=== PATIENT | male | born 1975 | race Hispanic/Latino ===

== ENCOUNTER → 2018-11-07 15:30 | Outpatient (CLI) | payer OTHER, SELFPAY ==
--- NOTE | 2018-11-07 15:41 | RAD_ITS ---
STUDY: X-RAY - CERVICAL SPINE REASON FOR EXAM: Male, 43 years old. Headaches, head pressure. TECHNIQUE: 6 view(s) of the cervical spine were obtained. COMPARISON: None FINDINGS: Normal anterior atlantoaxial articulation. Normal odontoid process. Normal cervical lordosis. There is mild endplate spondylolysis at C6-C7. Normal visualized intervertebral neuroforamina. The soft tissue structures are unremarkable. RAD/Cerv Spine 4 or 5 Views IMPRESSION: Mild degenerative changes at C6-C7. Electronically Signed: Loreto Mosher MD at 17:37 EDT Tel , Service support ,
== END ==
PROVIDERS: Family Provider Family Medicine; PCP Family Medicine; Referring Provider Family Medicine; Visit Provider Family Medicine
DX: R51 Headache (principal)
CPT/HCPCS: 72050

== ENCOUNTER → 2019-02-10 07:55 | Outpatient (CLI) | payer OTHER, SELFPAY ==
[2019-02-10 10:16] LABS: Cholesterol 209 mg/dL (200); High Density Lipoprotein 33 mg/dL; Triglycerides 615 mg/dL
== END ==
PROVIDERS: Family Provider Family Medicine; PCP Family Medicine; Referring Provider Family Medicine; Visit Provider Family Medicine
DX: R73.01 Impaired fasting glucose (principal)
CPT/HCPCS: 36415; 80061

== ENCOUNTER → 2019-03-06 15:41 | Outpatient (CLI) | payer OTHER, SELFPAY ==
[2019-03-06 17:41] LABS: Erythrocyte Sedimentation Rate 3 mm/hr (0-15)
[2019-03-06 17:48] LABS: ALB/GLOB Ratio 1.1 RATIO (0.9-2.4); AST(SGOT) 28 U/L (15-37); Alanine Aminotransfer ALT/SGPT 59 U/L (16-61); Albumin, Serum 3.8 g/dL (3.2-5.0); Alkaline Phosphatase 66 U/L (45-117); Anion Gap 5 (5-15); BUN 13 mg/dL (7-18); BUN/Creat Ratio 11.8 RATIO (10-20); CRP < 2.90 mg/L (0.0-3.0); Calcium,Total 8.8 mg/dL (8.5-10.1); Chloride 105 mmol/L (98-107); EST Glomerular Filtration Rate 78 mL/min (>60); Est Glom Filt Rate - Afr Amer 95 mL/min (>60); Globulin 3.5 g/dL (2.2-4.2); Glucose 95 mg/dL (74-106); Potassium 3.7 mmol/L (3.5-5.1); Protein, Total 7.3 g/dL (6.4-8.2); Sodium Level 137 mmol/L (136-145)
== END ==
PROVIDERS: Family Provider Family Medicine; PCP Family Medicine; Referring Provider Family Medicine; Visit Provider Family Medicine
DX: R51 Headache (principal)
CPT/HCPCS: 36415; 80053; 85652; 86140

== ENCOUNTER → 2019-07-26 12:21 | Outpatient (CLI) | payer OTHER, SELFPAY | PROVIDERS: PCP Family Medicine; Referring Provider Physician Assistant; Visit Provider Physician Assistant | DX: Z11.59 Encounter for screening for other viral diseases (principal) | CPT/HCPCS: 87635; G2023; U0003 ==

== ENCOUNTER 2019-09-15 15:30 | Emergency (ER) | payer OTHER, SELFPAY ==
[2019-09-15 15:31] VITALS: BP 135/98; PULSE 104; RESP 18; TEMP 36.5; O2SAT 94; BMI 25.9
--- NOTE | 2019-09-15 15:40 | CT_ITS ---
STUDY: CT BRAIN WITHOUT CONTRAST REASON FOR EXAM: Male, 43 years old. Headache X 3 WEEKS RADIATION DOSAGE (If Supplied By Facility): CTDIvol = ( 44.99 ) mGy, DLP = ( 762.36 ) mGycm TECHNIQUE: Transaxial CT imaging of the brain was performed without administration of intravenous contrast material. Individualized dose optimization techniques were used for this CT. COMPARISON: No relevant priors. FINDINGS: Normal soft tissue structures. Normal calvarium. Normal size ventricles and extra-axial spaces for the patient''s age. Normal white matter tracts of the cerebral hemispheres. Normal basal ganglia and thalami. Normal brainstem. Normal cerebellum. There is no intracranial hemorrhage. There are no findings of an acute ischemic infarction. Normal visualized paranasal sinuses. CT/Brain/Head without Contrast IMPRESSION: Normal unenhanced CT scan of the brain. Electronically Signed: Dudley Smith MD at 16:30 EDT , Service support ,
--- NOTE | 2019-09-15 15:41 | EKG12_ITS ---
Test Reason : Blood Pressure : / mmHG Vent. Rate : 075 BPM Atrial Rate : 075 BPM P-R Int : 134 ms QRS Dur : 088 ms QT Int : 354 ms P-R-T Axes : 030 013 029 degrees QTc Int : 395 ms Normal sinus rhythm Normal ECG Confirmed by HAYDE BARBOZA MD ([id number]), acquisition editor MALINI LAGUERRE ([id number] on 09/18/2019 1:07:35 PM Referred By: CL Confirmed By:HAYDE BARBOZA MD
--- NOTE | 2019-09-15 15:42 | ED.VIS.GEN ---
History of Present Illness Chief Complaint: Headache Informant: Patient Narrative: 43-year-old male with past medical history of hypertension hyperlipidemia presents with increased head pressure. States that he has had the feeling that he has pressure in his head for the past 2 to 3 weeks. States is been constant in nature. States it is worse when he exerts himself. Denies any vision change, fever, chills, neck pain, trauma. Denies any nausea or vomiting. Patient had these symptoms before in the past and felt they were likely related to seasonal allergies. Denies any drugs or alcohol. Past Medical History - Allergies and Home Meds Allergies/Adverse Reactions: Allergies citalopram [From Celexa] Allergy (Verified 09/15/19 15:31) Rash Primary Care Physician: Elida Szymanski MD [Primary Care Provider] - Past Medical History: - - HTN and hypertriglyceridemia Surgical History: no surgical history Lives: Spouse/ Significant Other Smoking Status: Never smoker Alcohol: None Drugs: None Review of Systems General: Denies: Chills, Fever, Sweats Eyes: Denies: Visual changes - bilaterally, Diplopia ENT: Denies: Rhinorrhea, Sore throat Cardiovascular: Denies: Chest pain, Palpitations Respiratory: Denies: Dyspnea, Cough, Dyspnea on exertion Gastrointestinal: Denies: Abdominal pain, Nausea, Vomiting, Diarrhea, Melena, Hematochezia Genitourinary: Denies: Dysuria, Hematuria, Frequency Musculoskeletal: Denies: Back pain, Extremity Pain Skin: Denies: Rash, Wounds Neurological: Reports: Headache. Denies: Weakness, Numbness Physical Exam Vital Signs/Narrative: Vital Signs Temp Pulse Resp BP Pulse Ox 09/15/19 15:31 97.7 F L 104 H 18 135/98 H 94 Inital Vital Signs reviewed: Yes General: Well nourished, Well developed, No Acute Distress Head: Normocephalic, Atraumatic Eyes: Perrl, EOMI ENT: Moist mucous membranes, No rhinorrhea Neck: Supple, Nontender Cardiovascular: Regular rate, Regular rhythm, No murmurs Respiratory: No distress, CTA bilaterally, Chest nontender Abdomen: Soft, Nontender, Nondistended, Normal bowel sounds Back: Nontender, Normal Inspection Extremities: Nontender, No edema Skin: Normal color, No rash Neurological: Alert, Oriented x3, Cranial nerves II-XII grossly intact, Normal Strength, Normal Sensation Psychological: Normal affect, Normal Mood Diagnostic/Tx/Re-eval Clinical Impression(s) from Imaging Studies Brain CT 09/15/19 15:40 IMPRESSION: Normal unenhanced CT scan of the brain. Electronically Signed: Dudley Smith MD at 16:30 EDT , Service support , Laboratory Data 09/15/19 09/15/19 15:55 15:55 WBC 6.4 RBC 5.16 Hgb 15.0 Hct 43.2 MCV 83.7 MCH 29.1 MCHC 34.7 RDW Std Deviation 39.1 RDW Coeff of Rajan 13.0 Plt Count 200 MPV 10.9 Immature Gran % (Auto) 0.300 Neut % (Auto) 58.8 Lymph % (Auto) 29.1 Dale % (Auto) 8.3 Eos % (Auto) 3.0 Baso % (Auto) 0.5 Absolute Neuts (auto) 3.7 Absolute Lymphs (auto) 1.85 Nucleated RBC % 0 Sodium 142 Potassium 3.8 Chloride 112 H Carbon Dioxide 27.0 Anion Gap 3 L BUN 18 Creatinine 1.21 Estim Creat Clear Calc 80.34 Est GFR (MDRD) Af Amer 85 Est GFR (MDRD) Non-Af 70 BUN/Creatinine Ratio 14.9 Glucose 130 H Calcium 8.6 Troponin I < 0.015 - Rhythm Strip Rhythm Strip: Sinus Rhythm Rate: 75 Ectopy: None - EKG Initial EKG Interpretation: Sinus Rhythm - Sinus rhythm at 75 bpm. NM interval 134 ms. QTC of 395 ms. No evidence of acute ischemia. - Medical Decision Making Patient appears well nontoxic. Vital signs within normal limits. Focal neurologic deficit. CT brain negative. Patient symptoms were not sudden in onset and not been maximal. Low concern for subarachnoid hemorrhage. Work within normal limits. EKG nonischemic. Troponin negative. Patient will be given Flonase as well as Zyrtec for home. Asked to return for new or worsening symptoms. Discharged home in stable condition. Impression: 1. Headache 2. Seasonal allergies ED Disposition - Plan for ED Patient: Disposition: Home or Assisted Living Instructions: ED Headache Sinus, ED Headache Unspecified Prescriptions: Fluticasone 0.05% [Flonase Nasal [place]] 2 spray NASAL DAILY #1 nasal.sry Prescription Printed Cetirizine HCl [Zyrtec] 10 mg PO DAILY #30 tab Prescription Printed Referrals: Elida Szymanski MD [Primary Care Provider] -
[2019-09-15 15:46] VITALS: BP 131/78; PULSE 81; RESP 16; O2SAT 96
[2019-09-15] MEDS: 0.9% Normal Saline 1,000 ML 999 ML IV (15:56)
[2019-09-15 16:25] LABS: Absolute Lymphocyte Count 1.85 X10^3/uL (0.83-4.51); Absolute Neutrophil Count 3.7 X10^3/uL (2.0-7.7); Basophil# 0.03 X10^3/uL; Basophil% 0.5 % (0-1); Eosinophil# 0.19 X10^3/uL; Hematocrit 43.2 % (40-54); Lymphocyte # 1.85 X10^3/ul (4.0); Lymphocyte % 29.1 % (19-41); Mean Corp Hgb Conc 34.7 g/dL (32-36); Mean Corpuscular Hgb 29.1 pg (27.0-32.0); Mean Corpuscular Volume 83.7 fL (80-94); Mean Platelet Vol. 10.9 fl (6.2-12.0); Monocyte# 0.53 X10^3/uL; Monocyte% 8.3 % (0-10); NRBC Flagged by Analyzer 0 % (0-5); Neutrophil # 3.74 X10^3/uL (2.7-7.7); Neutrophil % 58.8 % (47-70); Platelet Count 200 K/mm3 (150-450); RBC Distribution Width SD 39.1 fl (35.1-43.9); Red Blood Count 5.16 M/mm3 (4.6-6.2); White Blood Count 6.4 K/mm3 (4.4-11.0)
[2019-09-15 16:28] LABS: Anion Gap 3 (5-15); BUN 18 mg/dL (7-18); BUN/Creat Ratio 14.9 RATIO (10-20); Calcium,Total 8.6 mg/dL (8.5-10.1); Chloride 112 mmol/L (98-107); Creatinine, Serum 1.21 mg/dL (0.70-1.30); EST Glomerular Filtration Rate 70 mL/min (>60); Est Glom Filt Rate - Afr Amer 85 mL/min (>60); Estimated Creatinine Clearance 80.34 ml/min; Glucose 130 mg/dL (74-106); Potassium 3.8 mmol/L (3.5-5.1); Sodium Level 142 mmol/L (136-145)
[2019-09-15 17:15] VITALS: BP 120/76; PULSE 75; RESP 19; O2SAT 97
== END 2019-09-15 17:19 | disposition home or self-care (01) ==
PROVIDERS: Emergency Provider Emergency Medicine; PCP Family Medicine
DX: R51 Headache (principal); J30.1 Allergic rhinitis due to pollen; I10 Essential (primary) hypertension; E78.1 Pure hyperglyceridemia; E78.5 Hyperlipidemia, unspecified
CPT/HCPCS: 70450; 80048; 84484; 85025; 93005; 96360; 99284; J7030; A4216

== ENCOUNTER → 2019-09-16 10:25 | Outpatient (CLI) | payer OTHER, SELFPAY ==
[2019-09-15 15:31] VITALS: BMI 25.9
[2019-09-16 11:35] LABS: Hemoglobin A1c 5.7 % (3.8-5.6)
[2019-09-16 11:44] LABS: AST(SGOT) 31 U/L (15-37); Alanine Aminotransfer ALT/SGPT 46 U/L (16-61); Albumin, Serum 3.7 g/dL (3.2-5.0); Alkaline Phosphatase 74 U/L (45-117); Anion Gap 6 (5-15); BUN 14 mg/dL (7-18); BUN/Creat Ratio 13.9 RATIO (10-20); Calcium,Total 8.4 mg/dL (8.5-10.1); Chloride 107 mmol/L (98-107); Cholesterol 229 mg/dL (200); Creatinine, Serum 1.01 mg/dL (0.70-1.30); EST Glomerular Filtration Rate 86 mL/min (>60); Est Glom Filt Rate - Afr Amer 104 mL/min (>60); Globulin 3.7 g/dL (2.2-4.2); Glucose 107 mg/dL (74-106); High Density Lipoprotein 35 mg/dL; Potassium 4.1 mmol/L (3.5-5.1); Protein, Total 7.4 g/dL (6.4-8.2); Sodium Level 138 mmol/L (136-145); Triglycerides 413 mg/dL
== END ==
PROVIDERS: PCP Family Medicine; Referring Provider Family Medicine; Visit Provider Family Medicine
DX: E78.5 Hyperlipidemia, unspecified (principal); R51 Headache; Z83.3 Family history of diabetes mellitus
CPT/HCPCS: 36415; 80053; 80061; 83036

== ENCOUNTER → 2019-10-04 15:41 | Outpatient (CLI) | payer OTHER, SELFPAY ==
[2019-09-15 15:31] VITALS: BMI 25.9
[2019-10-04 17:36] LABS: Erythrocyte Sedimentation Rate 4 mm/hr (0-15)
[2019-10-04 17:53] LABS: CRP < 2.90 mg/L (0.0-3.0)
== END ==
PROVIDERS: PCP Family Medicine; Referring Provider Psychiatry & Neurology Neurology; Visit Provider Psychiatry & Neurology Neurology
DX: G43.011 Migraine without aura, intractable, with status migrainosus (principal)
CPT/HCPCS: 36415; 85652; 86140

== ENCOUNTER → 2019-10-12 15:27 | Outpatient (CLI) | payer OTHER, SELFPAY ==
[2019-10-12 15:12] VITALS: BMI 25.9
--- NOTE | 2019-10-12 15:28 | RAD_ITS ---
STUDY: X-RAY - CERVICAL SPINE REASON FOR EXAM: Male, 43 years old. Pain TECHNIQUE: 6 view(s) of the cervical spine were obtained. COMPARISON: None FINDINGS: There is no evidence of fracture or dislocation in the cervical spine. The dens is intact. The vertebral body heights and disc spaces are well-maintained. There are no significant degenerative changes. There is straightening of the cervical lordosis. The prevertebral soft tissues are unremarkable. There is no radiodense foreign body. RAD/Cerv Spine 4 or 5 Views IMPRESSION: No fracture or dislocation in the cervical spine. Straightening of the cervical spine which can be seen with paraspinal muscle spasm. Electronically Signed: Stan Sher, at 16:36 EDT Tel , Service support ,
== END ==
PROVIDERS: PCP Family Medicine; Referring Provider Physician Assistant; Visit Provider Physician Assistant
DX: R51 Headache (principal)
CPT/HCPCS: 72050

== ENCOUNTER → 2019-10-13 16:03 | Outpatient (CLI) | payer OTHER, SELFPAY ==
[2019-09-15 15:31] VITALS: BMI 25.9
[2019-10-12 15:12] VITALS: BMI 25.9
--- NOTE | 2019-10-13 16:45 | MRI_ITS ---
STUDY: MRI BRAIN WITH AND WITHOUT CONTRAST REASON FOR EXAM: Male, 43 years old. chronic occipital h/a TECHNIQUE: Standardized multiplanar fat and water weighted pulse sequences were obtained. 16ml Dotarem via IV was administered for the contrast portion of the examination. COMPARISON: September [address] head FINDINGS: Normal size of the ventricles and extra-axial spaces for the patient''s age. Normal white matter tracts of the supratentorial brain. Normal bilateral basal ganglia. Normal thalami. There is no extra-axial fluid accumulation. There is an incidental left frontal development of venous anomaly. Normal flow voids within the major intracranial circulation suggesting patency by spin echo criteria. Normal venous enhancement. There is no enhancing intra-axial or extra-axial abnormality. Normal sella turcica, pituitary gland, infundibular stalk, optic chiasm and hypothalamus. Normal tectal plate and pineal gland. Normal midbrain, ignacio and medulla. Normal cerebellum. Normal basal cisterns. Normal bilateral temporal bones. Normal bilateral internal auditory canals. No demonstrated orbital abnormality, within the constraints of a routine brain study. Normal visualized paranasal sinuses. Normal calvarium and skull base. Normal visualized soft tissue structures. Normal visualized upper cervical spine. MRI/Brain W/WO Contrast IMPRESSION: Normal brain MRI. Electronically Signed: Brandy Vasques, at 17:35 EDT Tel , Service support ,
== END ==
PROVIDERS: PCP Family Medicine; Referring Provider Family Medicine; Visit Provider Family Medicine
DX: G43.C1 Periodic headache syndromes in child or adult, intractable (principal)
CPT/HCPCS: 70553; A9575

== ENCOUNTER 2020-04-28 22:29 | Emergency (ER) | payer OTHER, SELFPAY ==
[2020-04-28 22:30] VITALS: BP 158/113; PULSE 73; RESP 15; TEMP 36.8; O2SAT 97; BMI 27.0
--- NOTE | 2020-04-28 22:48 | ED.DCSUM_ITS ---
- ER Visit Summary Date of Service: 04/28/20 Chief Complaint: Head throbbing and ears ringing with elevated blood pressure last several days. History of Present Illness: The patient is a 44 M history of high cholesterol and prior migraine headaches. Patient states the last 3 days has noticed his blood pressure has been elevated he has had throbbing to his head and ringing in his ears. He is not treated for hypertension. He denies any chest pain or shortness of breath. Physical Examination: Middle-aged male no acute distress vital signs initial blood pressure 158/113 otherwise stable and afebrile. H EENT exam unremarkable. Pupils round reactive extra motions are intact no facial droop. Normal speech. Moist mucous membranes. Neck nontender no lymphadenopathy. Lungs clear to auscultation bilaterally. Heart regular rhythm rate about 70 no murmur. Abdomen soft nontender normal bowel sounds no peritoneal signs. Patient moving all 4 extremities. 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 Dorsi plantarflexion intact. No edema. Neurologically is awake and alert with no focal motor deficits. NIH score is 0. Test Results: None Emergency Department Course and Treatment: Patient has a normal exam. He is aracely vated blood pressure symptoms may be from untreated and undiagnosed hypertension. He will be given 20 mg of p.o. lisinopril and observed. Repeat exam at 2355 patient is doing well. Neurologic exam remains normal. His blood pressure is currently running 141/95. Treatment Plan: Log blood pressures twice daily. Follow-up with his primary care physician to recheck his blood pressure and decide if they need to adjust the dosage or change the medication. Lisinopril 20 mg once a day. Disposition: Discharge Impression: Newly diagnosed hypertension This note was generated with [employer] ([employer]) dictation software. It may contain incorrect words, spelling, and punctuation that were not noted in review of the chart prior to signing ED Disposition - Plan for ED Patient: Referrals: Brayden Leon DO [Primary Care Provider] -
[2020-04-28 23:00] VITALS: BP 139/89
[2020-04-28] MEDS: Lisinopril 20 MG Tablet PO (23:09)
[2020-04-28 23:43] VITALS: BP 141/95; PULSE 76; RESP 22; O2SAT 96
--- NOTE | 2020-04-28 23:57 | ED.DEP ---
ED Disposition - Plan for ED Patient: Disposition: Home or Assisted Living Instructions: ED Hypertension, New (Begin Treatment) Prescriptions: Lisinopril [Zestril] 20 mg PO DAILY #30 tab Prescription Printed Referrals: Brayden Leon DO [Primary Care Provider] - 5-7 Days Additional Instructions: Log your blood pressures twice daily and when you follow-up with your doctor show me your pressure reading so they can decide if they need to adjust the blood pressure medication. Lisinopril the blood pressure medication 20 mg once a day. Hold the medication if your blood pressure is running below 100.
== END 2020-04-29 00:06 | disposition home or self-care (01) ==
PROVIDERS: Emergency Provider Emergency Medicine; PCP Family Medicine
DX: I10 Essential (primary) hypertension (principal); E78.00 Pure hypercholesterolemia, unspecified; Z79.899 Other long term (current) drug therapy
CPT/HCPCS: 99284

== ENCOUNTER → 2020-05-29 15:21 | Outpatient (CLI) | payer OTHER, SELFPAY ==
--- NOTE | 2020-05-29 15:27 | MRI_ITS ---
STUDY: MRA NECK WITH AND WITHOUT CONTRAST REASON FOR EXAM: Male, 44 years old. HEADACHE, HTN, THROBBING SENSATION IN EARS TECHNIQUE: 3-D [id number] (TOF) imaging was performed in an 1.5 T MRI scanner. dotarem 15ml IV was administered for the contrast enhanced images. COMPARISON: None. FINDINGS: RIGHT CAROTID ARTERIES: Normal right common carotid artery (CCA). Normal right common carotid bulb. Normal origin of the right internal carotid (ICA) artery without a hemodynamically significant stenosis. Normal visualized cervical portion of the right internal carotid artery. Normal origin of the right external carotid artery (ECA). LEFT CAROTID ARTERIES: Normal left common carotid artery (CCA). Normal left common carotid bulb. Normal origin of the left internal carotid (ICA) artery without a hemodynamically significant stenosis. Normal visualized cervical portion of the left internal carotid artery. Normal origin of the left external carotid artery (ECA). VERTEBRAL ARTERIES: Normal antegrade flow within the bilateral vertebral artery without a hemodynamically significant stenosis. MRI/MRA Neck WITH and W/O Contrast IMPRESSION: Normal bilateral cervical carotid and vertebral arteries. Electronically Signed: Marco Martinez MD at 16:21 EDT Tel , Service support ,
--- NOTE | 2020-05-29 15:27 | MRI_ITS ---
STUDY: MRA OF THE HEAD WITHOUT CONTRAST REASON FOR EXAM: Male, 44 years old. HEADACHE, HTN, THROBBING SENSATION IN HIS EARS TECHNIQUE: 3-D [id number] (TOF) imaging was performed with MIPs. The study was performed unenhanced. COMPARISON: None. FINDINGS: Normal bilateral petrous carotid arteries. Normal right cavernous carotid artery with a normal supraclinoid bifurcation. Normal left cavernous carotid artery with a normal supraclinoid bifurcation. Normal right A1 segments of the anterior cerebral artery. Normal left A1 segments of the anterior cerebral artery. Normal intact anterior communicating artery (ACOM). Normal bilateral A2 segments of the anterior cerebral arteries. Normal right M1 and M2 segments of the middle cerebral arteries, with a normal M1 bifurcation. Normal left M1 and M2 segments of the middle cerebral arteries, with a normal M1 bifurcation. Normal right posterior communicating artery (PCOM). Normal left posterior communicating artery (PCOM). Normal bilateral vertebral arteries. Normal basilar artery with a normal basilar bifurcation. The visualized bilateral superior cerebellar (SCA) arteries are normal. Normal bilateral P1, P2 and visualized P3 segments of the posterior cerebral arteries. There is no demonstrated aneurysm of the [place]. There is no major vessel occlusion or hemodynamically significant stenosis. There is no demonstrated abnormality of the visualized brain. MRI/MRA Head ONLY without Contrast IMPRESSION: Normal MRA of the head Electronically Signed: Marco Martinez MD at 16:22 EDT Tel , Service support ,
== END ==
PROVIDERS: PCP Family Medicine; Referring Provider Family Medicine; Visit Provider Family Medicine
DX: R51.9 Headache, unspecified (principal); I10 Essential (primary) hypertension
CPT/HCPCS: 70544; 70549; A9575

== ENCOUNTER → 2020-07-23 06:09 | Outpatient (CLI) | payer OTHER, SELFPAY ==
[2020-07-23 07:02] LABS: Absolute Lymphocyte Count 1.94 X10^3/uL (0.83-4.51); Absolute Neutrophil Count 3.2 X10^3/uL (2.0-7.7); Basophil# 0.04 X10^3/uL; Basophil% 0.7 % (0-1); Eosinophils% 4.9 % (0-5); Hematocrit 43.4 % (40-54); Hemoglobin 14.8 g/dL (13.0-16.5); Lymphocyte # 1.94 X10^3/ul (0.83-4.51); Lymphocyte % 31.6 % (19-41); Mean Corp Hgb Conc 34.1 g/dL (32-36); Mean Corpuscular Hgb 29.1 pg (27.0-32.0); Mean Corpuscular Volume 85.4 fL (80-94); Mean Platelet Vol. 10.9 fl (6.2-12.0); Monocyte# 0.58 X10^3/uL; Monocyte% 9.5 % (0-10); NRBC Flagged by Analyzer 0 % (0-5); Neutrophil # 3.23 X10^3/uL (2.7-7.7); Neutrophil % 52.6 % (47-70); Platelet Count 207 K/mm3 (150-450); RBC Distribution Width CV 12.3 % (11.6-14.6); RBC Distribution Width SD 38.5 fl (35.1-43.9); Red Blood Count 5.08 M/mm3 (4.6-6.2); White Blood Count 6.1 K/mm3 (4.4-11.0)
[2020-07-23 07:25] LABS: AST(SGOT) 29 U/L (15-37); Alanine Aminotransfer ALT/SGPT 51 U/L (16-61); Albumin, Serum 3.5 g/dL (3.2-5.0); Alkaline Phosphatase 80 U/L (45-117); Anion Gap 6 (5-15); BUN 13 mg/dL (7-18); Calcium,Total 8.4 mg/dL (8.5-10.1); Chloride 106 mmol/L (98-107); Cholesterol 194 mg/dL (200); EST Glomerular Filtration Rate 87 mL/min (>60); Est Glom Filt Rate - Afr Amer 105 mL/min (>60); Globulin 3.6 g/dL (2.2-4.2); Glucose 107 mg/dL (74-106); High Density Lipoprotein 34 mg/dL; Potassium 3.6 mmol/L (3.5-5.1); Protein, Total 7.1 g/dL (6.4-8.2); Sodium Level 139 mmol/L (136-145); Triglycerides 391 mg/dL; Very Low Density Lipoprotein 78 mg/dL (5-40)
[2020-07-23 08:33] LABS: Hemoglobin A1c 5.5 % (3.8-5.6)
== END ==
PROVIDERS: PCP Family Medicine; Referring Provider Family Medicine; Visit Provider Family Medicine
DX: Z00.00 Encounter for general adult medical examination without abnormal findings (principal); R73.01 Impaired fasting glucose
CPT/HCPCS: 36415; 80053; 80061; 83036; 85025

== ENCOUNTER 2021-05-12 22:10 | Emergency (ER) | payer OTHER, SELFPAY ==
[2021-05-12 22:12] VITALS: BP 163/102; PULSE 82; RESP 16; TEMP 36.4; O2SAT 98; BMI 27.8
[2021-05-12 22:38] VITALS: BP 142/89
--- NOTE | 2021-05-12 22:41 | EX.ED.DYSGE1 ---
HPI <Dr. Jud Espinal MD - Last Filed: 05/13/21 01:26> History of Present Illness Chief Complaint: Headache <SUNDAY MCDOWELL - Last Filed: 05/13/21 01:23> History of Present Illness Informant: patient Onset/Context/Timing Onset: Days (3) Context: Sudden Onset Timing: Continuous Quality: Throbbing Maximum Severity: Severe Narrative Narrative: Patient presents secondary to headache for 3 days. Patient describes the pain as a constant throbbing starting at the base of his head radiating to the top of his head. Patient states he has dizziness with this, but denies nausea, vomiting, sensitivity to light, lack of coordination. Patient states he has history of similar symptoms, and has seen his primary care physician for the same in the past without definite diagnosis or effective treatment. Patient states he does have arthritis at C6/C7 discovered in previous work-up by primary care doctor. Patient did attempt relief with [id number] medications prior to arrival including ibuprofen 600 mg at 0500 and acetaminophen 1000 mg at 2200. Patient states these were not effective. Patient states he also took his blood pressure at home prior to arrival, noted this was elevated which concerned him, and presented to ED. Prior similar symptoms: Yes Recent Illness/Hospitalization: No PFSH <Dr. Jud Espinal MD - Last Filed: 05/13/21 01:26> PFSH Medical History High cholesterol Migraines Seasonal allergies Home Medications atorvastatin 20 mg tablet 20 mg PO QHS 10/17/20 [History Last Taken Unknown] fenofibrate nanocrystallized 145 mg tablet 145 mg PO DAILY 10/17/20 [History Last Taken Unknown] finasteride 1 mg PO DAILY 05/12/21 [History Last Taken Unknown] Allergy/AdvReac Type Severity Reaction Status Date / Time citalopram [From Celexa] Allergy Rash Verified 05/12/21 22:15 Seasonal Allergies Allergy Unknown Unknown Uncoded 05/12/21 22:15 Family History Father Diabetes Myocardial infarction, Onset Age: 80 Mother Hyperlipemia Surgical History History of rotator cuff surgery History of shoulder surgery Social History Smoking Status: Never smoker alcohol intake: never substance use type: does not use what type of physical activity do you participate in: running and weight training frequency: 5-6 times per week <SUNDAY MCDOWELL - Last Filed: 05/13/21 01:23> ROS ED Constitutional Constitutional ED: Denies chills, fever(s), sweats or weight loss Eyes Eyes: Denies blurry vision, change in vision or diplopia ENT ENT ED: Denies ear pain, rhinorrhea or sore throat Cardiovascular Cardiovascular: Denies chest pain Respiratory/Chest Respiratory/Chest: Denies cough or dyspnea Gastrointestinal Gastrointestinal: Denies abdominal pain, constipation, diarrhea, nausea or vomiting Genitourinary Genitourinary ED: Denies dysuria or urinary frequency Musculoskeletal Musculoskeletal: Reports neck pain; Denies arthralgias or myalgias Integumentary Denies rash Neurologic Neurologic: Reports as per HPI and headache(s); Denies dizziness, focal weakness, lack of coordination, loss of vision, memory loss, radicular pain or weakness Psychiatric Psychiatric: Denies anxiety or depression Endocrine Endocrinology: Denies polydipsia or polyuria EXAM <Dr. Jud Espinal MD - Last Filed: 05/13/21 01:26> Physical Exam Const Vital Signs: 05/12/21 22:12 05/12/21 22:38 05/13/21 00:50 Temperature 97.6 F L Temperature Source Temporal Pulse Rate 82 75 Respiratory Rate 16 17 Blood Pressure 163/102 H 142/89 H 130/74 H Blood Pressure Mean 122 106 92 Pulse Ox 98 98 Oxygen Delivery Method Room Air Room Air 05/13/21 01:13 05/13/21 01:19 Temperature Temperature Source Pulse Rate 83 83 Respiratory Rate 22 H 20 H Blood Pressure 127/80 H 127/88 H Blood Pressure Mean 95 Pulse Ox 99 99 Oxygen Delivery Method Room Air <SUNDAY MCDOWELL - Last Filed: 05/13/21 01:23> Physical Exam Const Vital Signs: 05/12/21 22:12 05/12/21 22:38 05/13/21 00:50 Temperature 97.6 F L Temperature Source Temporal Pulse Rate 82 75 Respiratory Rate 16 17 Blood Pressure 163/102 H 142/89 H 130/74 H Blood Pressure Mean 122 106 92 Pulse Ox 98 98 Oxygen Delivery Method Room Air Room Air 05/13/21 01:13 05/13/21 01:19 Temperature Temperature Source Pulse Rate 83 83 Respiratory Rate 22 H 20 H Blood Pressure 127/80 H 127/88 H Blood Pressure Mean 95 Pulse Ox 99 99 Oxygen Delivery Method Room Air Positive well nourished and well developed General Appearance ED: well developed HEENT Reports moist mucous membranes HEENT Narrative: Mild tenderness to palpation of scalp. tenderness; Negative for trauma Eyes PERRL and EOMs intact bilaterally Neck no lymphadenopathy and supple Chest Wall inspection of chest normal Resp normal respiratory effort and clear to auscultation bilaterally Cardio regular rate and regular rhythm GI normal to inspection, nondistended, normoactive bowel sounds Palpation: soft Back/Spine no CVA tenderness Back/Spine Narrative: Mild tenderness to palpation of C-spine. Cervical Spine: cervical spine tenderness Extremity normal to inspection General Extremety ED: Negative for edema General Extremity: Negative for edema Neuro oriented x3 and CN's II-XII intact bilaterally Sensorium / Orientation: alert Motor Exam: strength 5/5 throughout Psych mental status grossly normal Skin no rashes or lesions noted [facility] <Dr. Jud Espinal MD - Last Filed: 05/13/21 01:26> [facility] Lab Data Labs: Laboratory Results - last 24 hr 05/12/21 05/12/21 23:44 23:44 WBC 6.6 RBC 5.44 Hgb 16.0 Hct 45.6 MCV 83.8 MCH 29.4 MCHC 35.1 RDW Std Deviation 37.8 RDW Coeff of Rajan 12.5 Plt Count 222 MPV 10.8 Immature Gran % (Auto) 0.500 Neut % (Auto) 55.9 Lymph % (Auto) 28.4 Glacier % (Auto) 11.0 H Eos % (Auto) 3.4 Baso % (Auto) 0.8 Absolute Neuts (auto) 3.7 Absolute Lymphs (auto) 1.86 Nucleated RBC % 0 Sodium 140 Potassium 3.7 Chloride 109 H Carbon Dioxide 27.0 Anion Gap 4 L BUN 22 H Creatinine 1.18 Estim Creat Clear Calc 75.47 Est GFR (MDRD) Af Amer 86 Est GFR (MDRD) Non-Af 71 BUN/Creatinine Ratio 18.6 Glucose 99 Calcium 9.3 Radiography Diagnostic Testing: Clinical Impression(s) from Imaging Studies Brain CT 05/13/21 23:21 IMPRESSION: 1. Normal unenhanced CT scan of the brain. 2. No ischemic or hemorrhagic cerebral infarction cranial neoplasms. 3. No subdural, epidural, or intracerebral hematomas, hemorrhage or contusion. 4. Normal calvarium. 5. No evidence of an acute or chronic sinusitis. Electronically Signed: Ata Saenz MD at 1:07 EDT , Treatment and Re-Evaluation Narrative: Patient seen and evaluated with [employer] student. I independently saw the patient and performed my own history and physical as well as exam. I was personally involved in all decision-making regarding testing and treatment as well as interpretation of test results. Patient presents secondary to headache and hypertension. He has frequent headaches and has for the past several years. He has undergone multiple work-ups with no definitive cause. He has recently been watching his blood pressure and noted it was quite elevated today. He became nervous about having a stroke from the elevated blood pressure and presented to the ER for evaluation. He does report pressure in the posterior portion of his head that wraps around the top of his head. He denies nausea or light sensitivity at this time. Denies recent head injury. Patient sitting upright well at room air no acute distress. The time of my evaluation is a slight blood pressure is 139. Head and neck examination unremarkable. Heart is regular rate and rhythm. Lung sounds are clear. Abdomen is soft nontender. Neuro exam is normal. EKG, head CT, lab work obtained. CT head reveals no acute abnormalities. EKG reveals no acute ischemia and no evidence of LVH from longstanding hypertension. Lab work is normal. On repeat evaluation patient resting comfortably after receiving Toradol, Reglan, and Benadryl. He does note that his headache is improved. Systolic blood pressure is currently 127. Patient is to follow-up with his primary care physician. He is comfortable with the work-up and findings tonight. Return instructions provided. <SUNDAY MCDOWELL - Last Filed: 05/13/21 01:23> [facility] Narrative Medical decision making narrative: Benadryl, Reglan, Toradol, and 1 L bolus ordered. Patient verbalizes concern for repeated headaches with unexplained etiology, as well as potential for systemic hypertensive effects. CBC, BMP, head CT, and EKG ordered. Lab Data Attestation: I reviewed the patient's lab results. Labs: Laboratory Results - last 24 hr 05/12/21 05/12/21 23:44 23:44 WBC 6.6 RBC 5.44 Hgb 16.0 Hct 45.6 MCV 83.8 MCH 29.4 MCHC 35.1 RDW Std Deviation 37.8 RDW Coeff of Rajan 12.5 Plt Count 222 MPV 10.8 Immature Gran % (Auto) 0.500 Neut % (Auto) 55.9 Lymph % (Auto) 28.4 Glacier % (Auto) 11.0 H Eos % (Auto) 3.4 Baso % (Auto) 0.8 Absolute Neuts (auto) 3.7 Absolute Lymphs (auto) 1.86 Nucleated RBC % 0 Sodium 140 Potassium 3.7 Chloride 109 H Carbon Dioxide 27.0 Anion Gap 4 L BUN 22 H Creatinine 1.18 Estim Creat Clear Calc 75.47 Est GFR (MDRD) Af Amer 86 Est GFR (MDRD) Non-Af 71 BUN/Creatinine Ratio 18.6 Glucose 99 Calcium 9.3 Radiography Diagnostic Testing: Clinical Impression(s) from Imaging Studies Brain CT 05/13/21 23:21 IMPRESSION: 1. Normal unenhanced CT scan of the brain. 2. No ischemic or hemorrhagic cerebral infarction cranial neoplasms. 3. No subdural, epidural, or intracerebral hematomas, hemorrhage or contusion. 4. Normal calvarium. 5. No evidence of an acute or chronic sinusitis. Electronically Signed: Ata Saenz MD at 1:07 EDT , EKG Initial EKG: Attestation: I personally reviewed and interpreted this EKG as follows: Interpretation: Sinus Rhythm (Rate of 78 bpm) and No Acute Injury Pattern Treatment and Re-Evaluation Narrative: Patient's lab work reviewed and unremarkable. Patient's head CT also negative. On reevaluation, patient is comfortably resting with eyes closed with a current blood pressure of 127/80. Results reviewed with patient and . Patient understanding of plan to follow-up with primary care physician for further work-up, but at this time reassurance of no acute pathology. Reasons for return to ED reviewed. Discharge Plan Triage Chief Complaint: Headache ED Provider: Jud Espinal Dx/Rx/DC Orders Clinical Impression: Headache Instructions: ED Headache Unspecified Prescriptions: No Action atorvastatin 20 mg tablet 20 mg PO QHS RF: 0 fenofibrate nanocrystallized 145 mg tablet 145 mg PO DAILY RF: 0 finasteride 1 mg tablet 1 mg PO DAILY RF: 0 Primary Care Provider: Connie Ortega Referrals: Connie Ortega MD [Primary Care Provider] - 1-2 Weeks Disposition Disposition: Home, Self Care Discharge Date/Time: 05/13/21 01:21
--- NOTE | 2021-05-12 23:22 | EKG12_ITS ---
Test Reason : HEADACHE Blood Pressure : / mmHG Vent. Rate : 078 BPM Atrial Rate : 078 BPM P-R Int : 146 ms QRS Dur : 088 ms QT Int : 356 ms P-R-T Axes : 034 -03 037 degrees QTc Int : 405 ms Normal sinus rhythm Normal ECG Confirmed by HAYDE BARBOZA MD ([id number]), script editor CHON MILLS ([id number]) on 05/15/2021 9:13:29 AM Referred By: [place] Confirmed By:HAYDE BARBOZA MD
[2021-05-12] MEDS: Metoclopramide 10 MG/2 ML Vial IV (23:52)
[2021-05-12] MEDS: Ketorolac 30 MG/ML Syringe IV (23:53)
[2021-05-12] MEDS: DiphenhydrAMINE 50 MG/ML Syringe 25 MG IV (23:55)
[2021-05-12] MEDS: 0.9% Normal Saline 1,000 ML 999 ML IV (23:56)
[2021-05-12 23:57] LABS: Absolute Lymphocyte Count 1.86 X10^3/uL (0.83-4.51); Absolute Neutrophil Count 3.7 X10^3/uL (2.0-7.7); Basophil# 0.05 X10^3/uL; Basophil% 0.8 % (0-1); Eosinophil# 0.22 X10^3/uL; Eosinophils% 3.4 % (0-5); Hematocrit 45.6 % (40-54); Lymphocyte # 1.86 X10^3/ul (0.83-4.51); Lymphocyte % 28.4 % (19-41); Mean Corp Hgb Conc 35.1 g/dL (32-36); Mean Corpuscular Hgb 29.4 pg (27.0-32.0); Mean Corpuscular Volume 83.8 fL (80-94); Mean Platelet Vol. 10.8 fl (6.2-12.0); Monocyte# 0.72 X10^3/uL; NRBC Flagged by Analyzer 0 % (0-5); Neutrophil # 3.68 X10^3/uL (2.7-7.7); Neutrophil % 55.9 % (47-70); Platelet Count 222 K/mm3 (150-450); RBC Distribution Width CV 12.5 % (11.6-14.6); RBC Distribution Width SD 37.8 fl (35.1-43.9); Red Blood Count 5.44 M/mm3 (4.6-6.2); White Blood Count 6.6 K/mm3 (4.4-11.0)
[2021-05-13 00:04] LABS: Anion Gap 4 (5-15); BUN 22 mg/dL (7-18); BUN/Creat Ratio 18.6 RATIO (10-20); Calcium,Total 9.3 mg/dL (8.5-10.1); Chloride 109 mmol/L (98-107); Creatinine, Serum 1.18 mg/dL (0.70-1.30); EST Glomerular Filtration Rate 71 mL/min (>60); Est Glom Filt Rate - Afr Amer 86 mL/min (>60); Estimated Creatinine Clearance 75.47 ml/min; Glucose 99 mg/dL (74-106); Potassium 3.7 mmol/L (3.5-5.1); Sodium Level 140 mmol/L (136-145)
[2021-05-13 00:50] VITALS: BP 130/74; PULSE 75; RESP 17; O2SAT 98
[2021-05-13 01:13] VITALS: BP 127/80; PULSE 83; RESP 22; O2SAT 99
[2021-05-13 01:19] VITALS: BP 127/88; PULSE 83; RESP 20; O2SAT 99
--- NOTE | 2021-05-13 23:21 | CT_ITS ---
STUDY: CT BRAIN WITHOUT CONTRAST ENHANCEMENT OF 0012 HOURS ON 05/13/2021 REASON FOR EXAM: 45-year-old male with headaches. RADIATION DOSAGE (If Supplied By Facility): CTDIvol = ( 44.99 ) mGy, DLP = ( 812.98 ) mGycm TECHNIQUE: Transaxial CT imaging of the brain was performed without administration of intravenous contrast material. Individualized dose optimization techniques were used for this CT. COMPARISON: No relevant priors. FINDINGS: Normal soft tissue structures. Normal calvarium. Normal size ventricles and extra-axial spaces for the patient''s age. Normal white matter tracts of the cerebral hemispheres. Normal basal ganglia and thalami. Normal brainstem. Normal cerebellum. There is no intracranial hemorrhage. There are no findings of an acute ischemic or hemorrhagic infarction. No subarachnoid hemorrhage. No intracranial mass lesions. Normal visualized paranasal sinuses. No acute or chronic sinusitis. CT/Brain/Head without Contrast IMPRESSION: 1. Normal unenhanced CT scan of the brain. 2. No ischemic or hemorrhagic cerebral infarction cranial neoplasms. 3. No subdural, epidural, or intracerebral hematomas, hemorrhage or contusion. 4. Normal calvarium. 5. No evidence of an acute or chronic sinusitis. Electronically Signed: Ata Saenz MD at 1:07 EDT ,
== END 2021-05-13 01:21 | disposition home or self-care (01) ==
PROVIDERS: Emergency Provider Emergency Medicine; PCP Internal Medicine; Visit Provider Emergency Medicine
DX: R51.9 Headache, unspecified (principal); I10 Essential (primary) hypertension; E78.00 Pure hypercholesterolemia, unspecified; M47.812 Spondylosis without myelopathy or radiculopathy, cervical region; Z79.899 Other long term (current) drug therapy
CPT/HCPCS: 70450; 80048; 85025; 93005; 96361; 96374; 96375; 99285; J7030; A4216

== ENCOUNTER 2021-05-24 09:32 | Outpatient (CLI) | payer OTHER, SELFPAY ==
[2021-05-24 10:40] LABS: ALB/GLOB Ratio 0.9 RATIO (0.9-2.4); AST(SGOT) 26 U/L (15-37); Alanine Aminotransfer ALT/SGPT 58 U/L (16-61); Albumin, Serum 3.6 g/dL (3.2-5.0); Alkaline Phosphatase 74 U/L (45-117); Anion Gap 6 (5-15); BUN 16 mg/dL (7-18); BUN/Creat Ratio 14.3 RATIO (10-20); Calcium,Total 8.8 mg/dL (8.5-10.1); Chloride 109 mmol/L (98-107); Cholesterol 176 mg/dL (200); Creatinine, Serum 1.12 mg/dL (0.70-1.30); EST Glomerular Filtration Rate 76 mL/min (>60); Est Glom Filt Rate - Afr Amer 92 mL/min (>60); Globulin 3.8 g/dL (2.2-4.2); Glucose 97 mg/dL (74-106); High Density Lipoprotein 49 mg/dL; Potassium 3.8 mmol/L (3.5-5.1); Protein, Total 7.4 g/dL (6.4-8.2); Sodium Level 140 mmol/L (136-145); Triglycerides 131 mg/dL; Very Low Density Lipoprotein 26 mg/dL (5-40)
[2021-05-24 10:48] LABS: Hemoglobin A1c 5.8 % (3.8-5.6)
== END 2021-05-24 23:59 | disposition home or self-care (01) ==
LOC: LAB 09:33
PROVIDERS: PCP Internal Medicine; Referring Provider Internal Medicine; Visit Provider Internal Medicine
DX: E78.00 Pure hypercholesterolemia, unspecified (principal); E78.1 Pure hyperglyceridemia
CPT/HCPCS: 36415; 80053; 80061; 83036

== ENCOUNTER → 2021-08-29 | Outpatient (CLI) | payer OTHER, SELFPAY | END | disposition home or self-care (01) | LOC: SL 20:23 | PROVIDERS: PCP Internal Medicine; Visit Provider Internal Medicine | DX: G47.30 Sleep apnea, unspecified (principal) | CPT/HCPCS: 95810 ==

== ENCOUNTER 2021-11-30 17:34 | Emergency (ER) | payer OTHER, SELFPAY ==
[2021-11-30 17:35] VITALS: BP 142/90; PULSE 95; RESP 14; TEMP 36.8; O2SAT 97; BMI 29.1
--- NOTE | 2021-11-30 17:44 | EDS_ITS ---
HPI <ISSAC Johnston - Last Filed: 11/30/21 18:12> History of Present Illness Chief Complaint: Lower Extremity Injury Narrative Narrative: 46-year-old male with no skin medical history presents the emergency department after mechanical fall 6 days ago. Patient states he fell on his left side. He did hurt originally, only injuring his left hip, left lower back. Denies any head or neck injury. Patient states that he did feel like he is getting better however the last 3 to 4 days he is having worsening pain with any bending, walking, lifting his left leg. Patient is unaware if it is in his hip or in his back. He denies any blood in stool. Patient denies any nausea or vomiting. Patient denies any bowel or bladder incontinence. PFSH <ISSAC Johnston - Last Filed: 11/30/21 18:12> [facility] Medical History High cholesterol Migraines Seasonal allergies Home Medications finasteride 1 mg tablet 1 mg PO DAILY 05/12/21 [History Last Taken Unknown] atorvastatin 20 mg tablet 20 mg PO QHS #90 tabs 07/15/21 [Rx Last Taken Unknown] cyclobenzaprine 10 mg tablet 10 mg PO BID PRN muscle spasm #10 tabs 11/30/21 [Rx Last Taken Unknown] naproxen 500 mg tablet (Naprosyn) 500 mg PO BID PRN pain #20 tabs 11/30/21 [Rx Last Taken Unknown] polymyxin B sulfate 10,000 unit-trimethoprim 1 mg/mL eye drops 1 drp LEFT EYE Q4H PRN 7 days #10 mL 11/30/21 [Rx Last Taken Unknown] Allergy/AdvReac Type Severity Reaction Status Date / Time Seasonal Allergies: Uncoded Allergy Unknown NEEDS Verified 11/30/21 17:35 FOLLOW-UP citalopram [From Celexa] Allergy Rash Verified 11/30/21 17:35 Family History Father Diabetes Myocardial infarction, Onset Age: 80 Mother Hyperlipemia Surgical History History of rotator cuff surgery History of shoulder surgery Social History Smoking Status: Never smoker alcohol intake: never substance use type: does not use what type of physical activity do you participate in: running and weight training frequency: 5-6 times per week ROS <ISSAC Johnston - Last Filed: 11/30/21 18:12> ROS ED ROS Narrative Constitutional: Negative for fever, chills, weight loss, weakness Eyes: Negative for vision loss, vision change, double vision ENT: Negative for any sore throat, ear pain, congestion Cardiovascular: Negative for any chest pain, tightness, palpitations Respiratory: Negative for any cough, sputum production, hemoptysis, dyspnea, dyspnea on exertion, orthopnea Gastrointestinal: Negative for any abdominal pain, nausea, vomiting, diarrhea, constipation, blood in stool, blood in vomit : Negative for any urinary frequency, dysuria, retention, blood in urine Muscle skeletal: Negative for any muscle joint pain, stiffness, myalgias, arthralgias, neck pain. Positive left lower back pain Neurological: Negative for any headache, syncope, numbness or tingling, dizziness Skin: Negative for any rashes, lumps, itching, abrasions, lacerations Psychiatric: Negative for any depression, anxiety, stress, suicidal ideation, homicidal ideation Hematologic: Negative for any easy bruising, excessive bruising, easy bleeding Allergies: Negative for any eczema, hives, rash EXAM <ISSAC Johnston - Last Filed: 11/30/21 18:12> Physical Exam Narrative Exam Narrative: Vital signs reviewed. EENT: Patient does have some red conjunctiva on the left eye, yellow drainage from the corner. This consistent with conjunctivitis Extremities: No peripheral edema, no signs of gross trauma or deformity. Active full range of motion of all extremities. Patient has no discomfort when I passively lift his left leg, patient has no hip pain. Patient does have pain to his lower back when performing extensor mechanism. Neuro: Cranial nerves II through XII intact, no focal neurological deficits. Skin: Clean dry and intact with no rash, purpura, petechiae, vesicles or pustules. Backs/flank: No CVA tenderness, no midline spinal tenderness, no deformity. Patient has pain to the left lumbar spine, negative for any midline spinal tenderness. Negative for any ecchymosis, step-off deformity, edema. Psych: Normal mood and affect. No SI, HI or acute psychosis. Const Vital Signs: 11/30/21 17:35 Temperature 98.2 F Temperature Source Temporal Pulse Rate 95 Respiratory Rate 14 Blood Pressure 142/90 H Blood Pressure Mean 107 Pulse Ox 97 Oxygen Delivery Method Room Air <Dr. Harlan Gonzalez MD - Last Filed: 11/30/21 18:32> Physical Exam Const Vital Signs: 11/30/21 17:35 Temperature 98.2 F Temperature Source Temporal Pulse Rate 95 Respiratory Rate 14 Blood Pressure 142/90 H Blood Pressure Mean 107 Pulse Ox 97 Oxygen Delivery Method Room Air MDM <ISSAC Johnston - Last Filed: 11/30/21 18:12> [facility] Treatment and Re-Evaluation Narrative: Patient appears well, patient appears nontoxic, vital signs are stable. Patient presents to the emergency department with lower back pain from a fall 6 days ago, as well as left eye redness with some drainage. Patient's physical examination is consistent with muscle skeletal pain. Patient had little pain with passive ROM. Patient was given ibuprofen, Flexeril for home. Patient did receive x-rays of the lower lumbar spine secondary to the trauma, patient's x- rays were unremarkable, no osseous abnormality inter by ER physician. Patient will receive drops to the left eye for the conjunctivitis. Patient will also be given a prescription for naproxen, Flexeril instructed return for any worsening symptoms. Patient stable for discharge. <Dr. Harlan Gonzalez MD - Last Filed: 11/30/21 18:32> [facility] Narrative Medical decision making narrative: I have personally performed a face to face assessment of the patient and have reviewed the WILLY Note. I performed a substantive portion of the visit including all aspects of the following. My garrett findings include: History is remarkable for left low back pain status post fall several days ago. He complains of pain with flexion extension of the hip. He denies bowel bladder dysfunction. He denies radicular pain. He denies symptoms of claudication. He denies saddle paresthesia or anesthesia. He states the pain initially was getting better and is now gotten worse. He denies rash or lesions. He denies history of prior back injury. Patient also reported that his eye was red this morning when he awoke and had yellow drainage. Exam is remarkable for purulent conjunctivitis on the left. There is no p hotophobia to direct or consensual light. Full equal round reactive. Extract muscle intact. Sclera is anicteric. There is no preauricular lymphadenopathy. Patient has reproducible left low back pain. Straight leg test is negative. There is no pain ovation of the greater trochanteric region. There is no pain ovation of the iliac wing. There is no neurovascular mise. Patella and ankle reflex are symmetric. EHLs intact. Medical Decision Making three-view x-ray of the lumbar spine was independent reviewed interpreted by me at 03/01/2004. The x-ray is unremarkable. There is no fracture, subluxation, dislocation, spondylolisthesis or spondylolysis. Other additions or changes: NSAID for his back pain and ophthalmic antibiotic for the conjunctivitis Discharge Plan Triage Chief Complaint: Lower Extremity Injury ED Midlevel Provider: Amadeo Ash ED Provider: Harlan Gonzalez Dx/Rx/DC Orders Clinical Impression: Fall, Lumbar contusion, Conjunctivitis Instructions: Conjunctivitis Caused by Infection, Bruises (Contusions) Prescriptions: New naproxen [Naprosyn] 500 mg tablet 500 mg PO BID PRN (Reason: pain) Qty: 20 0RF cyclobenzaprine 10 mg tablet 10 mg PO BID PRN (Reason: muscle spasm) Qty: 10 0RF polymyxin B sulf-trimethoprim 10,000 unit- 1 mg/mL drops 1 drp LEFT EYE Q4H PRN 7 Days Qty: 10 0RF Rx Instructions: while awake; do not exceed 6 doses in 24 hours No Action finasteride 1 mg tablet 1 mg PO DAILY Label Comments: TAKE 1 TABLET BY MOUTH EVERY DAY atorvastatin 20 mg tablet 20 mg PO QHS Qty: 90 1RF Primary Care Provider: Connie Ortega Referrals: Connie Ortega MD [Primary Care Provider] - Activity Restrictions/Additional Instructions: Continue to ice, perform gentle stretching. Use naproxen, Flexeril for your back pain. Use the eyedrops for 7 days every 4 hours while awake. Disposition Disposition: Home, Self Care Discharge Date/Time: 11/30/21 18:25
[2021-11-30] MEDS: cycloBENZAPRine HCl 10 MG Tablet PO (17:52)
[2021-11-30] MEDS: Ibuprofen 400 MG Tablet 800 MG PO (17:52)
--- NOTE | 2021-11-30 17:55 | RAD_ITS ---
STUDY: X-RAY - LUMBAR SPINE REASON FOR EXAM: Male, 46 years old. Fall one week ago. Lower back pain. Difficulty flexing left leg. Pain. Left radiculopathy. TECHNIQUE: 3 view(s) of the lumbar spine were obtained. COMPARISON: None FINDINGS: Normal lumbar lordosis. There is no substantial scoliosis. There is a normal alignment of the vertebrae. Normal vertebral bodies and endplates. Normal disc space heights. There is no evidence of acute fracture or loss of vertebral axial height. The soft tissue structures are unremarkable. RAD/Lumbar Spine 2 or 3 Views IMPRESSION: Normal x-ray examination of the lumbar spine. Electronically Signed: Magen Francois DO at 18:38 EDT ,
== END 2021-11-30 18:25 | disposition home or self-care (01) ==
LOC: ED 18:19
PROVIDERS: Emergency Provider Emergency Medicine; PCP Internal Medicine; Visit Provider Emergency Medicine
DX: S30.0XXA Contusion of lower back and pelvis, initial encounter (principal); E78.00 Pure hypercholesterolemia, unspecified; M54.50 Low back pain, unspecified; M79.605 Pain in left leg; H10.9 Unspecified conjunctivitis; W19.XXXA Unspecified fall, initial encounter
CPT/HCPCS: 72100; 99283

== ENCOUNTER → 2021-12-20 | Outpatient (CLI) | payer OTHER, SELFPAY ==
[2021-12-20 08:53] LABS: Absolute Lymphocyte Count 2.16 X10^3/uL (0.83-4.51); Absolute Neutrophil Count 3.6 X10^3/uL (2.0-7.7); Basophil# 0.04 X10^3/uL; Basophil% 0.6 % (0-1); Eosinophil# 0.28 X10^3/uL; Eosinophils% 4.2 % (0-5); Hematocrit 44.4 % (40-54); Hemoglobin 15.4 g/dL (13.0-16.5); Lymphocyte # 2.16 X10^3/ul (0.83-4.51); Lymphocyte % 32.3 % (19-41); Mean Corp Hgb Conc 34.7 g/dL (32-36); Mean Corpuscular Hgb 29.3 pg (27.0-32.0); Mean Corpuscular Volume 84.4 fL (80-94); Mean Platelet Vol. 10.6 fl (6.2-12.0); Monocyte# 0.57 X10^3/uL; Monocyte% 8.5 % (0-10); NRBC Flagged by Analyzer 0 % (0-5); Platelet Count 208 K/mm3 (150-450); RBC Distribution Width SD 39.9 fl (35.1-43.9); Red Blood Count 5.26 M/mm3 (4.6-6.2); White Blood Count 6.7 K/mm3 (4.4-11.0)
[2021-12-20 16:27] LABS: Hemoglobin A1c 5.8 % (3.8-5.6)
[2021-12-20 16:52] LABS: AST(SGOT) 33 U/L (15-37); Alanine Aminotransfer ALT/SGPT 76 U/L (16-61); Albumin, Serum 3.7 g/dL (3.2-5.0); Alkaline Phosphatase 79 U/L (45-117); Anion Gap 5 (5-15); BUN 21 mg/dL (7-18); BUN/Creat Ratio 18.6 RATIO (10-20); Calcium,Total 8.8 mg/dL (8.5-10.1); Chloride 108 mmol/L (98-107); Cholesterol 257 mg/dL (200); Creatinine, Serum 1.13 mg/dL (0.70-1.30); EST Glomerular Filtration Rate 75 mL/min (>60); Est Glom Filt Rate - Afr Amer 91 mL/min (>60); Globulin 3.6 g/dL (2.2-4.2); Glucose 106 mg/dL (74-106); High Density Lipoprotein 41 mg/dL; PSA,Total - Annual Screen 0.14 ng/mL (0.00-4.00); Potassium 4.3 mmol/L (3.5-5.1); Protein, Total 7.3 g/dL (6.4-8.2); Sodium Level 139 mmol/L (136-145); Triglycerides 259 mg/dL; Very Low Density Lipoprotein 52 mg/dL (5-40)
== END | disposition home or self-care (01) ==
LOC: LAB 08:30
PROVIDERS: PCP Internal Medicine; Referring Provider Internal Medicine; Visit Provider Internal Medicine
DX: E78.1 Pure hyperglyceridemia (principal); E78.00 Pure hypercholesterolemia, unspecified; Z12.5 Encounter for screening for malignant neoplasm of prostate
CPT/HCPCS: 36415; 80053; 80061; 83036; 84153; 85025; G0103

== ENCOUNTER → 2022-01-08 | Outpatient (CLI) | payer OTHER, SELFPAY ==
[2022-01-08 16:57] LABS: Vitamin D,25 Hydroxy 15.5 ng/mL
[2022-01-08 17:02] LABS: Free T3 2.9 pg/mL (2.18-3.98); Thyroid Stim Hormone (TSH) 3.76 uIU/mL (0.358-3.74)
[2022-01-17 17:06] LABS: Testosterone, Free 10.85 ng/dL (5.00-21.00)
[2022-01-18 10:36] LABS: Testosterone, % Free 3.11 % (1.50-4.20); Testosterone, Total 349 ng/dL (264-916)
== END | disposition home or self-care (01) ==
PROVIDERS: PCP Internal Medicine; Referring Provider Internal Medicine; Visit Provider Internal Medicine
DX: E55.9 Vitamin D deficiency, unspecified (principal); G47.30 Sleep apnea, unspecified; R68.82 Decreased libido
CPT/HCPCS: 36415; 82306; 84402; 84403; 84439; 84443; 84481

== ENCOUNTER → 2022-02-11 | Outpatient (CLI) | payer OTHER, SELFPAY ==
--- NOTE | 2022-02-11 17:02 | MRI_ITS ---
INDICATION: head/neck pressure, headaches EXAMINATION: MRI - MR Brain WO/W Contrast TECHNIQUE: Multiplanar and multisequence MR images of the brain were obtained without and with gadolinium. IV Contrast Dosage and Agent: None. COMPARISON: October 13, 2019. FINDINGS: BRAIN PARENCHYMA: On the gradient echo weighted imaging sequence, there is low signal within the inferior frontal lobes bilaterally more pronounced on the left. If the patient has had prior trauma this could represent sequela of chronic hemorrhagic contusions. This also could be artifactual however the finding is unchanged since prior exam No evidence of acute infarct. No intracranial mass or mass effect. There is preservation of the granger/white matter interface. Normal sella turcica, pituitary gland, infundibular stalk, optic chiasm and hypothalamus. Posterior fossa structures are unremarkable. INTERNAL AUDITORY CANALS: The internal auditory canals are well visualized and patent. No mass identified. CSF SPACES: Appropriate for age. No hydrocephalus. Basal cisterns are patent. VASCULAR SYSTEM: Normal flow voids in the major intracranial circulation. CALVARIUM, SKULL BASE, PARANASAL SINUSES AND MASTOID AIR CELLS: Clear. No expansile changes. Artifact arising from the scalp in the right frontal region possibly due to metal in the skin. ORBITS: Both globes, extraocular muscles, optic nerves and retrobulbar fat appear unremarkable. MRI/Brain W/WO Contrast IMPRESSION: Question old posttraumatic hemorrhagic contusions in the inferior frontal lobes slightly more pronounced on the left possibly artifact although this is also noted on prior exam in September 2019. Clinical correlation is recommended as to significance Otherwise normal MRI of the brain and Interal Auditory Canals. Electronically Signed: Kofi Jones MD at 19:37 EST ,
--- NOTE | 2022-02-11 17:38 | MRI_ITS ---
INDICATION: neck pain, headaches EXAMINATION: MRI - MR Spine Cervical W/O Contrast TECHNIQUE: Multiplanar and multisequence MR images of the cervical spine were performed. IV Contrast Dosage and Agent: None. COMPARISON: None. FINDINGS: VERTEBRAE: Normal vertebral bodies and posterior elements. VERTEBRAL ALIGNMENT: Normal, including the craniocervical junction and cervicothoracic junction. No spondylolisthesis. There is preservation of the normal cervical lordosis. CERVICAL SPINAL CORD: Unremarkable in signal and morphology. C2/C3: Normal disc height and morphology. Normal spinal canal and neuroforamina. C3/C4: Normal disc height and morphology. Normal spinal canal and neuroforamina. C4/C5: Normal disc height and morphology. Normal spinal canal and neuroforamina. C5/C6: Normal disc height and mild bulging disc osteophyte complex. Mild narrowing of the central canal and mild to moderate bilateral neural foraminal stenosis secondary to disc disease and bony hypertrophy C6/C7: Normal disc height and minimal annular bulge. Normal spinal canal and neuroforamina. C7/T1: Normal disc height and morphology. Normal spinal canal and neuroforamina. NECK SOFT TISSUES: No prevertebral soft tissue swelling. There is no cervical adenopathy. MRI/Spine Cervical (Routine) IMPRESSION: No acute fracture or other significant bony pathology Spinal stenosis at C5-6 secondary to mild bulging disc osteophyte complex. Minimal annular bulge at C6-7 without spinal stenosis Electronically Signed: Kofi Jones MD at 19:27 EST ,
== END | disposition home or self-care (01) ==
LOC: MRI 17:02
PROVIDERS: PCP Internal Medicine; Visit Provider Orthopaedic Surgery
DX: M54.2 Cervicalgia (principal)
CPT/HCPCS: 70553; 72141; A9575

== ENCOUNTER → 2022-03-04 | Outpatient (CLI) | payer OTHER, SELFPAY | END | disposition home or self-care (01) | LOC: SL 16:22 | PROVIDERS: PCP Internal Medicine; Visit Provider Nurse Practitioner Acute Care | DX: Z00.00 Encounter for general adult medical examination without abnormal findings (principal) ==

== ENCOUNTER → 2022-07-25 | Outpatient (CLI) | payer OTHER, SELFPAY ==
[2022-07-25 09:48] LABS: Absolute Lymphocyte Count 1.88 X10^3/uL (0.83-4.51); Absolute Neutrophil Count 2.9 X10^3/uL (2.0-7.7); Basophil# 0.04 X10^3/uL; Basophil% 0.7 % (0-1); Eosinophil# 0.25 X10^3/uL; Eosinophils% 4.5 % (0-5); Hematocrit 45.5 % (40-54); Hemoglobin 15.6 g/dL (13.0-16.5); Lymphocyte # 1.88 X10^3/ul (0.83-4.51); Lymphocyte % 33.6 % (19-41); Mean Corp Hgb Conc 34.3 g/dL (32-36); Mean Corpuscular Hgb 28.6 pg (27.0-32.0); Mean Corpuscular Volume 83.5 fL (80-94); Mean Platelet Vol. 10.8 fl (6.2-12.0); Monocyte# 0.47 X10^3/uL; Monocyte% 8.4 % (0-10); NRBC Flagged by Analyzer 0 % (0-5); Neutrophil # 2.92 X10^3/uL (2.7-7.7); Neutrophil % 52.3 % (47-70); Platelet Count 221 K/mm3 (150-450); RBC Distribution Width CV 12.7 % (11.6-14.6); RBC Distribution Width SD 38.3 fl (35.1-43.9); Red Blood Count 5.45 M/mm3 (4.6-6.2); White Blood Count 5.6 K/mm3 (4.4-11.0)
[2022-07-25 10:01] LABS: Hemoglobin A1c 5.6 % (3.8-5.6)
[2022-07-25 10:19] LABS: ALB/GLOB Ratio 1.1 RATIO (0.9-2.4); AST(SGOT) 22 U/L (15-37); Alanine Aminotransfer ALT/SGPT 47 U/L (16-61); Albumin, Serum 3.9 g/dL (3.2-5.0); Alkaline Phosphatase 75 U/L (45-117); Anion Gap 9 (5-15); BUN 19 mg/dL (7-18); BUN/Creat Ratio 17.6 RATIO (10-20); Calcium,Total 9.1 mg/dL (8.5-10.1); Chloride 107 mmol/L (98-107); Cholesterol 269 mg/dL (200); Creatinine, Serum 1.08 mg/dL (0.70-1.30); EST Glomerular Filtration Rate 79 mL/min (>60); Est Glom Filt Rate - Afr Amer 95 mL/min (>60); Globulin 3.7 g/dL (2.2-4.2); Glucose 102 mg/dL (74-106); High Density Lipoprotein 41 mg/dL; Potassium 3.9 mmol/L (3.5-5.1); Protein, Total 7.6 g/dL (6.4-8.2); Sodium Level 141 mmol/L (136-145); Triglycerides 256 mg/dL; Very Low Density Lipoprotein 51 mg/dL (5-40)
[2022-07-27 08:22] LABS: Insulin 15.5 mU/L (2.6-37.6)
== END | disposition home or self-care (01) ==
LOC: LAB 09:08
PROVIDERS: PCP Internal Medicine; Referring Provider Internal Medicine; Visit Provider Internal Medicine
DX: Z13.220 Encounter for screening for lipoid disorders (principal); E78.00 Pure hypercholesterolemia, unspecified; E78.1 Pure hyperglyceridemia; G47.33 Obstructive sleep apnea (adult) (pediatric); R73.09 Other abnormal glucose
CPT/HCPCS: 36415; 80053; 80061; 83036; 83525; 85025

== ENCOUNTER 2022-09-21 22:06 | Emergency (ER) | payer OTHER, SELFPAY ==
[2022-09-21 22:08] VITALS: BP 136/94; PULSE 82; RESP 18; TEMP 36.3; O2SAT 96; BMI 27.8
[2022-09-22] MEDS: 0.9% Normal Saline 1,000 ML 999 ML IV (00:01)
[2022-09-22] MEDS: Ketorolac 30 MG/ML Syringe IV (00:01)
[2022-09-22] MEDS: DiphenhydrAMINE 50 MG/ML Syringe IV (00:01)
--- NOTE | 2022-09-22 00:54 | EDS_ITS ---
HPI History of Present Illness Chief Complaint: Headache Informant: patient and spouse/S.O. Narrative Narrative: Patient is a 46-year-old male with past medical history of cervical degeneration obstructive sleep apnea and headaches. He states that roughly 1 year ago he underwent an MRI secondary to his recurrent headaches. He states that he was never given a reason for his headaches. He states that today he developed a headache described as a sense of pressure and fullness which is typical for him but then he checked his blood pressure and folic it was elevated which is not normal and with this comes in for evaluation. Patient denies any excessive stim ulant or illicit drug use. He denies any chest pain or shortness of breath or abdominal pain associated with this [facility] Medical History High cholesterol Migraines Seasonal allergies Home Medications finasteride 1 mg tablet 1 mg PO DAILY 05/12/21 [History Last Taken Unknown] cholecalciferol (vitamin D3) 25 mcg (1,000 unit) capsule 25 mcg PO DAILY 01/14/22 [History Last Taken Unknown] Allergy/AdvReac Type Severity Reaction Status Date / Time Seasonal Allergies: Uncoded Allergy Unknown NEEDS Verified 09/21/22 22:07 FOLLOW-UP citalopram [From Celexa] Allergy Rash Verified 09/21/22 22:07 Family History Father Diabetes Myocardial infarction, Onset Age: 80 Mother Hyperlipemia Surgical History History of rotator cuff surgery History of shoulder surgery Social History Smoking Status: Never smoker alcohol intake: never substance use type: does not use what type of physical activity do you participate in: running and weight paige martin frequency: 5-6 times per week ROS ROS ED Constitutional Constitutional ED: Denies chills or fever(s) Eyes Eyes: Reports other Details: Positive photophobia ENT ENT ED: Denies sore throat Cardiovascular Cardiovascular: Denies chest pain Respiratory/Chest Respiratory/Chest: Denies cough or dyspnea Gastrointestinal Gastrointestinal: Denies abdominal pain, diarrhea, nausea or vomiting Genitourinary Genitourinary ED: Denies dysuria Musculoskeletal Musculoskeletal: Denies myalgias Integumentary Denies rash Neurologic Neurologic: Reports headache(s); Denies paresthesias or weakness Hematologic/Lymphatic Hematologic/Lymphatic: Denies easy bleeding or easy bruising EXAM Physical Exam Const Vital Signs: 09/21/22 22:08 Temperature 97.3 F L Temperature Source Temporal Pulse Rate 82 Respiratory Rate 18 Blood Pressure 136/94 H Blood Pressure Mean 108 Pulse Ox 96 Oxygen Delivery Method Room Air Positive well nourished and well developed General Appearance ED: well developed HEENT Reports moist mucous membranes HEENT Narrative: Normocephalic atraumatic No increased pain with palpation over top of the ethmoid frontal or maxillary sinuses Eyes PERRL and EOMs intact bilaterally General Eye ED: Negative for scleral icterus Neck supple Neck Narrative: No nuchal rigidity or meningeal signs noted Resp normal respiratory effort and clear to auscultation bilaterally Cardio regular rate and regular rhythm Rate: other Other Details: Radial and carotid pulses are equal and symmetric GI normal to inspection, nondistended, normoactive bowel sounds, non-tender, non- distended and no masses GI Narrative: No pulsatile mass or fluid wave noted Auscultation: normoactive bowel sounds Palpation: soft Extremity normal to inspection Neuro oriented x3, CN's II-XII intact bilaterally and no sensory deficits noted Neuro Narrative: Cranial nerves II through XII are grossly intact there are no focal neurologic deficits. No pronator drift no dysmetria no truncal ataxia. NIH stroke scale score of 0 Sensorium / Orientation: alert Motor Exam: strength 5/5 throughout Psych mental status grossly normal Skin no rashes or lesions noted MDM MDM MDM Narrative Medical decision making narrative: Patient presented to the ER with stable vitals and a normal neurologic exam. He has a standing history of migraine headache and had an MRI in the past secondary to this which reportedly normal. The MRI result from 2021 was reviewed and confirmed to have no acute abnormality present. The patient's blood pressure u tan arrival was just slightly elevated at 136/94 which is not clinically significant and as he does not have chest pain abdominal pain or shortness of breath concern for endorgan damage is low and I do not feel there is need for laboratory studies. It was felt that the patient's headache was driving the mildly elevated blood pressure and therefore the headache was treated with IV fluids Benadryl and Toradol. On reevaluation the neuro exam remains normal and patient reports resolution of his headache. Therefore at this time as patient's had a previous MRI with no acute findings his neuro exam is normal at this time and his physical exam does not suggest an infectious component as a cause of his headache as well as the fact that it is resolved with treatment there is no need for further evaluation and he is otherwise safe for discharge History & Record Review Discussion w/independent historian: Patient and Significant other Discharge Plan Triage Chief Complaint: Headache ED Provider: Clarence Prasad Dx/Rx/DC Orders Clinical Impression: Cephalgia, SG (obstructive sleep apnea) Instructions: ED Headache Unspecified Prescriptions: No Action cholecalciferol (vitamin D3) 25 mcg (1,000 unit) capsule 25 mcg PO DAILY finasteride 1 mg tablet 1 mg PO DAILY Patient Comments: TAKE 1 TABLET BY MOUTH EVERY DAY Primary Care Provider: Connie Ortega Referrals: Connie Ortega MD [Primary Care Provider] - Steve Dumont MD [Non-Staff -Ordering Privileges] - Activity Restrictions/Additional Instructions: Please follow-up with neurology for repeat evaluation of your recurrent headaches. If you have any further concerns or worsening of symptoms please return to the ER for repeat evaluation Disposition Disposition: Home, Self Care Discharge Date/Time: 09/22/22 01:06
== END 2022-09-22 01:06 | disposition home or self-care (01) ==
PROVIDERS: Emergency Provider Emergency Medicine; PCP Internal Medicine; Visit Provider Emergency Medicine
DX: R51.9 Headache, unspecified (principal); G47.33 Obstructive sleep apnea (adult) (pediatric); E78.00 Pure hypercholesterolemia, unspecified
CPT/HCPCS: 96361; 96374; 96375; 99283; J7030

== ENCOUNTER → 2023-01-30 | Outpatient (CLI) | payer OTHER, SELFPAY ==
[2023-01-30 09:17] LABS: Hemoglobin A1c 5.7 % (3.8-5.6)
[2023-01-30 09:27] LABS: ALB/GLOB Ratio 1.1 RATIO (0.9-2.4); AST(SGOT) 19 U/L (15-37); Alanine Aminotransfer ALT/SGPT 41 U/L (16-61); Albumin, Serum 3.8 g/dL (3.2-5.0); Alkaline Phosphatase 82 U/L (45-117); Anion Gap 1 (5-15); BUN 15 mg/dL (7-18); BUN/Creat Ratio 15.3 RATIO (10-20); Calcium,Total 9.1 mg/dL (8.5-10.1); Chloride 110 mmol/L (98-107); Cholesterol 248 mg/dL (200); Creatinine, Serum 0.98 mg/dL (0.70-1.30); EST Glomerular Filtration Rate 88 mL/min (>60); Est Glom Filt Rate - Afr Amer 106 mL/min (>60); Globulin 3.6 g/dL (2.2-4.2); Glucose 105 mg/dL (74-106); High Density Lipoprotein 38 mg/dL; Potassium 3.7 mmol/L (3.5-5.1); Protein, Total 7.4 g/dL (6.4-8.2); Sodium Level 139 mmol/L (136-145); Triglycerides 249 mg/dL; Very Low Density Lipoprotein 50 mg/dL (5-40)
[2023-02-01 08:52] LABS: Vitamin D,25 Hydroxy 30.6 ng/mL
== END | disposition home or self-care (01) ==
LOC: LAB 08:12
PROVIDERS: PCP Internal Medicine; Referring Provider Internal Medicine; Visit Provider Internal Medicine
DX: E88.818 Other insulin resistance (principal); R73.09 Other abnormal glucose; G47.33 Obstructive sleep apnea (adult) (pediatric); E78.1 Pure hyperglyceridemia; J30.2 Other seasonal allergic rhinitis; Z13.220 Encounter for screening for lipoid disorders; E55.9 Vitamin D deficiency, unspecified
CPT/HCPCS: 36415; 80053; 80061; 82306; 83036

== ENCOUNTER → 2023-10-23 | Outpatient (CLI) | payer OTHER, SELFPAY ==
[2023-10-23 08:19] LABS: Absolute Lymphocyte Count 2.25 X10^3/uL (0.83-4.51); Absolute Neutrophil Count 3.3 X10^3/uL (2.0-7.7); Basophil# 0.05 X10^3/uL; Basophil% 0.8 % (0-1); Eosinophil# 0.32 X10^3/uL; Eosinophils% 4.8 % (0-5); Hematocrit 44.9 % (40-54); Hemoglobin 15.4 g/dL (13.0-16.5); Lymphocyte # 2.25 X10^3/ul (0.83-4.51); Mean Corp Hgb Conc 34.3 g/dL (32-36); Mean Corpuscular Hgb 28.4 pg (27.0-32.0); Mean Corpuscular Volume 82.8 fL (80-94); Mean Platelet Vol. 10.9 fl (6.2-12.0); Monocyte# 0.62 X10^3/uL; Monocyte% 9.4 % (0-10); NRBC Flagged by Analyzer 0 % (0-5); Neutrophil # 3.34 X10^3/uL (2.7-7.7); Neutrophil % 50.4 % (47-70); Platelet Count 220 K/mm3 (150-450); RBC Distribution Width SD 39.1 fl (35.1-43.9); Red Blood Count 5.42 M/mm3 (4.6-6.2); White Blood Count 6.6 K/mm3 (4.4-11.0)
[2023-10-23 09:17] LABS: ALB/GLOB Ratio 0.9 RATIO (0.9-2.4); AST(SGOT) 42 U/L (15-37); Alanine Aminotransfer ALT/SGPT 82 U/L (16-61); Albumin, Serum 3.6 g/dL (3.2-5.0); Alkaline Phosphatase 84 U/L (45-117); Anion Gap 7 (5-15); BUN 17 mg/dL (7-18); BUN/Creat Ratio 15.9 RATIO (10-20); Calcium,Total 8.9 mg/dL (8.5-10.1); Chloride 109 mmol/L (98-107); Cholesterol 254 mg/dL (200); Creatinine, Serum 1.07 mg/dL (0.70-1.30); EST Glomerular Filtration Rate 79 mL/min (>60); Est Glom Filt Rate - Afr Amer 96 mL/min (>60); Globulin 3.9 g/dL (2.2-4.2); Glucose 109 mg/dL (74-106); High Density Lipoprotein 39 mg/dL; PSA,Total - Annual Screen 0.29 ng/mL (0.00-4.00); Potassium 3.7 mmol/L (3.5-5.1); Protein, Total 7.5 g/dL (6.4-8.2); Sodium Level 140 mmol/L (136-145); Triglycerides 433 mg/dL
[2023-10-23 09:37] LABS: Hemoglobin A1c 5.8 % (3.8-5.6)
[2023-10-26 07:43] LABS: Vitamin D,25 Hydroxy 21.2 ng/mL
[2023-10-26 13:07] LABS: Insulin Level 16.5 uIU/mL (2.6-24.9)
== END | disposition home or self-care (01) ==
LOC: LAB 07:58
PROVIDERS: PCP Internal Medicine; Referring Provider Internal Medicine; Visit Provider Internal Medicine
DX: E88.810 Metabolic syndrome (principal); E55.9 Vitamin D deficiency, unspecified; E78.00 Pure hypercholesterolemia, unspecified; E78.1 Pure hyperglyceridemia; G47.30 Sleep apnea, unspecified; Z12.5 Encounter for screening for malignant neoplasm of prostate; R73.9 Hyperglycemia, unspecified
CPT/HCPCS: 36415; 80053; 80061; 82306; 83036; 83525; 84153; 84443; 85025; G0103

== ENCOUNTER → 2024-01-19 | Outpatient (CLI) | payer OTHER, SELFPAY ==
--- NOTE | 2024-01-19 15:15 | MRI_ITS ---
EXAM: MR CERVICAL SPINE WITHOUT INTRAVENOUS CONTRAST CLINICAL INDICATION: SPINAL STENOSIS, neck pain, previous MRI and xrays TECHNIQUE: Multiplanar and multisequence MR images of the cervical spine without intravenous contrast were performed. COMPARISON: MR Cervical Spine dated 02/11/2022 FINDINGS: VERTEBRAE: Partial loss of the normal cervical lordosis. Mild superior endplate deformity of the C7 vertebral body. Otherwise normal vertebral body height. No bone marrow edema. Normal craniocervical junction and cervicothoracic junction. No spondylolisthesis. SPINAL CORD: Unremarkable in signal and morphology. SOFT TISSUES: Normal. No prevertebral soft tissue swelling. LYMPH NODES: Normal. There is no cervical adenopathy. DISCS/SPINAL CANAL/NEURAL FORAMINA: C2-C3: Normal. Normal disc height and morphology. Normal spinal canal. Normal neuroforamina. C3-C4: Normal. Normal disc height and morphology. Normal spinal canal. Normal neuroforamina. C4-C5: Normal. Normal disc height and morphology. Normal spinal canal. Normal neuroforamina. C5-C6: C5-6: Mild disc space narrowing. Broad-based disc protrusion causes mild spinal stenosis. Mild narrowing of the neural foramina related to uncinate joint hypertrophy. C6-C7: Normal disc height and morphology. Stable mild disc bulging. Normal spinal canal. Normal neuroforamina. C7-T1: Normal. Normal disc height and morphology. Normal spinal canal. Normal neuroforamina. MRI/Spine Cervical (Routine) IMPRESSION: C5-6 spondylosis resulting in mild spinal and neural foraminal stenosis as described. No interval change. Electronically Signed: Manpreet Pal MD at 16:13 EST ,
== END | disposition home or self-care (01) ==
LOC: MRI 15:14
PROVIDERS: PCP Internal Medicine; Referring Provider Anesthesiology Pain Medicine; Visit Provider Anesthesiology Pain Medicine
DX: M48.02 Spinal stenosis, cervical region (principal)
CPT/HCPCS: 72141

== ENCOUNTER → 2024-08-05 | Outpatient (CLI) | payer OTHER, SELFPAY ==
--- OUTSIDE RECORDS SUMMARY | 2024-08-05 08:06 | XMS RPT_ITS | CCD ---
Author Organization [facility] Care Team Providers Care Wirer Passenger Car Name Role Phone Dr. Brayden Leon Referring Provider Dr. Connie Ortega Primary Care Provider Dr. Connie Ortega Attending Provider [phone] Dr. Connie Ortega Primary Care Provider Dr. Connie Ortega Attending Provider [phone] Dr. Connie Ortega Referring Provider [phone] Dr. Miki Vu Attending Provider Dr. Keo Pritchett Attending Provider Cristobal Chery Attending Provider Unavailable Salazar YO, SRINATH-C Mary Attending Provider Dr. Connie Ortega Primary Care Provider Dr. Connie Ortega Attending Provider Dr. Connie Ortega Primary Care Provider Dr. Connie Ortega Attending Provider Vick Mccoy Unavailable AMADEO PATEL Attending Unavailable Connie Ortega Attending Unavailable Connie Ortega Primary Care Unavailable Amadeo Patel Referring Unavailable Amadeo Patel Attending Unavailable Connie Ortega Primary Care Unavailable Connie Ortega Referring Unavailable Connie Ortega Attending Unavailable Connie Ortega Primary Care Unavailable Connie Ortega Attending Unavailable Connie Ortega Primary Care Unavailable Connie Ortega Primary Care Unavailable Connie Ortega Referring Unavailable Stan Sandoval Attending Unavailable Allergies Allergy Classification Reported Allergen(s) Allergy Type Date of Onset Reaction(s) Facility (15 sources) Citalopram; Translations: [CITALOPRAM] Drug Allergy 1 Rash [facility] (3 sources) Seasonal allergy Allergy to substance 2 Unknown [facility] Work Phone: (8 sources) Seasonal Allergies: Uncoded; Translations: [Seasonal Allergies: Uncoded] Allergy to substance 2 NEEDS FOLLOW-UP [facility] (4 sources) environmental [Other] Propensity to adverse reactions 7 [facility] (1 source) OTHER; Translations: [OTHER] Propensity to adverse reactions (disorder) 7 [facility] (1 source) Citalopram Drug Allergy 5 [facility] Medications Current Medications Medication Drug Class(es) Dates Sig (Normalized) Sig (Original) amitriptyline hydrochloride 50 mg oral tablet (4 sources) Tricyclic Antidepressant Start: 7 take 1 tablet by mouth once daily at bedtime amitriptyline 50 mg ORAL Tab Indications: Tension headache Take one(1) tablet daily at bedtime. 30 1 07/23/2006 Active Comment on above: Take one(1) tablet d aily at bedtime. cholecalciferol 0.025 mg oral capsule (5 sources) Vitamin D Start: 2 take 25 ug by mouth once daily Cholecalciferol (Vitamin D3) Active 25 MCG PO DAILY January 14, 2022 12:00am finasteride 1 mg oral tablet (10 sources) 5-alpha Reductase Inhibitor Start: 2 take 1 mg by mouth once daily Finasteride Active 1 MG PO DAILY May 11, 2021 11:00pm isoniazid 300 mg oral tablet (4 sources) Antimycobacterial Start: 7 take 1 tablet by mouth once daily isoniazid 300 mg ORAL Tab Take one(1) tablet daily. 30 8 10/26/2006 Active Comment on above: Take one(1) tablet d aily. mometasone furoate 0.05 mg/actuat metered dose nasal spray (4 sources) Corticosteroid Start: 8 take 2 spray(s) nasal route once daily mometasone furoate(NASONEX 50 MCG/ACTUATION SPRAY) TWO SPRAYS EACH NOSTRIL DAILY 1 2 10/28/2007 Active Comment on above: TWO SPRAYS EACH NOST RIL DAILY Completed/Discontinued Medications Medication Drug Class(es) Dates Sig (Normalized) Sig (Original) amoxicillin 875 mg / clavulanate 125 mg oral tablet (10 sources) Penicillin-class Antibacterial Start: 1 End: 1 take 1 tablet by mouth every twelve hours Amoxicillin-Pot Clavulanate (Augmentin) 875-125 mg tablet Discontinued 1 TABLET PO Q12H 20 March 19, 2020 12:00am March 29, 2020 12:03am atorvastatin 20 mg oral tablet (18 sources) HMG-CoA Reductase Inhibitor Start: 1 End: 3 take 20 mg by mouth at bedtime Atorvastatin Discontinued 20 MG PO AT BEDTIME July 15, 2021 3:20pm March 30, 2022 12:53pm cetirizine hydrochloride 10 mg oral tablet (10 sources) Histamine-1 Receptor Antagonist Start: 0 End: 0 take 10 mg by mouth once daily Cetirizine Discontinued 10 MG PO DAILY September 14, 2019 11:00pm October 12, 2019 2:11pm cyclobenzaprine hydrochloride 10 mg oral tablet (7 sources) Muscle Relaxant Start: 2 End: 3 take 10 mg by mouth twice daily Cyclobenzaprine Discontinued 10 MG PO TWICE A DAY November 29, 2021 11:00pm March 30, 2022 12:53pm dextromethorphan hydrobromide 2 mg/ml / guaiFENesin 20 mg/ml oral solution (3 sources) Uncompetitive D-dxpygt-N-aspartat e Receptor Antagonist, Sigma-1 Agonist Start: 3 End: 3 take 1 mL by mouth every four hours Dextromethorphan-Gua ifenesin Discontinued 10 ML PO Q4H 200 March 30, 2022 12:00am September 21, 2022 11:07pm fenofibrate 145 mg oral tablet (10 sources) Peroxisome Proliferator Receptor alpha Agonist Start: 1 End: 2 take 145 mg by mouth once daily Fenofibrate Nanocrystallized Discontinued 145 MG PO DAILY October 16, 2020 11:00pm June 04, 2021 2:32pm fluticasone propionate 0.05 mg/actuat metered dose nasal spray (10 sources) Corticosteroid Start: 0 End: 0 Fluticasone Propionate Discontinued 2 SPRAY NASAL DAILY 1 September 14, 2019 11:00pm October 12, 2019 2:11pm lisinopril 20 mg oral tablet (10 sources) Angiotensin Converting Enzyme Inhibitor Start: 1 End: 1 take 20 mg by mouth once daily Lisinopril Discontinued 20 MG PO DAILY April 28, 2020 12:00am October 30, 2020 2:40pm minoxidil 2.5 mg oral tablet (3 sources) Arteriolar Vasodilator Start: 3 End: 3 take 2.5 mg by mouth once daily Minoxidil Discontinued 2.5 MG PO DAILY July 29, 2022 11:00pm September 21, 2022 11:07pm naproxen 500 mg oral tablet (7 sources) Nonsteroidal Anti-inflammatory Drug Start: 2 End: 3 take 1 tablet by mouth twice daily Naproxen (Naprosyn) 500 mg tablet Discontinued 500 MG PO TWICE A DAY November 29, 2021 11:00pm March 30, 2022 12:54pm polymyxin b [id number] unt/ml / trimethoprim 1 mg/ml ophthalmic solution (7 sources) Dihydrofolate Reductase Inhibitor Antibacterial, Polymyxin-class Antibacterial Start: 2 End: 3 Polymyxin B Sulf-Trimethoprim Discontinued 1 DRP LEFT EYE EVERY 4 HOURS NEEDED 11 28November 30, 2021 5:15pm March 30, 2022 12:54pm while awake; do not exceed 6 doses in 24 hours Problems Active Problems Problem Classification Problem Date Documented Da te Episodic/Chronic Diabetes mellitus without complication (5 sources) High hemoglobin A1c level; Translations: [Other abnormal glucose] 03-30-2022 Episodic Disorders of lipid metabolism (20 sources) Familial hypertriglyceridemia ; 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 E Codes: Fall (7 sources) Fall; Translations: [Unspecified fall, initial encounter] 12-08-2021 Episodic Headache; including migraine (4 sources) Tension-type headache; Translations: [Tension-type headache, unspecified, not intractable] Onset: 05-05-2006 05-05-2006 Chronic Headache; including migraine (20 sources) Headache; Translations: [Headache] Episodic Inflammation; infection of eye (except that caused by tuberculosis or sexually transmitteddisease) (7 sources) Conjunctivitis; Translations: [Unspecified conjunctivitis] 12-08-2021 Episodic Nutritional deficiencies (9 sources) Vitamin D deficiency; Translations: [Vitamin D deficiency, unspecified] Chronic Other bone disease and musculoskeletal deformities (20 sources) Segmental and somatic dysfunction; Translations: [Segmental and somatic dysfunction of cervical region] 10-05-2019 Episodic Other bone disease and musculoskeletal deformities (3 sources) Segmental and somatic dysfunction of cervical region; Translations: [Nonallopathic lesions, cervical region] Episodic Other connective tissue disease (1 source) Myofascial pain syndrome of neck; Translations: [Myalgia, other site] 11-15-2023 Episodic Other ear and sense organ disorders (10 sources) Tinnitus; Translations: [Tinnitus, unspecified ear] 03-19-2020 Episodic Other ear and sense organ disorders (3 sources) Tinnitus, unspecified ear; Translations: [Tinnitus, unspecified] Episodic Other nutritional; endocrine; and metabolic disorders (3 sources) Insulin resistance; Translations: [Metabolic syndrome] 03-30-2022 Chronic Other nutritional; endocrine; and metabolic disorders (3 sources) Metabolic syndrome; Translations: [Dysmetabolic syndrome X] Onset: 10-26-2023 07-30-2022 Chronic Other upper respiratory disease (10 sources) Seasonal allergy; Translations: [Other seasonal allergic rhinitis] 10-17-2020 Chronic Other upper respiratory disease (2 sources) Other seasonal allergic rhinitis; Translations: [Allergic rhinitis, cause unspecified] 07-30-2022 Chronic Otitis media and related conditions (10 sources) Acute secretory otitis media; Translations: [Other acute nonsuppurative otitis media, right ear] 03-19-2020 Episodic Residual codes; unclassified (8 sources) Sleep apnea; Translations: [Sleep apnea, unspecified] 06-04-2021 Chronic Residual codes; unclassified (4 sources) Sleep apnea, unspecified; Translations: [Unspecified sleep apnea] Chronic Residual codes; unclassified (5 sources) Obstructive sleep apnea syndrome; Translations: [Obstructive sleep apnea (adult) (pediatric)] 01-14-2022 Chronic Residual codes; unclassified (4 sources) Obstructive sleep apnea (adult) (pediatric); Translations: [Obstructive sleep apnea (adult)(pediatric)] Chronic Residual codes; unclassified (6 sources) Reduced libido; Translations: [Decreased libido] 12-25-2021 Episodic Residual codes; unclassified (3 sources) Decreased libido; Translations: [Decreased libido] Episodic Spondylosis; intervertebral disc disorders; other back problems (10 sources) Herniation of nucleus pulposus; Translations: [Other cervical disc displacement, unspecified cervical region] Chronic Superficial injury; contusion (7 sources) Contusion of lower back; Translations: [Contusion of lower back and pelvis, initial encounter] 12-08-2021 Episodic Viral infection (3 sources) Disease caused by 2019-nCoV; Translations: [COVID-19] 03-30-2022 Episodic Past or Other Problems Problem Classification Problem Date Documented Da te Episodic/Chronic Spondylosis; intervertebral disc disorders; other back problems (16 sources) Neck pain; Translations: [Cervicalgia] Onset: 05-05-2006 10-05-2019 Episodic Results Test Name Value Interpretation Reference Range Facility Urgent Care Visit Reporton 0 05-22-2024 Urgent Care Visit Report [facility] [address], [address] [place] [address] OFFICE VISIT Date of Service: 05/22/24 MR#: [id number] Acct: [id number] Name: ZAK HELM Rep #: [id number] : 1975 Provider: DEANNA Naqvi Age/Sex: 48/M Location: [facility] [place] Status: Signed Intake Vital Signs 10/28/23 15:55 05/22/24 16:05 Height 5 ft 8 in 5 ft 8 in Weight: 187 lb 8 oz 189 lb 2 oz BMI 28.5 28.8 BP 152/92 H 120/60 Blood Pressure Location Lt brachial Position Sitting Sitting Respiration 16 Pulse 105 H 75 Pulse Source Monitor Temp 98.6 F 98.1 F Temp Source Temporal Oral Pulse Oximetry (%) 96 97 Oxygen Delivery Method room air room air Intake Visit Reasons: TINNITUS/ HEADACHE Accompanied by: Self Allergies Seasonal Allergies: Uncoded Allergy (Unknown, Verified 05/22/24 16:05) NEEDS FOLLOW-UP citalopram (From Celexa) Allergy (Verified 05/22/24 16:05) Rash Medications ???Medication ???Instructions ???Recorded ???Confirmed ???Type NK 05/22/24 05/22/24 History Nurse's Note: Patient has a Headache and ringing in his ears. Patient states the last 3-4 days he has had pressure in his head and blur vision and his ringing in his ears are worse. Patient states he has a heart burn feeling. No chest discomfort or SOB. Patient been taking his BP at home and it been anywhere from 140-145 to 90-95 on average. [facility] Medical History (Updated 05/22/24 @ 16:37 by Stan HUERTA, PA) Dizziness History of snoring Elevated TSH Seasonal allergies Migraines High cholesterol Surgical History History of shoulder surgery History of rotator cuff surgery Family History Father Diabetes Myocardial infarction, Onset Age: 80 Mother Hyperlipemia Social History Smoking Status: Never smoker alcohol intake: never substance use type: does not use what type of physical activity do you participate in: running and weight training frequency: 5-6 times per week HPI HPI Details: ZAK HELM, is a 48 M who presents to the office today for persistent chronic headaches and dizziness and elevated blood pressure which has waxed and waned over the last 3 years plus. Patient notes he has followed up with his PCP and has had multiple test done including a polysomnogram several years ago (showing that he had borderline SG and has not been treated for as a result), and unremarkable head CT and serology. He does note that he snores at night per his even though he uses a mouthpiece in an attempt to keep his mouth open as he describes. He states if he takes a break to sit down that he can fall asleep very easily. He notes no clumsiness or frequent trip/fall, noting he has full control of his hands and feet. He notes no complaints of sinus congestion or facial pressure or postnasal drip or cough or chest pressure/shortness of breath/dyspnea on exertion. He has taken no kcuy-ibc-sovtydp products to assist with symptoms. He has no other associated symptoms and no other alleviating/aggravating factors. ROS Const Constitutional: No other (As above) Exam Const General: cooperative, healthy appearing and no acute distress Orientation: alert and awake [facility] Head: normal to inspection Ears: hearing grossly normal bilaterally, external ears normal, TM's normal bilaterally and EAC's normal Nose: external nose normal, nares normal, septum normal and no nasal discharge Face and sinus: normal facial exam, sinuses nontender and face symmetric Mouth: oral mucosae normal, lip normal, tongue normal, oropharynx normal and moist mucous membranes Throat: posterior oropharynx normal, tonsils normal (Tonsils not visible (Mallampati 4)) and uvula midline Eyes General: appearance normal, both eyes and all related structures Neck Neck: normal visual inspection, no lymphadenopathy, no meningeal signs and supple Neck mass: No Thyroid: thyroid normal Lymphatic: no lymphadenopathy noted Chest Chest palpation inspection: normal inspection of the chest Resp Effort Inspection: normal respiratory effort and able to speak in complete sentences Auscultation: Bilateral: Clear to Auscultation Cardio Palpation: normal PMI Rate: regular rate Rhythm: regular rhythm Heart Sounds: S1 normal, S2 normal, no gallops, no murmurs and no rubs Pulses: radial pulses present Skin General: no rashes or lesions noted Neuro General: patient alert and patient awake Cognition: normal cognition Speech: speech normal Psych Appearance: grossly normal Mental Status: mental status grossly normal Mood: congruent mood Affect: normal affect Speech and Movement: speech and movem (more content not included)... Normal [facility] Spine Cervical (Routine)on 03-20-2023 Spine Cervical (Routine) [facility] Imaging Services [address] [place] [id number] Spine Cervical (Routine) MR#: [id number] Acct: [id number] Name: ZAK HELM Rep #: [id number] : 1975 M 48 From: Manpreet Pal MD PCP: Dr. Connie Ortega MD Status: REG CLI Study: Spine Cervical (Routine) Date of Exam: Exam# [id number] Ordering [place]: [place] [id number] EXAM: MR CERVICAL SPINE WITHOUT INTRAVENOUS CONTRAST CLINICAL INDICATION: SPINAL STENOSIS, neck pain, previous MRI and xrays TECHNIQUE: Multiplanar and multisequence MR images of the cervical spine without intravenous contrast were performed. COMPARISON: MR Cervical Spine dated 02/11/2022 FINDINGS: VERTEBRAE: Partial loss of the normal cervical lordosis. Mild superior endplate deformity of the C7 vertebral body. Otherwise normal vertebral body height. No bone marrow edema. Normal craniocervical junction and cervicothoracic junction. No spondylolisthesis. SPINAL CORD: Unremarkable in signal and morphology. SOFT TISSUES: Normal. No prevertebral soft tissue swelling. LYMPH NODES: Normal. There is no cervical adenopathy. DISCS/SPINAL CANAL/NEURAL FORAMINA: C2-C3: Normal. Normal disc height and morphology. Normal spinal canal. Normal neuroforamina. C3-C4: Normal. Normal disc height and morphology. Normal spinal canal. Normal neuroforamina. C4-C5: Normal. Normal disc height and morphology. Normal spinal canal. Normal neuroforamina. C5-C6: C5-6: Mild disc space narrowing. Broad-based disc protrusion causes mild spinal stenosis. Mild narrowing of the neural foramina related to uncinate joint hypertrophy. C6-C7: Normal disc height and morphology. Stable mild disc bulging. Normal spinal canal. Normal neuroforamina. C7-T1: Normal. Normal disc height and morphology. Normal spinal canal. Normal neuroforamina. MRI/Spine Cervical (Routine) IMPRESSION: C5-6 spondylosis resulting in mild spinal and neural foraminal stenosis as described. No interval change. Electronically Signed: Manpreet Pal MD at 16:13 EST , CC: Dr. Connie Ortega MD; Dr. 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 [address] Amadeo Patel's patient. He ordered an MRI of my neck, and it looks like the insurance denied it. They asked me to call back and see what the office and Dr. Patel is going to do or next steps. That's why I'm calling. Please give me a call back - [phone]. Thanks. Office to await MRI denial email from Pre-Access Denials Support Team. Glenna Moses RN 12/20/2023 9:28 AM Signed Secure email sent to [facility] for MRI denial/denial rationale. Awaiting response. Glenna Moses RN 12/20/2023 11:48 AM Signed Per Pre-Access Denials Support Team: We submitted the precertification request trough [facility] and faxed clinical information (TN: [phone]). Related Referral Number: [id number] Awaiting determination. Allergies As of Date: 12/15/2023 Noted Allergy Reaction CELEXA (CITALOPRAM) 07/18/2020 2 - Rash environmental [Other] 07/23/2006 Date Reviewed: 07/18/2020 Reviewed by: Najma Ruff, ALEXIA - Fully Assessed Reason for Visit: Insurance Authorization [[id number]] Cmt: MRI Denial Prescriptions as of 12/20/2023 - mometasone furoate(NASONEX 50 MCG/ACTUATION SPRAY) TWO SPRAYS EACH NOSTRIL DAILY - isoniazid 300 mg ORAL Tab Take one(1) tablet daily. - amitriptyline 50 mg ORAL Tab Take one(1) tablet daily at bedtime. Meds Comments as of 10/26/2006: All medications have been reviewed today /10/26/2006 Karlee Patel [facility] Problem List As Of Date 12/15/2023 Noted Resolved 2.3.1 Chronic tension-type headache associated *05/05/2006 CERVICALGIA [M54.2] 05/05/2006 Encounter Status:Closed by GLENNA MOSES on 12/15/23 Normal [facility] CNOVon 11-15-2023 CNOV Office Visit (PNMDNA ) ZAK HELM Alma ([id number]) 1975 M Date Time Provider Department 11/15/23 3:30 PM AMADEO PATEL PNNA During your visit today, we recorded the following information about you: Amadeo Patel MD 12/15/2023 7:40 AM Signed [facility] Date: November 15, 2023 - 3:21 PM Zak Helm is self referred. Chief Complaint: neck pain SUBJECTIVE: Zak Helm, is a 48 year old male who presents with neck pain. The pain started 3 years ago, with no known injury or trauma. The pain onset was gradual. The patient states that the current pain is persistent. His pain is located in the bilateral posterior cervical region and does not radiate.. // The pain is described as aching, pressure, sharp, and stiff. The pain intensity is rated 8. The pain is exacerbated by movement or fatigued and relieved by medication, reposition, distractions, and massage. Currently, the symptoms do not interfere with activities of daily living (ADLs). 100% pain in spine vs 0% (radiating) pain in the extremity. Litigation: No. Worker's Compensation: No. Prior pain treatment has included: Medication(s): ibuprofen, Tylenol Physical therapy: [facility] in [place], [place] Chiropractic: Last year Acupuncture: 1 month ago with no relief. Injection(s): Cervical facet injections with Dr. Ruiz in [place] with no relief. ALLERGIES Allergen Reactions Celexa [Citalopram] Rash Environmental [Othe* Current Medications: Pain medications reviewed and reconciled in the medication list: Yes. Current Outpatient Medications Medication Sig mometasone furoate(NASONEX 50 MCG/ACTUATION SPRAY) TWO SPRAYS EACH NOSTRIL DAILY isoniazid 300 mg ORAL Tab Take one(1) tablet daily. amitriptyline 50 mg ORAL Tab Take one(1) tablet daily at bedtime. No current facility-administered medications for this visit. No past medical history on file. No past surgical history on file. FAMILY HISTORY Problem Relation Age of Onset Diabetes Father Diabetes Maternal Grandmother Hypertension Brother Social History: Alcohol Use: No Tobacco Use: Never Drug Use: No Employer And Job Title: None on file Years Of Education Completed: Not specified Marital Status: REVIEW OF SYSTEMS: Constitutional: (-) Fever (-) Night Sweats (-) Weight Gain (-) Weight Loss (-) Fatigue Cardiovascular: (-) Chest Pain (-) Palpitations (-) Lightheadedness (-) Swelling of Ankles (-) Hx Heart Surgery Respiratory: (-) Shortness of Breath (-) Cough (-) Wheezing (-) Snoring Gastrointestinal: (-) Incontinence (-) Abdominal Pain (-) Diarrhea (-) Constipation (-) Nausea/Vomiting (-) Heart Burn Endocrine: (-) Thyroid Disorder (-) Diabetes Hematologic: (-) Prolonged Bleeding (-) Easy Bruising Genitourinary: (-) Incontinence (-) Frequency (-) Urinary Urgency Skin: (-) Rashes (-) Itching (-) Other Lesions Neurologic: (+) Headache (-) Double Vision (-) Confusion (-) Paralysis (-) Vertigo (-) Syncope Psychiatric: (-) Depression (-) Anxiety (-) Delusions (-) Hallucinations (-) Suicidal Thoughts OARRS Report reviewed: Yes Narcotic Agreement reviewed and signed?: N/A Baseline Urine Toxicology obtained: N/A Urine Panel: No results found for: UQCANN, UQBNZL, WPF2SYF, UQAMPH, UQMAMP, UQBUPRE, UQNORBUP, UQMTHD, UQEDDP, UQTRAM, UQDTRM, UQFNTL, UQNFTL, UQCODE, UQMORP, UQDCDN, UQHCOD, UQOXYC, UQHMOR, UQOXYM, UQCREA, UQPH, UQSPGR, UQOXID, UQSPQ The pain panel was N/A OBJECTIVE: Performed in conjunction with observation. The patient was alert and oriented x3. The patient was in no acute distress. Lungs: Clear, negative for dyspnea or distress. CVR: Negative for SOB or peripheral edema. Neck: Supple. The range of motion was intact. Bilateral paracervical tenderness with extension to the posterior occiput area along the greater occipital nerve and upper thoracic levels. Cervical facet loading: Negative Spurling's: Negative Back: Range of motion of the trunk was intact. Negative focal tenderness. Extremities: no reported edema or erythema. Motor: Negative focal deficits Sensory: Intact to light touch bilateral upper extremities Gait: Within normal limits Medical record and diagnostic tests reviewed for today's visit: The [facility] EMR was reviewed during the visit IMAGING STUDIES: No new imaging studies were reviewed during this office visit. ASSESSMENT: (M48.02) Spinal stenosis of cervical region (primary encounter diagnosis) (M50.20) Displacement of cervical intervertebral disc without myelopathy (M79.18) Cervical myofascial pain syndrome Discussion: A discussion was entertained regarding multicomponent pain source. Discussed conservative optio (more content not included)... [facility] MR/BMS.IMBon 10-28-2023 MR/BMS.IMB [facility] [address] [place], [place] [address] OFFICE VISIT Date of Service: 10/28/23 MR#: [id number] Acct: [id number] Name: ZAK HELM Rep #: [id number] : 1975 Provider: Dr. Connie higginbotham MD Age/Sex: 47/M Location: [facility] [place] Status: Signed Intake Vital Signs 02/03/23 15:52 10/28/23 15:55 Height 5 ft 8 in 5 ft 8 in Weight: 182 lb 187 lb 8 oz BMI 27.6 28.5 BP 136/90 H 152/92 H Blood Pressure Location Lt brachial Lt brachial Position Sitting Sitting Respiration 16 Pulse 103 H 105 H Pulse Source Monitor Monitor Temp 98.2 F 98.6 F Temp Source Temporal Temporal Pulse Oximetry (%) 96 Oxygen Delivery Method room air Intake Visit Reasons: 8 M FU Chief Complaint: 8m f/u [employer] Required: No Accompanied by: Self Is patient in pain?: Yes (neck pain) Pain scale (1-10): 5 Allergies Seasonal Allergies: Uncoded Allergy (Unknown, Verified 10/28/23 15:53) NEEDS FOLLOW-UP citalopram (From [employer]) Allergy (Verified 10/28/23 15:53) Rash Medications ???Medication ???Instructions ???Recorded ???Confirmed ???Type azelastine 137 mcg (0.1 %) nasal 1 spray intranasal BID 02/03/23 10/28/23 History spray fluticasone propionate 50 1 spray intranasal BID 02/03/23 10/28/23 History mcg/actuation nasal spray,suspension minoxidil 2.5 mg tablet 2.5 mg PO DAILY 02/03/23 10/28/23 History PFSH Medical History Elevated TSH Seasonal allergies Migraines High cholesterol Surgical History History of shoulder surgery History of rotator cuff surgery Family History Father Diabetes Myocardial infarction, Onset Age: 80 Mother Hyperlipemia Social History Smoking Status: Never smoker alcohol intake: never substance use type: does not use what type of physical activity do you participate in: running and weight training frequency: 5-6 times per week HPI HPI Chief Complaint: 8m f/u Details: ZAK HELM, is a 47 M who presents to the office today for 6-month follow-up. Patient has history of of cervicogenic headache, neck pain, cervical disc herniation. In the past that was deemed not best to operate. He had been having facet injections while that helped the neck pain, he still has the ongoing headaches intermittently. Describes them along the temporal area, radiating from the posterior neck area. We have discussed that extensively in the past. Remotely tried chiropractic which did not seem to help much then referral to orthopedic mental health program specialist where he underwent MRI in 2021. Since then he has had periodi facet injections and while in the past again that help with the neck pain did not help a whole lot with the headaches. He does have sleep apnea and is using a mouthpiece and that has helped considerably. We discussed in the past getting CPAP we attempted that but he is doing okay here with the mouthpiece he states. He does have a number of metabolic issues as well. A few years ago his triglycerides when I first met him were very high, A1c borderline, findings all consistent with insulin resistance. Via good dietary pattern change, these made remarkable progress in terms of lowering his triglycerides, elevating his HDL, improving the insulin resistance, A1c, blood sugars, and AST and ALT. Was doing okay but gradually has slipped backwards in terms of the pattern and then more recently was on vacation where he really did not eat very good at all he states. We spent considerable time discussing that again as his triglycerides have once a gone gone up, AST and ALT up, HDL decreased again, blood pressure is mildly to moderately elevated all consistent with his underlying insulin resistance. He is not having chest pain, chest tightness, shortness of breath wheeze cough or congestion. No fever chills. No nausea or vomiting. Appetites been good. Bowel movements are regular. No specif ic urinary concerns. Review of systems per chart. Physical exam. Vital signs on chart. PERRLA. Sclera are clear. TMs are unremarkable with normal light reflexes. Canals are unremarkable. Posterior pharynx is unremarkable. Good dentition. No cervical or supraclavicular lymph nodes enlarged or tender. No clear thyromegaly. No thyroid nodules readily palpable. Lungs are without wheeze, rhonchi, rales. No E/A changes are heard. Heart is regular. Not tachycardic. No clear murmur, rub, or gallop is identified. The abdomen is soft. Bowel sounds are present. Nontender nondistended abdomen. No clear palpable masses in the abdomen. No significant leg edema. Cranial nerve examination 2 through 12 are grossly unremarkable (more content not included)... Normal [facility] Insulin Levelon 10-26-2023 INSULIN,FASTING 16.5 uIU/mL Normal 2.6-24.9 [facility] Comment on above: Result Comment: Perf ormed at: - [facility] [address] [id number] Home Care Nurse: Sesar Yepez PhD, Phone: [phone] Performed By: #### L 501.9985, L501.9910, L500.4050, L506.1000, L500.4100, L100.0100, L3300.3500, [id number] #### [facility] [address] [place], [place], [id number] Vitamin D,25 Hydroxyon 10-25 Vitamin D 25-OH 21.2 ng/mL Normal [facility] Comment on above: Result Comment: Inez min D 25(OH) Status Range Deficiency <20 ng/mL (50nmol/L) Insufficiency 20 - 30 ng/mL (50 - 75 nmol/L) Sufficiency 30 - 100 ng/mL (75 - 250 nmol/L) Toxicity >100 ng/mL (>250 nmol/L) Performed By: #### L 501.9985, L501.9910, L500.4050, L506.1000, L500.4100, L100.0100, L3300.3500, [id number] #### [facility] [address] [place], [place], [id number] CBC W/Diff, Automatedon - Absolute Lymph 2.25 X10 3/uL Normal 0.83-4.51 [facility] Comment on above: Performed By: #### L 501.9985, L501.9910, L500.4050, L506.1000, L500.4100, L100.0100, L3300.3500, [id number] #### [facility] [address] [place], [place], [id number] Absolute Neut 3.3 X10 3/uL Normal 2.0-7.7 [facility] Comment on above: Performed By: #### L 501.9985, L501.9910, L500.4050, L506.1000, L500.4100, L100.0100, L3300.3500, [id number] #### [facility] [address] [place], [address] Basophils/100 WBC (Bld) 0.8 % Normal 0-1 [facility] Comment on above: Performed By: #### L 501.9985, L501.9910, L500.4050, L506.1000, L500.4100, L100.0100, L3300.3500, [id number] #### [facility] [address] [place], [address] Eosinophils/100 WBC (Bld) 4.8 % Normal 0-5 [facility] Comment on above: Performed By: #### L 501.9985, L501.9910, L500.4050, L506.1000, L500.4100, L100.0100, L3300.3500, [id number] #### [facility] [address] [place], [address] Erythrocyte distribution width (RBC) [Ratio] 13.0 % Normal 11.6-14.6 [facility] Comment on above: Performed By: #### L 501.9985, L501.9910, L500.4050, L506.1000, L500.4100, L100.0100, L3300.3500, [id number] #### [facility] [address] [place], [address] Hematocrit (Bld) [Volume fraction] 44.9 % Normal 40-54 [facility] Comment on above: Performed By: #### L 501.9985, L501.9910, L500.4050, L506.1000, L500.4100, L100.0100, L3300.3500, [id number] #### [facility] [address] [place], [address] Hemoglobin (Bld) [Mass/Vol] 15.4 g/dL Normal 13.0-16.5 [facility] Comment on above: Performed By: #### L 501.9985, L501.9910, L500.4050, L506.1000, L500.4100, L100.0100, L3300.3500, [id number] #### [facility] [address] [place], [address] IG% 0.600 Normal 0.0-0.9 [facility] Comment on above: Result Comment: IG% - Immature Granulocytes (promyelocytes, myelocytes and metamyelocytes) > 1% indicates that a LEFT SHIFT is Present. Performed By: #### L 501.9985, L501.9910, L500.4050, L506.1000, L500.4100, L100.0100, L3300.3500, [id number] #### [facility] [address] [place], [address] Lymphocytes/100 WBC (Bld) 34.0 % Normal 19-41 [facility] Comment on above: Performed By: #### L 501.9985, L501.9910, L500.4050, L506.1000, L500.4100, L100.0100, L3300.3500, [id number] #### [facility] [address] [place], [address] MCH (RBC) [Entitic mass] 28.4 pg Normal 27.0-32.0 [facility] Comment on above: Performed By: #### L 501.9985, L501.9910, L500.4050, L506.1000, L500.4100, L100.0100, L3300.3500, [id number] #### [facility] [address] [place], [address] MCHC (RBC) [Mass/Vol] 34.3 g/dL Normal 32-36 [facility] Comment on above: Performed By: #### L 501.9985, L501.9910, L500.4050, L506.1000, L500.4100, L100.0100, L3300.3500, [id number] #### [facility] [address] [place], [address] MCV (RBC) [Entitic vol] 82.8 fL Normal 80-94 [facility] Comment on above: Performed By: #### L 501.9985, L501.9910, L500.4050, L506.1000, L500.4100, L100.0100, L3300.3500, [id number] #### [facility] [address] [place], [address] Monocytes/100 WBC (Bld) 9.4 % Normal 0-10 [facility] Comment on above: Performed By: #### L 501.9985, L501.9910, L500.4050, L506.1000, L500.4100, L100.0100, L3300.3500, L501.9520 #### [facility] [address] [place], [address] Neutrophils/100 WBC (Bld) 50.4 % Normal 47-70 [facility] Comment on above: Performed By: #### L 501.9985, L501.9910, L500.4050, L506.1000, L500.4100, L100.0100, L3300.3500, L501.9520 #### [facility] [address] [place], [address] Nucleated RBC (Bld) [#/Vol] 0 10*3/uL Normal 0-5 [facility] Comment on above: Performed By: #### L 501.9985, L501.9910, L500.4050, L506.1000, L500.4100, L100.0100, L3300.3500, L501.9520 #### [facility] [address] [place], [address] Platelet mean volume (Bld) [Entitic vol] 10.9 fL Normal 6.2-12.0 [facility] Comment on above: Performed By: #### L 501.9985, L501.9910, L500.4050, L506.1000, L500.4100, L100.0100, L3300.3500, L501.9520 #### [facility] [address] [place], [address] ( Platelets (Bld) [#/Vol] 220 10*3/uL Normal 150-450 [facility] Comment on above: Performed By: #### L 501.9985, L501.9910, L500.4050, L506.1000, L500.4100, L100.0100, L3300.3500, L501.9520 #### [facility] [address] [place], [address] (950) RBC (Bld) [#/Vol] 5.42 10*6/uL Normal 4.6-6.2 [facility] Comment on above: Performed By: #### L 501.9985, L501.9910, L500.4050, L506.1000, L500.4100, L100.0100, L3300.3500, L501.9520 #### [facility] [address] [place], [address] RDW SD 39.1 fl Normal 35.1-43.9 [facility] Comment on above: Performed By: #### L 501.9985, L501.9910, L500.4050, L506.1000, L500.4100, L100.0100, L3300.3500, L501.9520 #### [facility] [address] [place], [address] WBC (Bld) [#/Vol] 6.6 10*3/uL Normal 4.4-11.0 [facility] Comment on above: Performed By: #### L 501.9985, L501.9910, L500.4050, L506.1000, L500.4100, L100.0100, L3300.3500, L501.9520 #### [facility] [address] [place], [address] Comprehensive Metabolic Prof scon 10-23-2023 Albumin [Mass/Vol] 3.6 g/dL Normal 3.2-5.0 [facility] Comment on above: Performed By: #### L 501.9985, L501.9910, L500.4050, L506.1000, L500.4100, L100.0100, L3300.3500, L501.9520 #### [facility] [address] [place], [address] Albumin/Globulin [Mass ratio] 0.9 {ratio} Normal 0.9-2.4 [facility] Comment on above: Performed By: #### L 501.9985, L501.9910, L500.4050, L506.1000, L500.4100, L100.0100, L3300.3500, L501.9520 #### [facility] [address] [place], [address] ALK P 84 U/L Normal 45-117 [facility] Comment on above: Performed By: #### L 501.9985, L501.9910, L500.4050, L506.1000, L500.4100, L100.0100, L3300.3500, L501.9520 #### [facility] [address] [place], [address] ALT [Catalytic activity/Vol] 82 U/L High 16-61 [facility] Comment on above: Performed By: #### L 501.9985, L501.9910, L500.4050, L506.1000, L500.4100, L100.0100, L3300.3500, L501.9520 #### [facility] [address] [place], [address] AST [Catalytic activity/Vol] 42 U/L High 15-37 [facility] Comment on above: Result Comment: Slig ht Hemolysis, Result may be falsely increased. Performed By: #### L 501.9985, L501.9910, L500.4050, L506.1000, L500.4100, L100.0100, L3300.3500, L501.9520 #### [facility] [address] [place], [address] Bilirubin [Mass/Vol] 0.30 mg/dL Normal 0.20-1.00 [facility] Comment on above: Result Comment: For patients on eltrombopag therapy, use of [employer] [place] TBIL is not recommended. Performed By: #### L 501.9985, L501.9910, L500.4050, L506.1000, L500.4100, L100.0100, L3300.3500, L501.9520 #### [facility] [address] [place], [address] BUN/CRE 15.9 RATIO Normal 10-20 [facility] Comment on above: Performed By: #### L 501.9985, L501.9910, L500.4050, L506.1000, L500.4100, L100.0100, L3300.3500, L501.9520 #### [facility] [address] [place], [address] CA,Total 8.9 mg/dL Normal 8.5-10.1 [facility] Comment on above: Performed By: #### L 501.9985, L501.9910, L500.4050, L506.1000, L500.4100, L100.0100, L3300.3500, L501.9520 #### [facility] [address] [place], [address] Chloride [Moles/Vol] 109 mmol/L High 98-107 [facility] Comment on above: Performed By: #### L 501.9985, L501.9910, L500.4050, L506.1000, L500.4100, L100.0100, L3300.3500, L501.9520 #### [facility] [address] [place], [address] CO2 [Moles/Vol] 24.0 mmol/L Normal 21.0-32.0 [facility] Comment on above: Performed By: #### L 501.9985, L501.9910, L500.4050, L506.1000, L500.4100, L100.0100, L3300.3500, L501.9520 #### [facility] [address] [place], [address] Creatinine [Mass/Vol] 1.07 mg/dL Normal 0.70-1.30 [facility] Comment on above: Result Comment: The validity of the calculated GFR GFRAA in patients over 70 years has not been determined. Clinical correlation is essential. Performed By: #### L 501.9985, L501.9910, L500.4050, L506.1000, L500.4100, L100.0100, L3300.3500, L501.9520 #### [facility] [address] [place], [address] EST GFR - AA 96 mL/min Normal >60 [facility] Comment on above: Result Comment: Afri can [place] GFR Calc Performed By: #### L 501.9985, L501.9910, L500.4050, L506.1000, L500.4100, L100.0100, L3300.3500, L501.9520 #### [facility] [address] [place], [address] GAP 7 Normal 5-15 [facility] Comment on above: Performed By: #### L 501.9985, L501.9910, L500.4050, L506.1000, L500.4100, L100.0100, L3300.3500, L501.9520 #### [facility] [address] [place], [address] GFR/1.73 sq M.predicted among non-blacks MDRD (S/P/Bld) [Vol rate/Area] 79 mL/min/{1.73_m2} Normal >60 [facility] Comment on above: Result Comment: Non- GFR Calc Performed By: #### L 501.9985, L501.9910, L500.4050, L506.1000, L500.4100, L100.0100, L3300.3500, L501.9520 #### [facility] [address] [place], [address] Globulin (S) [Mass/Vol] 3.9 g/dL Normal 2.2-4.2 [facility] Comment on above: Performed By: #### L 501.9985, L501.9910, L500.4050, L506.1000, L500.4100, L100.0100, L3300.3500, L501.9520 #### [facility] [address] [place], [address] Glucose [Mass/Vol] 109 mg/dL High 74-106 [facility] Comment on above: Result Comment: Fast ing Glucose result from 100 to 125 mg/dL suggests IMPAIRED HOMEOSTASIS per A.D.A. criteria. Performed By: #### L 501.9985, L501.9910, L500.4050, L506.1000, L500.4100, L100.0100, L3300.3500, L501.9520 #### [facility] [address] [place], [address] Potassium [Moles/Vol] 3.7 mmol/L Normal 3.5-5.1 [facility] Comment on above: Result Comment: Slig ht Hemolysis, Result may be falsely increased. Performed By: #### L 501.9985, L501.9910, L500.4050, L506.1000, L500.4100, L100.0100, L3300.3500, L501.9520 #### [facility] [address] [place], [address] Sodium [Moles/Vol] 140 mmol/L Normal 136-145 [facility] Comment on above: Performed By: #### L 501.9985, L501.9910, L500.4050, L506.1000, L500.4100, L100.0100, L3300.3500, L501.9520 #### [facility] [address] [place], [address] T PROT 7.5 g/dL Normal 6.4-8.2 [facility] Comment on above: Performed By: #### L 501.9985, L501.9910, L500.4050, L506.1000, L500.4100, L100.0100, L3300.3500, L501.9520 #### [facility] [address] [place], [address] Urea nitrogen [Mass/Vol] 17 mg/dL Normal 7-18 [facility] Comment on above: Performed By: #### L 501.9985, L501.9910, L500.4050, L506.1000, L500.4100, L100.0100, L3300.3500, L501.9520 #### [facility] [address] [place], [address] Hemoglobin A1con 10-23-2023 HbA1c (Bld) [Mass fraction] 5.8 % High 3.8-5.6 [facility] Comment on above: Result Comment: Norm al < 5.7 % Prediabetic 5.7 - 6.4 % Diabetic >or= 6.5 % Please note range changes. Performed By: #### L 501.9985, L501.9910, L500.4050, L506.1000, L500.4100, L100.0100, L3300.3500, L501.9520 #### [facility] [address] [place], [address] Lipid Profileon 10-23-2023 Cholesterol [Mass/Vol] 254 mg/dL High 200 [facility] Comment on above: Result Comment: <200 mg/dL Desirable 200-240 mg/dL Borderline >240 mg/dL High Risk Performed By: #### L 501.9985, L501.9910, L500.4050, L506.1000, L500.4100, L100.0100, L3300.3500, L501.9520 #### [facility] [address] [place], [address] Cholesterol in HDL [Mass/Vol] 39 mg/dL Low [facility] Comment on above: Result Comment: The drugs N-Acetylcysteine and Metamizole may falsely depress this assay. Reference Range HDL <40 mg/dL Low HDL Cholesterol HDL >or= 60 mg/dL High HDL Cholesterol Performed By: #### L 501.9985, L501.9910, L500.4050, L506.1000, L500.4100, L100.0100, L3300.3500, L501.9520 #### [facility] [address] [place], [address] LDL TNP Normal 0-130 [facility] Comment on above: Performed By: #### L 501.9985, L501.9910, L500.4050, L506.1000, L500.4100, L100.0100, L3300.3500, L501.9520 #### [facility] [address] [place], [address] Triglyceride [Mass/Vol] 433 mg/dL High [facility] Comment on above: Result Comment: The drugs N-Acetylcysteine and Metamizole may falsely depress this assay. TRIGLYCERIDE IS GREATER THAN 400 mg/dL. LDL RESULT IS INVALID AND WILL NOT BE REPORTED. Serum Triglycerides Reference Interval Normal <150 mg/dL Borderline high 150 - 199 mg/dL High 200 - 499 mg/dL Very High > or = 500 mg/dL Performed By: #### L 501.9985, L501.9910, L500.4050, L506.1000, L500.4100, L100.0100, L3300.3500, L501.9520 #### [facility] [address] [place], [address] VLDL TNP Normal 5-40 [facility] Comment on above: Performed By: #### L 501.9985, L501.9910, L500.4050, L506.1000, L500.4100, L100.0100, L3300.3500, L501.9520 #### [facility] [address] [place], [address] PSA,Total - Annual Screenon 10-23-2023 PSA,TOT SCREEN 0.29 ng/mL Normal 0.00-4.00 [facility] Comment on above: Result Comment: This test was performed using the TPSA assay method for the [employer] chemistry system. Values obtained with different assay methods cannot be used interchangably. When changing PSA assays in the course of monitoring a patient, additional sequential testing should be carried out to confirm baseline values. Performed By: #### L 501.9985, L501.9910, L500.4050, L506.1000, L500.4100, L100.0100, L3300.3500, L501.9520 #### [facility] [address] [place], [address] Thyroid Stim Hormone (TSH)on 10-23-2023 TSH 5.230 uIU/mL High 0.358-3.740 [facility] Comment on above: Performed By: #### L 501.9985, L501.9910, L500.4050, L506.1000, L500.4100, L100.0100, L3300.3500, L501.9520 #### [facility] [address] [place], [address] Basophil percentageOrdered B y: Connie Ortega on 01-30-2023 Bilirubin [Mass/Vol] 0.30 mg/dL 0.20-1.00 [facility] Comment on above: For patients on eltr ombopag therapy, use of [employer] [place] TBIL is not recommended. Chloride [Moles/Vol] 110 mmol/L 98-107 [facility] Cholesterol [Mass/Vol] 248 mg/dL <200 [facility] Comment on above: <200 mg/dL Desirable 200-240 mg/dL Borderline >240 mg/dL High Risk Glucose [Mass/Vol] 105 mg/dL 74-106 [facility] Comment on above: Fasting Glucose resu lt from 100 to 125 mg/dL suggests IMPAIRED HOMEOSTASIS per A.D.A. criteria. Potassium [Moles/Vol] 3.7 mmol/L 3.5-5.1 [facility] Protein [Mass/Vol] 7.4 g/dL 6.4-8.2 [facility] Sodium [Moles/Vol] 139 mmol/L 136-145 [facility] Triglyceride [Mass/Vol] 249 mg/dL <199 [facility] Comment on above: The drugs N-Acetylcy steine and Metamizole may falsely depress this assay.Serum Triglycerides Reference Interval Normal <150 mg/dL Borderline high 150 - 199 mg/dL High 200 - 499 mg/dL Very High > or = 500 mg/dL Laboratory - Chemistry and C hemistry - challengeOrdered By: Connie Ortega on 01-30-2023 ALP [Catalytic activity/Vol] 82 U/L 45-117 [facility] ALT [Catalytic activity/Vol] 41 U/L 16-61 [facility] CO2 [Moles/Vol] 28.0 mmol/L 21.0-32.0 [facility] Globulin (S) [Mass/Vol] 3.6 g/dL 2.2-4.2 [facility] Urea nitrogen/Creatinine [Mass ratio] 15.3 mg/mg 10-20 [facility] No Panel InformationOrdered By: Connie Ortega on 01-30-2023 Estimated GFR (MDRD) Amer 106 mL/min >60 [facility] Comment on above: GFR Calc Estimated GFR (MDRD) Non-Af Amer 88 mL/min >60 [facility] Comment on above: Non- GFR Calc Vitamin D 25-Hydroxy 30.6 ng/mL [facility] Comment on above: Vitamin D 25(OH) Sta tus Range Deficiency <20 ng/mL (50nmol/L) Insufficiency 20 - 30 ng/mL (50 - 75 nmol/L) Sufficiency 30 - 100 ng/mL (75 - 250 nmol/L) Toxicity >100 ng/mL (>250 nmol/L) Serum or plasma albumin awilda urement (mass/volume)Ordered By: Connie Ortega on 01-30-2023 Albumin [Mass/Vol] 3.8 g/dL 3.2-5.0 [facility] Serum or plasma albumin/glob ulin mass ratioOrdered By: Connie Ortega on 01-30-2023 Albumin/Globulin [Mass ratio] 1.1 {ratio} 0.9-2.4 [facility] Serum or plasma calcium awilda urement (mass/volume)Ordered By: Connie Ortega on 01-30-2023 Calcium [Mass/Vol] 9.1 mg/dL 8.5-10.1 [facility] Serum or plasma cholesterol in HDL measurement (mass/volume)Ordered By: Connie Ortega on 01-30-2023 Cholesterol in HDL [Mass/Vol] 38 mg/dL >40 [facility] Comment on above: The drugs N-Acetylcy steine and Metamizole may falsely depress this assay. Reference Range HDL <40 mg/dL Low HDL Cholesterol HDL >or= 60 mg/dL High HDL Cholesterol Serum or plasma cholesterol in VLDL measurement (mass/volume)Ordered By: Connie Ortega on 01-30-2023 Cholesterol in VLDL [Mass/Vol] 50 mg/dL 5-40 [facility] Serum or plasma creatinine m easurement (mass/volume)Ordered By: Connie Ortega on 01-30-2023 Creatinine [Mass/Vol] 0.98 mg/dL 0.70-1.30 [facility] Comment on above: The validity of the calculated GFR & GFRAA in patients over 70 years has not been determined. Clinical correlation is essential. Serum or plasma low density lipoprotein (LDL) cholesterol measurement (mass/volume)Ordered By: Connie Ortega on 01-30-2023 Cholesterol in LDL [Mass/Vol] 160 mg/dL 0-130 [facility] Serum or plasma urea nitroge n measurement (mass/volume)Ordered By: Connie Ortega on 01-30-2023 Urea nitrogen [Mass/Vol] 15 mg/dL 7-18 [facility] Thin prep Papanicolaou smear with manual screeningOrdered By: Connie Ortega on 01-30-2023 Thin prep Papanicolaou smear with manual screening 19 U/L 15-37 [facility] Thin prep Papanicolaou smear with manual screening 1 5-15 [facility] Whole blood hemoglobin A1c/t otal hemoglobin ratio (mass fraction)Ordered By: Connie Ortega on 01-30-2023 HbA1c (Bld) [Mass fraction] 5.7 % 3.8-5.6 [facility] Comment on above: Normal < 5.7 % Predi abetic 5.7 - 6.4 % Diabetic >or= 6.5 % Please note range changes. Absolute lymphocyte countOrd ered By: Dr. Ortega on 07-25-2022 Lymphocytes Auto (Unsp spec) [#/Vol] 1.88 10*3/uL 0.83-4.51 [facility] Basophil percentageOrdered B y: Dr. Ortega on 07-25-2022 Basophils/100 WBC (Bld) 0.7 % 0-1 [facility] Bilirubin [Mass/Vol] 0.50 mg/dL 0.20-1.00 [facility] Comment on above: For patients on eltr ombopag therapy, use of [employer] [place] TBIL is not recommended. Chloride [Moles/Vol] 107 mmol/L 98-107 [facility] Cholesterol [Mass/Vol] 269 mg/dL <200 [facility] [facility] Comment on above: <200 mg/dL Desirable 200-240 mg/dL Borderline >240 mg/dL High Risk Eosinophils/100 WBC (Bld) 4.5 % 0-5 [facility] Glucose [Mass/Vol] 102 mg/dL 74-106 [facility] Comment on above: Fasting Glucose resu lt from 100 to 125 mg/dL suggests IMPAIRED HOMEOSTASIS per A.D.A. criteria. Neutrophils (Bld) [#/Vol] 2.9 10*3/uL 2.0-7.7 [facility] Neutrophils/100 WBC (Bld) 52.3 % 47-70 [facility] Potassium [Moles/Vol] 3.9 mmol/L 3.5-5.1 [facility] Protein [Mass/Vol] 7.6 g/dL 6.4-8.2 [facility] Sodium [Moles/Vol] 141 mmol/L 136-145 [facility] Triglyceride [Mass/Vol] 256 mg/dL <199 [facility] Comment on above: The drugs N-Acetylcy steine and Metamizole may falsely depress this assay.Serum Triglycerides Reference Interval Normal <150 mg/dL Borderline high 150 - 199 mg/dL High 200 - 499 mg/dL Very High > or = 500 mg/dL WBC (Bld) [#/Vol] 5.6 10*3/uL 4.4-11.0 [facility] Blood erythrocytes count (nu mber/volume)Ordered By: Dr. Ortega on 07-25-2022 RBC (Bld) [#/Vol] 5.45 10*6/uL 4.6-6.2 [facility] Blood hemoglobin measurement (mass/volume)Ordered By: Dr. Ortega on 07-25-2022 Hemoglobin (Bld) [Mass/Vol] 15.6 g/dL 13.0-16.5 [facility] Blood lymphocytes/100 leukoc ytesOrdered By: Dr. Ortega on 07-25-2022 Lymphocytes/100 WBC (Bld) 33.6 % 19-41 [facility] Blood monocytes/100 leukocyt esOrdered By: Dr. Ortega on 07-25-2022 Monocytes/100 WBC (Bld) 8.4 % 0-10 [facility] Blood platelet mean volumeOr dered By: Dr. Ortega on 07-25-2022 Platelet mean volume (Bld) [Entitic vol] 10.8 fL 6.2-12.0 [facility] Determination of erythrocyte mean corpuscular volume (MCV)Ordered By: Dr. Ortega on 07-25-2022 MCV (RBC) [Entitic vol] 83.5 fL 80-94 [facility] Hematocrit Auto (Bld) [Volum e fraction]Ordered By: Dr. Ortega on 07-25-2022 Hematocrit (Bld) [Volume fraction] 45.5 % 40-54 [facility] Laboratory - Chemistry and C hemistry - challengeOrdered By: Dr. Ortega on 07-25-2022 ALP [Catalytic activity/Vol] 75 U/L 45-117 [facility] ALT [Catalytic activity/Vol] 47 U/L 16-61 [facility] CO2 [Moles/Vol] 25.0 mmol/L 21.0-32.0 [facility] Globulin (S) [Mass/Vol] 3.7 g/dL 2.2-4.2 [facility] Urea nitrogen/Creatinine [Mass ratio] 17.6 mg/mg 10-20 [facility] Laboratory - Hematology and Cell countsOrdered By: Dr. Ortega on 07-25-2022 Erythrocyte distribution width (RBC) [Entitic vol] 38.3 fL 35.1-43.9 [facility] Erythrocyte distribution width (RBC) [Ratio] 12.7 % 11.6-14.6 [facility] Immature granulocytes/100 WBC (Bld) 0.500 % 0.0-0.9 [facility] Comment on above: IG% - Immature Granu locytes (promyelocytes, myelocytes and metamyelocytes) > 1% indicates that a LEFT SHIFT is Present. MCH (RBC) [Entitic mass] 28.6 pg 27.0-32.0 [facility] Nucleated RBC/100 WBC (Bld) [Ratio] 0 % 0-5 [facility] MCHC Auto (RBC) [Mass/Vol]Or dered By: Dr. Ortega on 07-25-2022 MCHC (RBC) [Mass/Vol] 34.3 g/dL 32-36 [facility] No Panel InformationOrdered By: Dr. Ortega on 07-25-2022 Estimated GFR (MDRD) Amer 95 mL/min >60 [facility] Comment on above: GFR Calc Estimated GFR (MDRD) Non-Af Amer 79 mL/min >60 [facility] Comment on above: Non- GFR Calc Insulin Level 15.5 mU/L 2.6-37.6 [facility] Platelets bldOrdered By: Dr. Ortega on 07-25-2022 Platelets (Bld) [#/Vol] 221 10*3/uL 150-450 [facility] Serum or plasma albumin awilda urement (mass/volume)Ordered By: Dr. Ortega on 07-25-2022 Albumin [Mass/Vol] 3.9 g/dL 3.2-5.0 [facility] Serum or plasma albumin/glob ulin mass ratioOrdered By: Dr. Ortega on 07-25-2022 Albumin/Globulin [Mass ratio] 1.1 {ratio} 0.9-2.4 [facility] Serum or plasma calcium awilda urement (mass/volume)Ordered By: Dr. Ortega on 07-25-2022 Calcium [Mass/Vol] 9.1 mg/dL 8.5-10.1 [facility] Serum or plasma cholesterol in HDL measurement (mass/volume)Ordered By: Dr. Ortega on 07-25-2022 Cholesterol in HDL [Mass/Vol] 41 mg/dL >40 [facility] Comment on above: The drugs N-Acetylcy steine and Metamizole may falsely depress this assay. Reference Range HDL <40 mg/dL Low HDL Cholesterol HDL >or= 60 mg/dL High HDL Cholesterol Serum or plasma cholesterol in VLDL measurement (mass/volume)Ordered By: Dr. Ortega on 07-25-2022 Cholesterol in VLDL [Mass/Vol] 51 mg/dL 5-40 [facility] Serum or plasma creatinine m easurement (mass/volume)Ordered By: Dr. Ortega on 07-25-2022 Creatinine [Mass/Vol] 1.08 mg/dL 0.70-1.30 [facility] Comment on above: The validity of the calculated GFR & GFRAA in patients over 70 years has not been determined. Clinical correlation is essential. Serum or plasma low density lipoprotein (LDL) cholesterol measurement (mass/volume)Ordered By: Dr. Ortega on 07-25-2022 Cholesterol in LDL [Mass/Vol] 177 mg/dL 0-130 [facility] Serum or plasma urea nitroge n measurement (mass/volume)Ordered By: Dr. Ortega on 07-25-2022 Urea nitrogen [Mass/Vol] 19 mg/dL 7-18 [facility] Thin prep Papanicolaou smear with manual screeningOrdered By: Dr. Ortega on 07-25-2022 Thin prep Papanicolaou smear with manual screening 22 U/L 15-37 [facility] Thin prep Papanicolaou smear with manual screening 9 5-15 [facility] Whole blood hemoglobin A1c/t otal hemoglobin ratio (mass fraction)Ordered By: Dr. Ortega on 07-25-2022 HbA1c (Bld) [Mass fraction] 5.6 % 3.8-5.6 [facility] Comment on above: Normal < 5.7 % Predi abetic 5.7 - 6.4 % Diabetic >or= 6.5 % Please note range changes. Basophil percentageon 2021 Testosterone [Mass/Vol] 349 ng/dL 264-006 [facility] Work Phone: Comment on above: Adult male reference interval is based on a population ofhealthy nonobese males (BMI <30) between 19 and 39 yearsold. Briana et.al. JCEM 2017,102;[id number]. PMID:[id number]. Free testosterone percentage on 01-08-2022 Testosterone Free/Testosterone.tota l [Mass fraction] 3.11 % 1.50-4.20 [facility] Work Phone: Comment on above: Performed at: - [address] [id number] Director: Sesar Yepez PhD, Phone: [phone] at: - [facility] [address] [id number] Director: Nuzhat Harkins MD, Phone: [phone] Laboratory - Chemistry and C hemistry - challengeon 01-08-2022 Free T4 [Mass/Vol] 0.90 ng/dL 0.76-1.46 [facility] Work Phone: No Panel Informationon 01-08 Free Triiodothyronine (T3) pg/dL 2.9 pg/mL 2.18-3.98 [facility] Work Phone: Thyroid Stimulating Hormone (TSH) 3.76 uIU/mL 0.358-3.74 [facility] Work Phone: Vitamin D 25-Hydroxy 15.5 ng/mL [facility] Work Phone: Comment on above: Vitamin D 25(OH) Sta tus Range Deficiency <20 ng/mL (50nmol/L) Insufficiency 20 - 30 ng/mL (50 - 75 nmol/L) Sufficiency 30 - 100 ng/mL (75 - 250 nmol/L) Toxicity >100 ng/mL (>250 nmol/L) Serum or plasma testosterone free measurement (mass/volume)on 01-08-2022 Testosterone Free [Mass/Vol] 10.85 ng/dL 5.00-21.00 [facility] Work Phone: Absolute lymphocyte counton 12-20-2021 Lymphocytes Auto (Unsp spec) [#/Vol] 2.16 10*3/uL 0.83-4.51 [facility] Work Phone: Basophil percentageon 2021 Basophils/100 WBC (Bld) 0.6 % 0-1 [facility] Work Phone: Bilirubin [Mass/Vol] 0.50 mg/dL 0.20-1.00 [facility] Work Phone: Comment on above: For patients on eltr ombopag therapy, use of Dimension [place] TBIL is not recommended. Chloride [Moles/Vol] 108 mmol/L 98-107 [facility] Work Phone: Cholesterol [Mass/Vol] 257 mg/dL <200 [facility] Work Phone: Comment on above: <200 mg/dL Desirable 200-240 mg/dL Borderline >240 mg/dL High Risk Eosinophils/100 WBC (Bld) 4.2 % 0-5 [facility] Work Phone: Glucose [Mass/Vol] 106 mg/dL 74-106 [facility] Work Phone: [phone] Comment on above: Fasting Glucose resu lt from 100 to 125 mg/dL suggests IMPAIRED HOMEOSTASIS per A.D.A. criteria. Neutrophils (Bld) [#/Vol] 3.6 10*3/uL 2.0-7.7 [facility] Work Phone: [phone] Neutrophils/100 WBC (Bld) 54.0 % 47-70 [facility] Work Phone: Potassium [Moles/Vol] 4.3 mmol/L 3.5-5.1 [facility] Work Phone: [phone] Protein [Mass/Vol] 7.3 g/dL 6.4-8.2 [facility] Work Phone: Sodium [Moles/Vol] 139 mmol/L 136-145 [facility] Work Phone: Triglyceride [Mass/Vol] 259 mg/dL <199 [facility] Work Phone: Comment on above: The drugs N-Acetylcy steine and Metamizole may falsely depress this assay.Serum Triglycerides Reference Interval Normal <150 mg/dL Borderline high 150 - 199 mg/dL High 200 - 499 mg/dL Very High > or = 500 mg/dL WBC (Bld) [#/Vol] 6.7 10*3/uL 4.4-11.0 [facility] Work Phone: Blood erythrocytes count (nu mber/volume)on 12-20-2021 RBC (Bld) [#/Vol] 5.26 10*6/uL 4.6-6.2 [facility] Work Phone: Blood hemoglobin measurement (mass/volume)on 12-20-2021 Hemoglobin (Bld) [Mass/Vol] 15.4 g/dL 13.0-16.5 [facility] Work Phone: Blood lymphocytes/100 leukoc yteson 12-20-2021 Lymphocytes/100 WBC (Bld) 32.3 % 19-41 [facility] Work Phone: [phone] Blood monocytes/100 leukocyt eson 12-20-2021 Monocytes/100 WBC (Bld) 8.5 % 0-10 [facility] Work Phone: Blood platelet mean volumeon 12-20-2021 Platelet mean volume (Bld) [Entitic vol] 10.6 fL 6.2-12.0 [facility] Work Phone: Determination of erythrocyte mean corpuscular volume (MCV)on 12-20-2021 MCV (RBC) [Entitic vol] 84.4 fL 80-94 [facility] Work Phone: Hematocrit Auto (Bld) [Volum e fraction]on 12-20-2021 Hematocrit (Bld) [Volume fraction] 44.4 % 40-54 [facility] Work Phone: Laboratory - Chemistry and C hemistry - challengeon 12-20-2021 ALP [Catalytic activity/Vol] 79 U/L 45-117 [facility] Work Phone: ALT [Catalytic activity/Vol] 76 U/L 16-61 [facility] Work Phone: CO2 [Moles/Vol] 26.0 mmol/L 21.0-32.0 [facility] Work Phone: Globulin (S) [Mass/Vol] 3.6 g/dL 2.2-4.2 [facility] Work Phone: [phone] Urea nitrogen/Creatinine [Mass ratio] 18.6 mg/mg 10-20 [facility] Work Phone: Laboratory - Hematology and Cell countson 12-20-2021 Erythrocyte distribution width (RBC) [Entitic vol] 39.9 fL 35.1-43.9 [facility] Work Phone: Erythrocyte distribution width (RBC) [Ratio] 13.0 % 11.6-14.6 [facility] Work Phone: Immature granulocytes/100 WBC (Bld) 0.400 % 0.0-0.9 [facility] Work Phone: Comment on above: IG% - Immature Granu locytes (promyelocytes, myelocytes and metamyelocytes) > 1% indicates that a LEFT SHIFT is Present. MCH (RBC) [Entitic mass] 29.3 pg 27.0-32.0 [facility] Work Phone: Nucleated RBC/100 WBC (Bld) [Ratio] 0 % 0-5 [facility] Work Phone: MCHC Auto (RBC) [Mass/Vol]on 12-20-2021 MCHC (RBC) [Mass/Vol] 34.7 g/dL 32-36 [facility] Work Phone: No Panel Informationon 12-20 Estimated GFR (MDRD) Amer 91 mL/min >60 [facility] Work Phone: Comment on above: GFR Calc Estimated GFR (MDRD) Non-Af Amer 75 mL/min >60 [facility] Work Phone: Comment on above: Non- GFR Calc Prostate Specific Antigen Screen 0.14 ng/mL 0.00-4.00 [facility] Work Phone: Comment on above: This test was perfor med using the TPSA assay method for the[facility]. Values obtained with differentassay methods cannot be used interchangably.When changing PSA assays in the course of monitoring apatient, additional sequential testing should be carriedout to confirm baseline values. Platelets bldon 12-20-2021 Platelets (Bld) [#/Vol] 208 10*3/uL 150-450 [facility] Work Phone: Serum or plasma albumin awilda urement (mass/volume)on 12-20-2021 Albumin [Mass/Vol] 3.7 g/dL 3.2-5.0 [facility] Work Phone: Serum or plasma albumin/glob ulin mass ratioon 12-20-2021 Albumin/Globulin [Mass ratio] 1.0 {ratio} 0.9-2.4 [facility] Work Phone: Serum or plasma calcium awilda urement (mass/volume)on 12-20-2021 Calcium [Mass/Vol] 8.8 mg/dL 8.5-10.1 [facility] Work Phone: Serum or plasma cholesterol in HDL measurement (mass/volume)on 12-20-2021 Cholesterol in HDL [Mass/Vol] 41 mg/dL >40 [facility] Work Phone: Comment on above: The drugs N-Acetylcy steine and Metamizole may falsely depress this assay. Reference Range HDL <40 mg/dL Low HDL Cholesterol HDL >or= 60 mg/dL High HDL Cholesterol Serum or plasma cholesterol in VLDL measurement (mass/volume)on 12-20-2021 Cholesterol in VLDL [Mass/Vol] 52 mg/dL 5-40 [facility] Work Phone: Serum or plasma creatinine m easurement (mass/volume)on 12-20-2021 Creatinine [Mass/Vol] 1.13 mg/dL 0.70-1.30 [facility] Work Phone: Comment on above: The validity of the calculated GFR & GFRAA in patients over 70 years has not been determined. Clinical correlation is essential. Serum or plasma low density lipoprotein (LDL) cholesterol measurement (mass/volume)on 12-20-2021 Cholesterol in LDL [Mass/Vol] 164 mg/dL 0-130 [facility] Work Phone: Serum or plasma urea nitroge n measurement (mass/volume)on 12-20-2021 Urea nitrogen [Mass/Vol] 21 mg/dL 7-18 [facility] Work Phone: Thin prep Papanicolaou smear with manual screeningon 12-20-2021 Thin prep Papanicolaou smear with manual screening 33 U/L 15-37 [facility] Work Phone: Thin prep Papanicolaou smear with manual screening 5 5-15 [facility] Work Phone: Whole blood hemoglobin A1c/t otal hemoglobin ratio (mass fraction)on 12-20-2021 HbA1c (Bld) [Mass fraction] 5.8 % 3.8-5.6 [facility] Work Phone: Comment on above: Normal < 5.7 % Predi abetic 5.7 - 6.4 % Diabetic >or= 6.5 % Please note range changes. Basophil percentageon 2021 Bilirubin [Mass/Vol] 0.50 mg/dL 0.20-1.00 [facility] Work Phone: Comment on above: For patients on eltr ombopag therapy, use of [place] TBIL is not recommended. Chloride [Moles/Vol] 109 mmol/L 98-107 [facility] Work Phone: Cholesterol [Mass/Vol] 176 mg/dL <200 [facility] Work Phone: Comment on above: <200 mg/dL Desirable 200-240 mg/dL Borderline >240 mg/dL High Risk Glucose [Mass/Vol] 97 mg/dL 74-106 [facility] Work Phone: Potassium [Moles/Vol] 3.8 mmol/L 3.5-5.1 [facility] Work Phone: Protein [Mass/Vol] 7.4 g/dL 6.4-8.2 [facility] Work Phone: Sodium [Moles/Vol] 140 mmol/L 136-145 [facility] Work Phone: Triglyceride [Mass/Vol] 131 mg/dL <199 [facility] Work Phone: Comment on above: The drugs N-Acetylcy steine and Metamizole may falsely depress this assay.Serum Triglycerides Reference Interval Normal <150 mg/dL Borderline high 150 - 199 mg/dL High 200 - 499 mg/dL Very High > or = 500 mg/dL Laboratory - Chemistry and C hemistry - challengeon 05-24-2021 ALP [Catalytic activity/Vol] 74 U/L 45-117 [facility] Work Phone: ALT [Catalytic activity/Vol] 58 U/L 16-61 [facility] Work Phone: CO2 [Moles/Vol] 25.0 mmol/L 21.0-32.0 [facility] Work Phone: Globulin (S) [Mass/Vol] 3.8 g/dL 2.2-4.2 [facility] Work Phone: Urea nitrogen/Creatinine [Mass ratio] 14.3 mg/mg 10-20 [facility] Work Phone: No Panel Informationon 05-24 Estimated GFR (MDRD) Amer 92 mL/min >60 [facility] Work Phone: Comment on above: GFR Calc Estimated GFR (MDRD) Non-Af Amer 76 mL/min >60 [facility] Work Phone: Comment on above: Non- GFR Calc Serum or plasma albumin awilda urement (mass/volume)on 05-24-2021 Albumin [Mass/Vol] 3.6 g/dL 3.2-5.0 [facility] Work Phone: Serum or plasma albumin/glob ulin mass ratioon 05-24-2021 Albumin/Globulin [Mass ratio] 0.9 {ratio} 0.9-2.4 [facility] Work Phone: Serum or plasma calcium awilda urement (mass/volume)on 05-24-2021 Calcium [Mass/Vol] 8.8 mg/dL 8.5-10.1 [facility] Work Phone: Serum or plasma cholesterol in HDL measurement (mass/volume)on 05-24-2021 Cholesterol in HDL [Mass/Vol] 49 mg/dL >40 [facility] Work Phone: Comment on above: The drugs N-Acetylcy steine and Metamizole may falsely depress this assay. Reference Range HDL <40 mg/dL Low HDL Cholesterol HDL >or= 60 mg/dL High HDL Cholesterol Serum or plasma cholesterol in VLDL measurement (mass/volume)on 05-24-2021 Cholesterol in VLDL [Mass/Vol] 26 mg/dL 5-40 [facility] Work Phone: Serum or plasma creatinine m easurement (mass/volume)on 05-24-2021 Creatinine [Mass/Vol] 1.12 mg/dL 0.70-1.30 [facility] Work Phone: Comment on above: The validity of the calculated GFR & GFRAA in patients over 70 years has not been determined. Clinical correlation is essential. Serum or plasma low density lipoprotein (LDL) cholesterol measurement (mass/volume)on 05-24-2021 Cholesterol in LDL [Mass/Vol] 101 mg/dL 0-130 [facility] Work Phone: Serum or plasma urea nitroge n measurement (mass/volume)on 05-24-2021 Urea nitrogen [Mass/Vol] 16 mg/dL 7-18 [facility] Work Phone: Thin prep Papanicolaou smear with manual screeningon 05-24-2021 Thin prep Papanicolaou smear with manual screening 26 U/L 15-37 [facility] Work Phone: Thin prep Papanicolaou smear with manual screening 6 5-15 [facility] Work Phone: Whole blood hemoglobin A1c/t otal hemoglobin ratio (mass fraction)on 05-24-2021 HbA1c (Bld) [Mass fraction] 5.8 % 3.8-5.6 [facility] Work Phone: Comment on above: Normal < 5.7 % Predi abetic 5.7 - 6.4 % Diabetic >or= 6.5 % Please note range changes. Absolute lymphocyte counton 05-12-2021 Lymphocytes Auto (Unsp spec) [#/Vol] 1.86 10*3/uL 0.83-4.51 [facility] Work Phone: Basophil percentageon 2021 Basophils/100 WBC (Bld) 0.8 % 0-1 [facility] Work Phone: Chloride [Moles/Vol] 109 mmol/L 98-107 [facility]: Eosinophils/100 WBC (Bld) 3.4 % 0-5 [facility] Work Phone: Glucose [Mass/Vol] 99 mg/dL 74-106 [facility] Work Phone: Neutrophils (Bld) [#/Vol] 3.7 10*3/uL 2.0-7.7 [facility] Work Phone: Neutrophils/100 WBC (Bld) 55.9 % 47-70 [facility] Work Phone: [phone] Potassium [Moles/Vol] 3.7 mmol/L 3.5-5.1 [facility]: Sodium [Moles/Vol] 140 mmol/L 136-145 [facility] Work Phone: WBC (Bld) [#/Vol] 6.6 10*3/uL 4.4-11.0 [facility] Work Phone: Blood erythrocytes count (nu mber/volume)on 05-12-2021 RBC (Bld) [#/Vol] 5.44 10*6/uL 4.6-6.2 [facility]: Blood hemoglobin measurement (mass/volume)on 05-12-2021 Hemoglobin (Bld) [Mass/Vol] 16.0 g/dL 13.0-16.5 [facility] Work Phone: Blood lymphocytes/100 leukoc yteson 05-12-2021 Lymphocytes/100 WBC (Bld) 28.4 % 19-41 [facility] Work Phone: Blood monocytes/100 leukocyt eson 05-12-2021 Monocytes/100 WBC (Bld) 11.0 % 0-10 [facility] Work Phone: Blood platelet mean volumeon 05-12-2021 Platelet mean volume (Bld) [Entitic vol] 10.8 fL 6.2-12.0 [facility] Work Phone: Determination of erythrocyte mean corpuscular volume (MCV)on 05-12-2021 MCV (RBC) [Entitic vol] 83.8 fL 80-94 [facility] Work Phone: Hematocrit Auto (Bld) [Volum e fraction]on 05-12-2021 Hematocrit (Bld) [Volume fraction] 45.6 % 40-54 [facility] Work Phone: Laboratory - Chemistry and C hemistry - challengeon 05-12-2021 CO2 [Moles/Vol] 27.0 mmol/L 21.0-32.0 [facility] Work Phone: Urea nitrogen/Creatinine [Mass ratio] 18.6 mg/mg 10-20 [facility] Work Phone: Laboratory - Hematology and Cell countson 05-12-2021 Erythrocyte distribution width (RBC) [Entitic vol] 37.8 fL 35.1-43.9 [facility] Work Phone: Erythrocyte distribution width (RBC) [Ratio] 12.5 % 11.6-14.6 [facility] Work Phone: Immature granulocytes/100 WBC (Bld) 0.500 % 0.0-0.9 [facility] Work Phone: Comment on above: IG% - Immature Granu locytes (promyelocytes, myelocytes and metamyelocytes) > 1% indicates that a LEFT SHIFT is Present. MCH (RBC) [Entitic mass] 29.4 pg 27.0-32.0 [facility] Work Phone: Nucleated RBC/100 WBC (Bld) [Ratio] 0 % 0-5 [facility] Work Phone: MCHC Auto (RBC) [Mass/Vol]on 05-12-2021 MCHC (RBC) [Mass/Vol] 35.1 g/dL 32-36 [facility] Work Phone: No Panel Informationon 05-12 Estimated Creatinine Clearance Calc 75.47 ml/min [facility] Work Phone: Estimated GFR (MDRD) Amer 86 mL/min >60 [facility] Work Phone: Comment on above: GFR Calc Estimated GFR (MDRD) Non-Af Amer 71 mL/min >60 [facility] Work Phone: Comment on above: Non- GFR Calc Platelets bldon 05-12-2021 Platelets (Bld) [#/Vol] 222 10*3/uL 150-450 [facility] Work Phone: Serum or plasma calcium awilda urement (mass/volume)on 05-12-2021 Calcium [Mass/Vol] 9.3 mg/dL 8.5-10.1 [facility] Work Phone: Serum or plasma creatinine m easurement (mass/volume)on 05-12-2021 Creatinine [Mass/Vol] 1.18 mg/dL 0.70-1.30 [facility] Work Phone: Comment on above: The validity of the calculated GFR & GFRAA in patients over 70 years has not been determined. Clinical correlation is essential. Serum or plasma urea nitroge n measurement (mass/volume)on 05-12-2021 Urea nitrogen [Mass/Vol] 22 mg/dL 7-18 [facility] Work Phone: Thin prep Papanicolaou smear with manual screeningon 05-12-2021 Thin prep Papanicolaou smear with manual screening 4 5-15 [facility] Work Phone: HFPon 10-14-2018 Bili Indirect 0.3 mg/dL [facility] ([place] Comment on above: Result Comment: Calc ulated by Rule Performed By: #### L IPID, [facility] #### [facility] [address] [place] [address] Albumin [Mass/Vol] 3.8 G/dL Normal 3.5-5.0 [facility] ([place]) Comment on above: Performed By: #### L IPID, [facility] #### [address] [address] Albumin/Globulin [Mass ratio] 1.2 {ratio} Normal 1.1-2.5 [facility] Comment on above: Performed By: #### L IPID, [facility] #### [address] [address] ALP [Catalytic activity/Vol] 80 U/L Normal 40-135 [facility] ([place]) Comment on above: Performed By: #### L IPID, [facility] #### [address] [address] ALT [Catalytic activity/Vol] 74 U/L High 10-35 [facility] ([place] Comment on above: Performed By: #### L IPID, [facility] #### [address] [address] AST [Catalytic activity/Vol] 34 U/L Normal 10-40 [facility] ([place] Comment on above: Performed By: #### L IPID, [facility] #### [address] [address] Bili Direct 0.1 mg/dL Normal 0.0-0.2 [facility] ([place] Comment on above: Performed By: #### L IPID, [facility] #### [address] [address] Bili Total 0.4 mg/dL Normal 0.2-1.0 [facility] ([place] Comment on above: Performed By: #### L IPID, [facility] #### [address] [address] Globulin (S) [Mass/Vol] 3.3 G/dL Normal [facility] ([place]) Comment on above: Performed By: #### L IPID, [facility] #### [address] [address] Protein [Mass/Vol] 7.1 G/dL Normal 6.4-8.2 [facility] ([place]) Comment on above: Performed By: #### L IPID, HFP #### [address] [address] LIPIDon 10-14-2018 Cholesterol [Mass/Vol] 209 mg/dL High 0-200 [facility] ([place]) Comment on above: Result Comment: Chol esterol Reference Interval: Less than 200 Desirable 200-239 Borderline high risk 240 and above High risk Performed By: #### L IPID, HFP #### [address] [address] Cholesterol in HDL [Mass/Vol] 32 mg/dL Low 40-60 [facility] ([place] Comment on above: Performed By: #### L IPID, [facility] #### [place] [address] Cholesterol in LDL [Mass/Vol] Not Valid Normal 0-130 [facility] ([place]) Comment on above: Result Comment: Trig lyceride >400 invalidates the calculated LDL. Performed By: #### L IPID, [facility] #### [place] [address] Triglyceride [Mass/Vol] 562 mg/dL High 0-150 [facility] ([place]) Comment on above: Result Comment: Trig lyceride Reference Interval: Less than 150 Normal 150-199 Borderline high risk 200-499 High risk 500 or higher Very high risk Performed By: #### L IPID, HFP #### [address] [address] HFPon 04-18-2018 Bili Indirect 0.5 mg/dL [facility] ([place]) Comment on above: Result Comment: Calc ulated by Rule Performed By: #### L IPID, HFP #### [address] [address] Albumin [Mass/Vol] 3.9 G/dL Normal 3.5-5.0 [facility] ([place]) Comment on above: Performed By: #### L IPID, HFP #### [address] [address] Albumin/Globulin [Mass ratio] 1.1 {ratio} Normal 1.1-2.5 [facility] ([place] Comment on above: Performed By: #### L IPID, HFP #### [address] [address] ALP [Catalytic activity/Vol] 70 U/L Normal 40-135 [facility] [place] Comment on above: Performed By: #### L IPID, HFP #### [address] [address] ALT [Catalytic activity/Vol] 85 U/L High 10-35 [facility] [place] Comment on above: Performed By: #### L IPID, HFP #### [address] [address] AST [Catalytic activity/Vol] 36 U/L Normal 10-40 [facility] [place] Comment on above: Performed By: #### L IPID, HFP #### [place] [address] Bili Direct 0.1 mg/dL Normal 0.0-0.2 [facility] [place] Comment on above: Performed By: #### L IPID, HFP #### [place] [address] Bili Total 0.6 mg/dL Normal 0.2-1.0 [facility] [place] Comment on above: Performed By: #### L IPID, HFP #### [place] [address] Globulin (S) [Mass/Vol] 3.4 G/dL Normal [facility] ([place] Comment on above: Performed By: #### L IPID, HFP #### [place] [address] Protein [Mass/Vol] 7.3 G/dL Normal 6.4-8.2 [facility] ([place]) Comment on above: Performed By: #### L IPID, HFP #### [place] [address] LIPIDon 04-18-2018 Cholesterol [Mass/Vol] 201 mg/dL High 0-200 [facility] ([place]) Comment on above: Result Comment: Chol esterol Reference Interval: Less than 200 Desirable 200-239 Borderline high risk 240 and above High risk Performed By: #### L IPID, HFP #### [address] [address] Cholesterol in HDL [Mass/Vol] 44 mg/dL Normal 40-60 [facility] [place] Comment on above: Performed By: #### L IPID, HFP #### [address] [address] Cholesterol in LDL [Mass/Vol] 122 mg/dL Normal 0-130 [facility] [place] Comment on above: Performed By: #### L IPID, HFP #### [address] [address] Triglyceride [Mass/Vol] 175 mg/dL High 0-150 [facility] [place] Comment [place] above: Result Comment: Trig lyceride Reference Interval: Less than 150 Normal 150-199 Borderline high risk 200-499 High risk 500 or higher Very high risk Performed By: #### L IPID, [facility] #### [address] [address] LIPIDon 01-07-2018 Cholesterol [Mass/Vol] 229 mg/dL High 0-200 [facility] ([place] Comment on above: Result Comment: Chol esterol Reference Interval: Less than 200 Desirable 200-239 Borderline high risk 240 and above High risk Performed By: #### L IPID #### [address] [address] Cholesterol in HDL [Mass/Vol] 37 mg/dL Low 40-60 [facility] [place] Comment on above: Performed By: #### L IPID #### [address] [address] Cholesterol in LDL [Mass/Vol] 151 mg/dL High 0-130 [facility] [place] Comment on above: Performed By: #### L IPID #### [address] [address] Triglyceride [Mass/Vol] 206 mg/dL High 0-150 [facility] [place] Comment on above: Result Comment: Trig lyceride Reference Interval: Less than 150 Normal 150-199 Borderline high risk 200-499 High risk 500 or higher Very high risk Performed By: #### L IPID #### [place] [address] Vital Signs Date Time Vital Sign Value Performing Clinician Geovani baptiste 09-21-2022 22:08-0400 Body height 172.[address] Connie Ortega Work Phone: [facility] 09-21-2022 22:08-0400 Body mass index (BMI) [Ratio] 27.8 kg/m2 Dr. Connie Ortega Work Phone: [facility] 09-21-2022 22:08-0400 Body temperature 97.3 [degF] Dr. Connie Ortega Work Phone: [facility] 09-21-2022 22:08-0400 Body weight 82.[address] Connie Ortega Work Phone: [facility] 09-21-2022 22:08-0400 Diastolic blood pressure 94 mm[Hg] Dr. Connie Ortega Work Phone: [facility] 09-21-2022 22:08-0400 Heart rate 82 /min Dr. Connie Ortega Work Phone: [facility] 09-21-2022 22:08-0400 Respiratory rate 18 /min Dr. Connie Ortega Work Phone: [facility] 09-21-2022 22:08-0400 SaO2% (BldA) [Mass fraction] 96 % Dr. Connie Ortega Work Phone: [facility] 09-21-2022 22:08-0400 Systolic blood pressure 136 mm[Hg] Dr. Connie Ortega Work Phone: [facility] 07-30-2022 15:53-0400 Body height 172.[address] Connie Ortega Work Phone: [facility] 07-30-2022 15:53-0400 Body mass index (BMI) [Ratio] 27.2 kg/m2 Dr. Connie Ortega Work Phone: [facility] 07-30-2022 15:53-0400 Body temperature 98.4 [degF] Dr. Connie Ortega Work Phone: [facility] 07-30-2022 15:53-0400 Body weight 81.[address] Connie Ortega Work Phone: [facility] 07-30-2022 15:53-0400 Diastolic blood pressure 87 mm[Hg] Dr. Connie Ortega Work Phone: [facility] 07-30-2022 15:53-0400 Heart rate 110 /min Dr. Connie Ortega Work Phone: [facility] 07-30-2022 15:53-0400 Respiratory rate 16 /min Dr. Connie Ortega Work Phone: [facility] 07-30-2022 15:53-0400 SaO2% (BldA) [Mass fraction] 97 % Dr. Connie Ortega Work Phone: [facility] 07-30-2022 15:53-0400 Systolic blood pressure 129 mm[Hg] Dr. Connie Ortega Work Phone: [facility] 01-14-2022 14:01-0500 Body height 172.[address] Connie Ortega Work Phone: [facility] Work Phone: 01-14-2022 14:01-0500 Body mass index (BMI) [Ratio] 28 kg/m2 Dr. Connie Ortega Work Phone: [facility] Work Phone: 01-14-2022 14:01-0500 Body temperature 97.2 [degF] Dr. Connie Ortega Work Phone: [facility] Work Phone: 01-14-2022 14:01-0500 Body weight 83.[address] Connie Ortega Work Phone: [facility] Work Phone: 01-14-2022 14:01-0500 Diastolic blood pressure 89 mm[Hg] Dr. Connie Ortega Work Phone: [facility] Work Phone: 01-14-2022 14:01-0500 Heart rate 72 /min Dr. Connie Ortega Work Phone: [facility] Work Phone: 01-14-2022 14:01-0500 Respiratory rate 18 /min Dr. Connie Ortega Work Phone: [facility] Work Phone: 01-14-2022 14:01-0500 SaO2% (BldA) [Mass fraction] 96 % Dr. Connie Ortega Work Phone: [facility] Work Phone: 01-14-2022 14:01-0500 Systolic blood pressure 139 mm[Hg] Dr. Connie Ortega Work Phone: [facility] Work Phone: 12-29-2021 15:03-0500 Body height 170.[address] Connie Ortega Work Phone: [facility] Work Phone: 12-25-2021 15:53-0400 Body temperature 97.4 [degF] Dr. Connie Ortega Work Phone: [facility] Work Phone: 12-25-2021 15:53-0400 Body weight 85.[address] Connie Ortega Work Phone: [facility] Work Phone: 12-25-2021 15:53-0400 Diastolic blood pressure 78 mm[Hg] Dr. Connie Ortega Work Phone: [facility] Work Phone: 12-25-2021 15:53-0400 Heart rate 78 /min Dr. Connie Ortega Work Phone: [facility] Work Phone: 12-25-2021 15:53-0400 Respiratory rate 18 /min Dr. Connie Ortega Work Phone: [facility] Work Phone: 12-25-2021 15:53-0400 SaO2% (BldA) [Mass fraction] 97 % Dr. Connie Ortega Work Phone: [facility] Work Phone: 12-25-2021 15:53-0400 Systolic blood pressure 117 mm[Hg] Dr. Connie Ortega Work Phone: [facility] Work Phone: 11-30-2021 17:35-0400 Body height 170.18 cm [facility] Work Phone: 11-30-2021 17:35-0400 Body mass index (BMI) [Ratio] 29.1 kg/m2 [facility] Work Phone: 11-30-2021 17:35-0400 Body temperature 98.2 [degF] [facility] Work Phone: 11-30-2021 17:35-0400 Body weight 84.3 kg [facility] Work Phone: 11-30-2021 17:35-0400 Diastolic blood pressure 90 mm[Hg] [facility] Work Phone: 11-30-2021 17:35-0400 Heart rate 95 /min [facility] Work Phone: 11-30-2021 17:35-0400 Respiratory rate 14 /min [facility] Work Phone: 11-30-2021 17:35-0400 SaO2% (BldA) [Mass fraction] 97 % [facility] Work Phone: 11-30-2021 17:35-0400 Systolic blood pressure 142 mm[Hg] [facility] Work Phone: 06-04-2021 15:26-0400 Body height 170.[address] Brayden Leon Work Phone: [facility] Work Phone: 06-04-2021 15:26-0400 Body mass index (BMI) [Ratio] 29.1 kg/m2 Dr. Brayden Leon Work Phone: [facility] Work Phone: 06-04-2021 15:26-0400 Body temperature 97.4 [degF] Dr. Brayden Leon Work Phone: [facility] Work Phone: 06-04-2021 15:26-0400 Body weight 84.[address] Brayden Leon Work Phone: [facility] Work Phone: 06-04-2021 15:26-0400 Diastolic blood pressure 82 mm[Hg] Dr. Brayden Leon Work Phone: [facility] Work Phone: 06-04-2021 15:26-0400 Heart rate 89 /min Dr. Brayden Leon Work Phone: [facility] Work Phone: 06-04-2021 15:26-0400 Respiratory rate 16 /min Dr. Brayden Leon Work Phone: [facility] Work Phone: 06-04-2021 15:26-0400 SaO2% (BldA) [Mass fraction] 98 % Dr. Brayden Leon Work Phone: [facility] Work Phone: 06-04-2021 15:26-0400 Systolic blood pressure 122 mm[Hg] Dr. Brayden Leon Work Phone: [facility] Work Phone: 05-13-2021 01:19-0400 Diastolic blood pressure 88 mm[Hg] [facility] Work Phone: 05-13-2021 01:19-0400 Heart rate 83 /min [facility] Work Phone: 05-13-2021 01:19-0400 Respiratory rate 20 /min [facility] Work Phone: 05-13-2021 01:19-0400 SaO2% (BldA) [Mass fraction] 99 % [facility] Work Phone: 05-13-2021 01:19-0400 Systolic blood pressure 127 mm[Hg] [facility] Work Phone: 05-12-2021 22:12-0400 Body height 170.18 cm [facility] Work Phone: 05-12-2021 22:12-0400 Body mass index (BMI) [Ratio] 27.8 kg/m2 [facility] Work Phone: 05-12-2021 22:12-0400 Body temperature 97.6 [degF] [facility] Work Phone: 05-12-2021 22:12-0400 Body weight 80.73 kg [facility] Work Phone: Encounters Encounter Date Encounter Type Care Provider Facility Start: 05-22-2024 End: 05-22-2024 ambulatory Connie Ortega Facility:[facility] [place] Start: 01-27-2024 ambulatory Connie Ortega Facility :[facility] [place] Start: 01-19-2024 End: 01-19-2024 ambulatory Amadeo Patel Facility:[facility] Start: 12-15-2023 End: 12-15-2023 Telephone encounter Amadeo Patel MD Work Phone: Pain Management Comment on above: Insurance Authorizat ion (MRI Denial ) Start: 11-15-2023 End: 11-15-2023 ambulatory AMADEO PATEL Facility:[facility] Start: 11-15-2023 End: 11-15-2023 Patient encounter procedure Amadeo Patel MD Work Phone: Pain Management Comment on above: Spinal stenosis of c ervical region (Primary Dx); Displacement of cervical intervertebral disc without myelopathy; Cervical myofascial pain syndrome Start: 11-11-2023 End: 11-11-2023 E-mail encounter from caregiver [facility] Start: 11-11-2023 End: 11-11-2023 Patient encounter procedure [facility] Comment on above: Instructions for you r upcoming appointment Start: 10-28-2023 End: 10-28-2023 ambulatory [facility] Facility:[facility] [place] Start: 10-23-2023 End: 10-23-2023 ambulatory [facility] Facility:[facility] Start: 01-30-2023 End: 01-30-2023 ambulatory [facility] Work Phone: Start: 01-30-2023 End: 01-30-2023 Patient encounter procedure [facility] Work Phone: Start: 10-21-2022 Telephone encounter Hudson Hernan Guevara on DO Work Phone: Neurology Comment on above: Received Outside [facility] ([facility]) Start: 09-21-2022 End: 09-22-2022 Emergency department patient visit Dr. Connie Ortega Work Phone: [facility] Work Phone: Start: 07-30-2022 End: 07-30-[address] Connie Ortega Work Phone: [facility] Start: 07-25-2022 End: 07-25-[address] Connie Ortega Work Phone: [facility] Work Phone: Start: 07-25-2022 End: 07-25-[address] Connie Ortega Work Phone: [facility] Start: 03-04-2022 End: 03-04-[address] Connie Ortega Work Phone: [facility] Work Phone: Start: 03-04-2022 End: 03-04-[address] Connie Ortega Work Phone: [facility] Start: 02-11-2022 End: 02-11-[address] Connie Ortega Work Phone: [facility] Work Phone: Start: 02-11-2022 End: 02-11-[address] Connie Ortega Work Phone: [facility] Start: 01-14-2022 End: 01-14-[address] Connie Ortega Work Phone: [facility] Start: 01-14-2022 Non-patient / Non-visit Dr. Savana Ortega Work Phone: [facility] Internal Medicine Start: 01-08-2022 End: 01-08-[address] Connie Ortega [facility] [place] Start: 12-29-2021 End: 12-29-[address] Connie Ortega Work Phone: [facility] Start: 12-25-2021 End: 12-25-[address] Connie Ortega Work Phone: [facility] Start: 12-20-2021 End: 12-20-[address] Connie Ortega Work Phone: [facility] Work Phone: Start: 12-20-2021 End: 12-20-[address] Connie Ortega Work Phone: [facility] Start: 11-30-2021 End: 11-30-2021 Emergency department patient visit [facility] Start: 08-29-2021 End: 08-29-[address] Brayden Leon Work Phone: [facility] Start: 06-04-2021 End: 06-04-[address] Brayden Leon Work Phone: [facility] Start: 05-24-2021 End: 05-24-2021 Patient encounter procedure [facility] Start: 05-12-2021 End: 05-13-2021 Emergency department patient visit [facility] Procedures Date Procedure Procedure Detail Performing Clinician Start: 02-11-2022 MRI of cervical spine Lee Ortega Work Phone: Start: 02-11-2022 MRI of brain with contrast Dr. Connie Ortega Work Phone: Start: 12-29-2021 X-ray of cervical spine Dr. Connie Ortega Work Phone: Start: 11-30-2021 X-ray of lumbar spin e, two or three views Dr. Connie Ortega Work Phone: Start: 05-13-2021 CT of head without contrast Start: 06-08-2005 Lipid 1996 panel - S linda or Plasma [facility] Provider Plan of Treatment Date Care Activity Detail Author Start: 11-15-2023 End: 11-15-2023 Patient encounter procedure 11/15/2023 3:30 PM EDT Office Visit Pain Management [address] [address] Amadeo Patel MD [address] [facility] [place], [place] [id number] NECK PAIN Pain Management Comment on above: NECK PAIN Start: 10-24-2023 Covid-19 Vaccine () Covid-19 Vaccine () [facility] Start: 10-24-2023 Covid-19 Vaccine ( season) Covid-19 Vaccine ( season) [facility] Start: 10-24-2023 Influenza vaccination Influenza Vacc ine (#1) [facility] Start: 2022 Diabetes Screening Diabetes Screenin g [facility] Start: 2022 Screening for malign ant neoplasm of colon [facility] Start: 10-23-2022 Influenza vaccination INFLUENZA (#1) [facility] Start: 02-22-2022 DEPRESSION ASSESSMENT DEPRESSION ASS ESSMENT [facility] Start: 12-29-2021 X-ray of cervical spine Cerv S pine 2 or 3 Views [facility] Work Phone: Start: 12-29-2021 XR Cervical spine 2 or 3 Views [facility] Work Phone: Start: 11-30-2021 X-ray of lumbar spin e, two or three views Lumbar Spine 2 or 3 Views [facility] Work Phone: Start: 11-30-2021 XR Lumbar spine 2 or 3 Views [facility] Work Phone: Start: 2012 Lipid panel Lipid Screening [facility] Start: 2012 LIPID SCREEN LIPID SCREEN [facility] Start: 1996 Hepatitis B Vaccine (1 of 3 - 19+ 3-dose series) Hepatitis B Vaccine (1 of 3 - 19+ 3-dose series) [facility] Start: 1996 Urine microalbumin profile [facility] Start: 11-07-1995 Anxiety Screening Anxiety Screening [facility] Start: 11-07-1995 Depression Screening Depression Scre ening [facility] Start: 11-07-1995 HEPATITIS C SCREENING HEPATITIS C [facility] Start: 11-07-1995 Hepatitis C screening Hepatitis C [facility] Start: 11-07-1995 HIV SCREENING HIV SCREENING [facility] Start: 11-07-1995 HIV screening HIV Screening [facility] Start: 05-06-1978 COVID-19 VACCINE (#1) COVID-19 VACCI NE (#1) [facility] Start: 1977 HEPATITIS B (1 of 3 - 3-dose series) HEPATITIS B (1 of 3 - 3-dose series) [facility] CBC W Auto Different ial panel - Blood [facility] Work Phone: Hemoglobin A1c/Hemoglobin.total in Blood [facility] Work Phone: Hemoglobin A1c/Hemoglobin.total in Blood [facility] Lipid 1995 panel - S linda or Plasma [facility] Work Phone: Lipid 1996 panel - S linda or Plasma [facility] MR Brain WO and W contrast IV [facility] Work Phone: MR Cervical spine [facility] Work Phone: End: 12-14-2024 MR Cervical spine WO contrast MRI CERVICAL SPINE WO IVCON Radiology Routine Spinal stenosis of cervical region 1 Occurrences starting 11/15/2023 until 12/14/2024 [facility] Work Phone: Comment on above: 1 Occurrences starti ng 11/15/2023 until 12/14/2024 Patient Education [facility] Work Phone: Patient referral [facility] Work Phone: Prostate specific antigen measurement [facility] Work Phone: T4 free measurement [facility] Work Phone: Testosterone measurement [facility] Work Phone: Thyroid stimulating hormone measurement [facility] Work Phone: Triiodothyronine, fr ee measurement [facility] Work Phone: Vitamin D, 25-hydrox y measurement [facility] Work Phone: Vitamin D, 25-hydrox y measurement [facility] Immunizations Immunization Date Immunization Notes Care Provider Alvarez colorado 09-06-2012 hepatitis A vaccine, unspecified formulation Hudson Velazquez DO Work Phone: [facility] Work Phone: 12-12-2011 influenza virus vaccine, unspecified formulation Hudson Velazquez DO Work Phone: [facility] Work Phone: 12-19-2009 influenza virus vaccine, unspecified formulation Hudson Velazquez DO Work Phone: [facility] Work Phone: Payers Date Payer Category Payer Self-pay [id number] 2020 [facility] Health [facility] RE[facility] [id number] 2020-Present [phone] [address] [place] [address] PPO [id number] 2020 Unknown [id number] Private Health Insurance [id number] Unknown [id number] Unknown [id number] Unknown [id number] Unknown [id number] Unknown [id number] Unknown [id number] Social History Date Type Detail Facility Start: 05-12-2021 End: 09-22-2022 Tobacco smoking status NHIS Unknown if ever smoked [facility] Start: 09-15-2019 None [facility] Start: 09-15-2019 Spouse/ Signif icant Other [facility] Start: 1975 Sex Assigned At Male [facility] Start: 04-05-2006 Alcohol intake 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 alcohol (finding) [facility] Start: 07-18-2020 End: 01-29-2023 History of Social function [facility] Start: 07-18-2020 End: 01-29-2023 Area Deprivation Index [facility] National Score (1-10 0), lower number is lower risk Not on file [facility] Start: 1975 Sex Assigned At Not on file [facility] Goals Date Patient Goal Desired Activity /State Mental Status Date Assessment Result Facility 09-21-2022 Cognitive function Level Of Cons ciousness Awake;Alert;Appropriate;Follow s Commands [facility] Work Phone: 05-12-2021 Cognitive function Level Of Cons ciousness Awake;Alert;Appropriate;Follow s Commands [facility] Work Phone: Clinical Notes 10-21-2022 to 12-15-2023 Telephone Encounter - Glenna Moses RN - 12/15/2023 10:26 AM EDTTelephone Encounter - Glenna Moses RN - 12/15/2023 10:26 AM Amadeo Mcclellan MD - 11/15/2023 3:21 PM EDT Note Date & Type Note Facility 12-15-2023 Telephone encounter Note Received voicemail on 12/15/2023 at 0949: Denzel, my name is Zak Helm. [address] Amadeo Patel's patient. He ordered an MRI of my neck, and it looks like the insurance denied it. They asked me to call back and see what the office and Dr. Patel is going to do or next steps. That's why I'm calling. Please give me a call back - [phone]. Thanks. Office to await MRI denial email from Pre-Access Denials Support Team. [facility] 12-15-2023 Miscellaneous Notes Received voicemail on 12/15/2023 at 0949: Denzel, my name is Zak Helm. [address] Amadeo Patel's patient. He ordered an MRI of my neck, and it looks like the insurance denied it. They asked me to call back and see what the office and Dr. Patel is going to do or next steps. That's why I'm calling. Please give me a call back - [phone]. Thanks. Office to await MRI denial email from Pre-Access Denials Support Team. documented in this encounter [facility] 11-15-2023 Note HNO ID: [id number] Author: AMADEO PATEL MD Service: ? Author Type: Physician Type: Progress Notes Filed: 12/15/2023 07:40 Note Text: [facility] Date: November 15, 2023 - 3:21 PM Zak Helm is self referred. Chief Complaint: neck pain SUBJECTIVE: Zak Helm, is a 48 year old male who presents with neck pain. The pain started 3 years ago, with no known injury or trauma. The pain onset was gradual. The patient states that the current pain is persistent. His pain is located in the bilateral posterior cervical region and does not radiate.. // The pain is described as aching, pressure, sharp, and stiff. The pain intensity is rated 8. The pain is exacerbated by movement or fatigued and relieved by medication, reposition, distractions, and massage. Currently, the symptoms do not interfere with activities of daily living (ADLs). 100% pain in spine vs 0% (radiating) pain in the extremity. Litigation: No. Worker's Compensation: No. Prior pain treatment has included: Medication(s): ibuprofen, Tylenol Physical therapy: [facility] in [place], [place] Chiropractic: Last year Acupuncture: 1 month ago with no relief. Injection(s): Cervical facet injections with Dr. Ruiz in [place] with no relief. ALLERGIES Allergen Reactions Celexa [Citalopram] Rash Environmental [Othe* Current Medications: Pain medications reviewed and reconciled in the medication list: Yes. Current Outpatient Medications Medication Sig mometasone furoate(NASONEX 50 MCG/ACTUATION SPRAY) TWO SPRAYS EACH NOSTRIL DAILY isoniazid 300 mg ORAL Tab Take one(1) tablet daily. amitriptyline 50 mg ORAL Tab Take one(1) tablet daily at bedtime. No current facility-administered medications for this visit. No past medical history on file. No past surgical history on file. FAMILY HISTORY Problem Relation Age of Onset Diabetes Father Diabetes Maternal Grandmother Hypertension Brother Social History: Alcohol Use: No Tobacco Use: Never Drug Use: No Employer And Job Title: None on file Years Of Education Completed: Not specified Marital Status: REVIEW OF SYSTEMS: Constitutional: (-) Fever (-) Night Sweats (-) Weight Gain (-) Weight Loss (-) Fatigue Cardiovascular: (-) Chest Pain (-) Palpitations (-) Lightheadedness (-) Swelling of Ankles (-) Hx Heart Surgery Respiratory: (-) Shortness of Breath (-) Cough (-) Wheezing (-) Snoring Gastrointestinal: (-) Incontinence (-) Abdominal Pain (-) Diarrhea (-) Constipation (-) Nausea/Vomiting (-) Heart Burn Endocrine: (-) Thyroid Disorder (-) Diabetes Hematologic: (-) Prolonged Bleeding (-) Easy Bruising Genitourinary: (-) Incontinence (-) Frequency (-) Urinary Urgency Skin: (-) Rashes (-) Itching (-) Other Lesions Neurologic: (+) Headache (-) Double Vision (-) Confusion (-) Paralysis (-) Vertigo (-) Syncope Psychiatric: (-) Depression (-) Anxiety (-) Delusions (-) Hallucinations (-) Suicidal Thoughts OARRS Report reviewed: Yes Narcotic Agreement reviewed and signed?: N/A Baseline Urine Toxicology obtained: N/A Urine Panel: No results found for: UQCANN, UQBNZL, EGS1VXO, UQAMPH, UQMAMP, UQBUPRE, UQNORBUP, UQMTHD, UQEDDP, UQTRAM, UQDTRM, UQFNTL, UQNFTL, UQCODE, UQMORP, UQDCDN, UQHCOD, UQOXYC, UQHMOR, UQOXYM, UQCREA, UQPH, UQSPGR, UQOXID, UQSPQ The pain panel was N/A OBJECTIVE: Performed in conjunction with observation. The patient was alert and oriented x3. The patient was in no acute distress. Lungs: Clear, negative for dyspnea or distress. CVR: Negative for SOB or peripheral edema. Neck: Supple. The range of motion was intact. Bilateral paracervical tenderness with extension to the posterior occiput area along the greater occipital nerve and upper thoracic levels. Cervical facet loading: Negative Spurling's: Negative Back: Range of motion of the trunk was intact. Negative focal tenderness. Extremities: no reported edema or erythema. Motor: Negative focal deficits Sensory: Intact to light touch bilateral upper extremities Gait: Within normal limits Medical record and diagnostic tests reviewed for today's visit: The [facility] EMR was reviewed during the visit IMAGING STUDIES: No new imaging studies were reviewed during this office visit. ASSESSMENT: (M48.02) Spinal stenosis of cervical region (primary encounter diagnosis) (M50.20) Displacement of cervical intervertebral disc without myelopathy (M79.18) Cervical myofascial pain syndrome Discussion: A discussion was entertained regarding multicomponent pain source. Discussed conservative options and focus on improvement of function and the concerns of ongoing or developing chronic pain. Discussed the rationale behind interventional approach and how it can facilitate improvement of p (more content not included)... [facility] 11-15-2023 History of Presen t illness Narrative [facility] Date: November 15, 2023 - 3:21 PM Zak Helm is self referred. Chief Complaint: neck pain SUBJECTIVE: Zak Helm, is a 48 year old male who presents with neck pain. The pain started 3 years ago, with no known injury or trauma. The pain onset was gradual. The patient states that the current pain is persistent. His pain is located in the bilateral posterior cervical region and does not radiate.. // The pain is described as aching, pressure, sharp, and stiff. The pain intensity is rated 8. The pain is exacerbated by movement or fatigued and relieved by medication, reposition, distractions, and massage. Currently, the symptoms do not interfere with activities of daily living (ADLs). 100% pain in spine vs 0% (radiating) pain in the extremity. Litigation: No. Worker's Compensation: No. Prior pain treatment has included: Medication(s): ibuprofen, Tylenol Physical therapy: [facility] in [place], [place] Chiropractic: Last year Acupuncture: 1 month ago with no relief. Injection(s): Cervical facet injections with Dr. Ruiz in [place] with no relief. ALLERGIES Allergen Reactions Celexa [Citalopram] Rash Environmental [Othe* Current Medications: Pain medications reviewed and reconciled in the medication list: Yes. Current Outpatient Medications Medication Sig mometasone furoate(NASONEX 50 MCG/ACTUATION SPRAY) TWO SPRAYS EACH NOSTRIL DAILY isoniazid 300 mg ORAL Tab Take one(1) tablet daily. amitriptyline 50 mg ORAL Tab Take one(1) tablet daily at bedtime. No current facility-administered medications for this visit. No past medical history on file. No past surgical history on file. FAMILY HISTORY Problem Relation Age of Onset Diabetes Father Diabetes Maternal Grandmother Hypertension Brother Social History: Alcohol Use: No Tobacco Use: Never Drug Use: No Employer And Job Title: None on file Years Of Education Completed: Not specified Marital Status: REVIEW OF SYSTEMS: Constitutional: (-) Fever (-) Night Sweats (-) Weight Gain (-) Weight Loss (-) Fatigue Cardiovascular: (-) Chest Pain (-) Palpitations (-) Lightheadedness (-) Swelling of Ankles (-) Hx Heart Surgery Respiratory: (-) Shortness of Breath (-) Cough (-) Wheezing (-) Snoring Gastrointestinal: (-) Incontinence (-) Abdominal Pain (-) Diarrhea (-) Constipation (-) Nausea/Vomiting (-) Heart Burn Endocrine: (-) Thyroid Disorder (-) Diabetes Hematologic: (-) Prolonged Bleeding (-) Easy Bruising Genitourinary: (-) Incontinence (-) Frequency (-) Urinary Urgency Skin: (-) Rashes (-) Itching (-) Other Lesions Neurologic: (+) Headache (-) Double Vision (-) Confusion (-) Paralysis (-) Vertigo (-) Syncope Psychiatric: (-) Depression (-) Anxiety (-) Delusions (-) Hallucinations (-) Suicidal Thoughts OARRS Report reviewed: Yes Narcotic Agreement reviewed and signed?: N/A Baseline Urine Toxicology obtained: N/A Urine Panel: No results found for: UQCANN, UQLESLEYZL, MXC5VGG, UQAMPH, UQMAMP, UQBUPRE, UQNORBUP, UQMTHD, UQEDDP, UQTRAM, UQDTRM, UQFNTL, UQNFTL, UQCODE, UQMORP, UQDCDN, UQHCOD, UQOXYC, UQHMOR, UQOXYM, UQCREA, UQPH, UQSPGR, UQOXID, UQSPQ The pain panel was N/A OBJECTIVE: Performed in conjunction with observation. The patient was alert and oriented x3. The patient was in no acute distress. Lungs: Clear, negative for dyspnea or distress. CVR: Negative for SOB or peripheral edema. Neck: Supple. The range of motion was intact. Bilateral paracervical tenderness with extension to the posterior occiput area along the greater occipital nerve and upper thoracic levels. Cervical facet loading: Negative Spurling's: Negative Back: Range of motion of the trunk was intact. Negative focal tenderness. Extremities: no reported edema or erythema. Motor: Negative focal deficits Sensory: Intact to light touch bilateral upper extremities Gait: Within normal limits Medical record and diagnostic tests reviewed for today's visit: The [facility] EMR was reviewed during the visit IMAGING STUDIES: No new imaging studies were reviewed during this office visit. ASSESSMENT: (M48.02) Spinal stenosis of cervical region (primary encounter diagnosis) (M50.20) Displacement of cervical intervertebral disc without myelopathy (M79.18) Cervical myofascial pain syndrome Discussion: A discussion was entertained regarding multicomponent pain source. Discussed conservative options and focus on improvement of function and the concerns of ongoing or developing chronic pain. Discussed the rationale behind interventional approach and how it can facilitate improvement of pain but also diagnostic information that procedures provide. custodial use of any opioid pain medication is discouraged in chronic benign pain. PLAN: 1. MRI from 2021 was reviewed. He did have C5-6 cervical disc displacement. Patient has gone through physical therapy as well as multiple injections of the cervical spine without improvement. Recommend repeating the cervical spine MRI. 2. No interventional procedures indicated 3. No new medication was prescribed. 4. Counseled patient regarding the importance of activity modification and exercise. 5. Follow up: We will contact with results of the imaging studies and we will provide further recommendation at that time. The above plan and management options were discussed with patient. The patient is in agreement with the above and verbalized understanding. I have discussed and confirmed the above treatment plan with the patient and I have reviewed the nurses notes and I am aware of the family/social history. I have confirmed ROS findings. Amadeo Patel MD 1. This document has been created with the use of voice recognition technology. It may contain inaccuracies: (e.g. misspellings, inaccurate syntax or word sense) that have escaped review. 2. The nurse practitioner, nursing staff and medical assistants are a major part of YOUR TREATMENT TEAM and will be handling your phone calls and inquiries, if any. Unless explicitly told otherwise at the time of your office visit, your study results and ensuing treatment plans will be discussed during your follow-up appointment. If you do not have a follow-up appointment and wish to discuss any issues, please set up an appointment. 3. It is my practice to not fill disability or any other insurance-related forms/documentation. All of the office notes, study results, and other pertinent documentation generated as part of your evaluation will be available to you and to your Primary Care Physician (PCP). Use of this material to complete such forms will be at the discretion of your PCP/referring physician. November 15, 2023 cc: No referring provider defined for this encounter. Phone: N/A Fax: Results of consultation to be transmitted via electronic medical record for those providers who practice within [facility] or with access to [employer] via MD Connect, or via letter. documented in this encounter [facility] 10-21-2022 Miscellaneous Notes Received faxed report of medical records done at [facility] on 09/24/2022. Uploaded via [employer], will be available in [employer] for review shortly. documented in this encounter [facility] Evaluation note No assessment inform ation available [facility] Work Phone: Evaluation note Diagnosis Onset Date Cervicogenic headache acute High cholesterol acute Hypertriglyceridemia, familial acute Sleep apnea in adult acute [facility] Work Phone: Evaluation note* Diagnosis Onset Date Resolution Status Cervicogenic headache acute High cholesterol acute Hypertriglyceridemia, familial acute Loss of libido acute Segmental and somatic dysfunction of cervical region acute Sleep apnea in adult acute Tinnitus acute Vitamin D deficiency acute Cervicogenic headache acute HNP (herniated nucleus pulposus), cervical acute [facility] Work Phone: Evaluation note* Diagnosis Onset Date Resolution Status Cervicogenic headache acute High cholesterol acute Hypertriglyceridemia, familial acute Loss of libido acute Segmental and somatic dysfunction of cervical region acute Sleep apnea in adult acute Tinnitus acute Vitamin D deficiency acute Cervicogenic headache acute HNP (herniated nucleus pulposus), cervical acute SG (obstructive sleep apnea) acute [facility] Work Phone: Evaluation note* Diagnosis Onset Date Resolution Status Elevated hemoglobin A1c acut e Hypertriglyceridemia, familial acute Insulin resistance acute SG (obstructive sleep apnea) acute Seasonal allergies acute [facility] Work Phone: Evaluation note* Diagnosis Spinal stenosis of cervical region- Primary Spinal stenosis in cervical region Displacement of cervical intervertebral disc without myelopathy Cervical myofascial pain syndrome Mylagia and myositis, unspecified documented in this encounter [facility] Discharge instructions Additional Instructions Continue to ice, perform gentle stretching. Use naproxen, Flexeril for your back pain. Use the eyedrops for 7 days every 4 hours while awake.[facility] Work Phone: Hospital Discharge instructions Additional Instructions Please follow-up with neurology for repeat evaluation of your recurrent headaches. If you have any further concerns or worsening of symptoms please return [facility] the [facility] Summary Purpose Family History No Family History Records Found Relationship Condition Age at Onset Recorded Date/T lazara father Diabetes mellitus Unknown Myocardial infarction 80 mother Hyperlipidemia Unknown Advance Directives No Advanced Directives Records Found Advance Directive Response Recorded Date/ Time Living Will No May 12, 2021 10:37pm Power of Feather Maker No May 12 10:37pm Advance Directive Response Recorded Date/ Time Living Will No November 30 5:53pm Power of Feather Maker No November 30 022 5:53pm Advance Directive Response Recorded Date/ Time Living Will No November 30 2 4:53pm Power of Feather Maker No November 30 022 4:53pm Advance Directive Response Recorded Date/ Time Living Will No September 21, 2022 11:50pm Power of Feather Maker No September 21 3 11:50pm Advance Directive Response Recorded Date/ Time Living Will No September 21, 2022 10:50pm Power of Feather Maker No September 21 3 10:50pm Chief Complaint and Reason for Visit Chief Complaint high bp Chief Complaint high bp EORDER Chief Complaint high bp EORDER 6 MO FU sleep apnea; 7/7 LM Reason for Visit Cervicogenic headach e High cholesterol Hypertriglyceridemia, familial Sleep apnea in adult Chief Complaint sleep apnea; 7/7 LM HIP Chief Complaint HIP E-ORDER 6 M FU CERVICAL SPINE Rm 6 xray Reason for Visit Cervicogenic headach e High cholesterol Hypertriglyceridemia, familial Loss of libido Segmental and somatic dysfunction of cervical region Sleep apnea in adult Tinnitus Vitamin D deficiency Cervicogenic headache HNP (herniated nucleus pulposus), cervical Chief Complaint HIP E-ORDER 6 M FU CERVICAL SPINE Rm 6 xray Amb Documentation sleep problems NECK PAIN, HEAD NECK PRESSURE Reason for Visit Cervicogenic headach e High cholesterol Hypertriglyceridemia, familial Loss of libido Segmental and somatic dysfunction of cervical region Sleep apnea in adult Tinnitus Vitamin D deficiency Cervicogenic headache HNP (herniated nucleus pulposus), cervical SG (obstructive sleep apnea) Chief Complaint HIP E-ORDER 6 M FU CERVICAL SPINE Rm 6 xray Amb Documentation sleep problems NECK PAIN, HEAD NECK PRESSURE SG; AUTO CPAP *INVENTORY TAGGED Reason for Visit Cervicogenic headach e High cholesterol Hypertriglyceridemia, familial Loss of libido Segmental and somatic dysfunction of cervical region Sleep apnea in adult Tinnitus Vitamin D deficiency Cervicogenic headache HNP (herniated nucleus pulposus), cervical SG (obstructive sleep apnea) Chief Complaint EORDRS 4 M FU Reason for Visit Elevated hemoglobin A1c Hypertriglyceridemia, familial Insulin resistance SG (obstructive sleep apnea) Seasonal allergies Chief Complaint EORDRS 4 M FU Headache Reason for Visit Elevated hemoglobin A1c Hypertriglyceridemia, familial Insulin resistance SG (obstructive sleep apnea) Seasonal allergies Chief Complaint eorder Reason for Referral Specialty Diagnoses / Procedures Referred By Contac t Referred To Contact MR IMAGING Diagnoses Spinal stenosis of cervical region Procedures MRI CERVICAL SPINE WO IVCON MRI SPINAL CANAL CERVICAL W/O CONTRAST MATRL Amadeo Patel MD [address] [facility] [id number] [place] [address] [place] [address] Referral ID Status Reason Start Date Expiration Date Visits Requested Visits Authorized [id number] New Request Auto-Generat ed Referral 11/15/2023 12/14/2024 1 1 Additional Source Comments (unrecognized sect ion and content) No Status Records FoundNo Status Records FoundNo Status Records Found INFORMATION SOURCE (unrecogn ized section and content) DATE CREATED AUTHOR 11/10/2018 [facility] ([place]) DATE CREATED AUTHOR AUTHOR'S ORGANIZ ATION 12/20/2023 [facility] DATE CREATED AUTHOR AUTHOR'S ORGANIZ ATION 05/23/2024 [facility] Care Teams (unrecognized sec tion and content) Team Status: Active Member Role Status Dates Dr. Atul Horne MD Family Provider Active Dr. Connie Ortega MD Primary Care Provider Active Team Status: Inactive Member Role Status Dates Dr. Connie Ortega MD Primary Care Provider, Attendi ng Provider Active Team Status: Inactive Member Role Status Dates Dr. Connie Ortega MD Primary Care Pro vider, Attending Provider, Referring Provider Active Team Status: Inactive Member Role Status Dates Dr. Connie Ortega MD Primary Care Provider Active Dr. Clarence Prasad , Emergency Provider Active [employer] Relationship Specialty Start Date End Date Vick M[address]oy [address] [place], [place] [id number] Referring Ophthalmology 09/29/22 [employer] Relationship Specialty Start Date End Date Vick Mccoy [address] [place], [place] [id number] Referring Ophthalmology 09/29/22 [employer] Relationship Specialty Start Date End Date Vick Mccoy [address] [place] [address] Referring Ophthalmology 09/29/22 [employer] Relationship Specialty Start Date End Date Vick Mccoy [address] [place] [address] Referring Ophthalmology 09/29/22 Source Comments (unrecognize d section and content) In the event this informatio n is protected by the Federal Confidentiality of Alcohol and Drug Abuse Patient Records regulations: The Federal rules restrict any use of the information to criminally investigate or prosecute any alcohol or drug abuse patient.[facility] the event this information is protected by the Federal Confidentiality of Alcohol and Drug Abuse Patient Records regulations: The Federal rules restrict any use of the information to criminally investigate or prosecute any alcohol or drug abuse patient.[facility] the event this information is protected by the Federal Confidentiality of Alcohol and Drug Abuse Patient Records regulations: The Federal rules restrict any use of the information to criminally investigate or prosecute any alcohol or drug abuse patient.[facility] the event this information is protected by the Federal Confidentiality of Alcohol and Drug Abuse Patient Records regulations: The Federal rules restrict any use of the information to criminally investigate or prosecute any alcohol or drug abuse patient.[facility] Reason for Visit (unrecogniz ed section and content) Reason Comments Received Outside Medical Records [facility] Reason Comments Neck Pain Reason Comments Insurance Authorization MRI Denial FOR RECORDS PERTAINING TO PATIENTS WHO ARE OR HAVE BEEN ENROLLED IN A CHEMICAL DEPENDENCY/SUBSTANCEABUSE PROGRAM, SOME INFORMATION MAY BE OMITTED. This clinical summary was aggregated from multiple sources. Caution should be exercised in using it in the provision of clinical care. This summary normalizes information from multiple sources, and as a consequence, information in this document may materially change the coding, format and clinical context of patient data. In addition, data may be omitted in some cases. CLINICAL DECISIONS SHOULD BE BASED ON THE PRIMARY CLINICAL RECORDS. [employer] provides no warranty or guarantee of the accuracy or completeness of information in this document.
[2024-08-05 08:29] LABS: Absolute Lymphocyte Count 1.76 X10^3/uL (0.83-4.51); Absolute Neutrophil Count 2.8 X10^3/uL (2.0-7.7); Basophil# 0.04 X10^3/uL; Basophil% 0.7 % (0-1); Eosinophil# 0.23 X10^3/uL; Eosinophils% 4.3 % (0-5); Hematocrit 42.7 % (40-54); Hemoglobin 14.5 g/dL (13.0-16.5); Lymphocyte # 1.76 X10^3/ul (0.83-4.51); Lymphocyte % 32.8 % (19-41); Mean Corpuscular Hgb 28.5 pg (27.0-32.0); Mean Corpuscular Volume 83.9 fL (80-94); Mean Platelet Vol. 10.5 fl (6.2-12.0); Monocyte# 0.49 X10^3/uL; Monocyte% 9.1 % (0-10); NRBC Flagged by Analyzer 0 % (0-5); Neutrophil # 2.83 X10^3/uL (2.7-7.7); Neutrophil % 52.7 % (47-70); Platelet Count 209 K/mm3 (150-450); RBC Distribution Width SD 39.7 fl (35.1-43.9); Red Blood Count 5.09 M/mm3 (4.6-6.2); White Blood Count 5.4 K/mm3 (4.4-11.0)
[2024-08-05 09:40] LABS: ALB/GLOB Ratio 1.5 RATIO (0.9-2.4); AST(SGOT) 33 U/L (<=37); Alanine Aminotransfer ALT/SGPT 54 U/L (<=46); Albumin, Serum 4.2 g/dL (3.5-5.0); Alkaline Phosphatase 78 U/L (40-129); Anion Gap 11 (5-15); BUN 16 mg/dL (4-19); BUN/Creat Ratio 16.2 RATIO (10-20); Carbon Dioxide 20.1 mmol/L (21.0-32.0); Chloride 108 mmol/L (98-108); Cholesterol 251 mg/dL (<=200); EST Glomerular Filtration Rate 94 (>60); Free T3 3.3 pg/mL (2.18-3.98); Globulin 2.9 g/dL (2.2-4.2); Glucose 113 mg/dL (70-99); High Density Lipoprotein 38 mg/dL; Low Density Lipoprotein Calc. 165 mg/dL; Potassium 4.1 mmol/L (3.3-5.1); Protein, Total 7.1 g/dL (5.9-8.4); Sodium Level 139 mmol/L (133-145); Total Bilirubin 0.31 mg/dL (0.00-1.30); Triglycerides 239 mg/dL; Very Low Density Lipoprotein 48 mg/dL (5-40); Vitamin D,25 Hydroxy 21.7 ng/mL (30-100); cholesterol:hdl ratio screen 6.61
== END | disposition home or self-care (01) ==
LOC: LAB 08:03
PROVIDERS: PCP Internal Medicine; Referring Provider Internal Medicine; Visit Provider Internal Medicine
DX: Z13.220 Encounter for screening for lipoid disorders (principal); E78.1 Pure hyperglyceridemia
CPT/HCPCS: 36415; 80053; 80061; 82306; 83036; 84439; 84443; 84481; 85025

== ENCOUNTER → 2024-08-09 | Outpatient (CLI) | payer OTHER, SELFPAY ==
[2024-08-09 16:02] LABS: Erythrocyte Sedimentation Rate 6 mm/hr (0-20)
[2024-08-09 16:40] LABS: CRP < 3.00 mg/L (0.0-3.0); Rheumatoid Factor < 10.0 IU/mL (<15)
[2024-08-11 09:08] LABS: ANTINUCLEAR ANTIBODIES DIRECT Negative (Negative); Anti-Centromere B Ab <0.2 AI (0.0-0.9); Anti-Chromatin <0.2 AI (0.0-0.9); Anti-Jo <0.2 AI (0.0-0.9); Anti-Scleroderma-70 AB <0.2 AI (0.0-0.9); Anti-dsDNA Ab <1 IU/mL (0-9); RNP Ab <0.2 AI (0.0-0.9); SJOGREN'S Anti-SS-A test < 0.2 AI (0.0-0.9); SJOGREN'S Anti-SS-B test < 0.2 AI (0.0-0.9); Smith Ab <0.2 AI (0.0-0.9)
== END | disposition home or self-care (01) ==
LOC: BIMLAB 12:22
PROVIDERS: PCP Internal Medicine; Referring Provider Internal Medicine; Visit Provider Internal Medicine
DX: M54.2 Cervicalgia (principal); G89.29 Other chronic pain
CPT/HCPCS: 36415; 81374; 85652; 86038; 86140; 86200; 86225; 86235; 86431

== ENCOUNTER → 2024-09-26 | Outpatient (CLI) | payer OTHER, SELFPAY ==
[2024-09-23 10:10] LABS: Hematocrit 44.3 % (40-54); Hemoglobin 15.2 g/dL (13.0-16.5); Immature Granulocytes Count 0.050 X10^3/uL (0.0-0.0); Mean Corp Hgb Conc 34.3 g/dL (32-36); Mean Corpuscular Volume 83.4 fL (80-94); Mean Platelet Vol. 10.9 fl (6.2-12.0); NRBC Flagged by Analyzer 0 % (0-5); Platelet Count 229 K/mm3 (150-450); RBC Distribution Width CV 13.1 % (11.6-14.6); RBC Distribution Width SD 39.5 fl (35.1-43.9); Red Blood Count 5.31 M/mm3 (4.6-6.2); White Blood Count 5.6 K/mm3 (4.4-11.0)
[2024-09-23 10:33] LABS: Anion Gap 12 (5-15); BUN 14 mg/dL (4-19); BUN/Creat Ratio 14.7 RATIO (10-20); Calcium,Total 9.2 mg/dL (7.6-11.0); Carbon Dioxide 21.5 mmol/L (21.0-32.0); Chloride 105 mmol/L (98-108); Glucose 102 mg/dL (70-99); Potassium 3.9 mmol/L (3.3-5.1)
--- OUTSIDE RECORDS SUMMARY | 2024-09-26 10:21 | XMS RPT_ITS | CCD ---
Author Organization [facility] Care Team Providers Care Educational Director Name Role Phone Dr. Brayden Leon Referring Provider Dr. Connie Ortega Primary Care Provider Dr. Connie Ortega Attending Provider [phone] Dr. Connie Ortega Primary Care Provider Dr. Connie Ortega Attending Provider [phone] Dr. Connie Ortega Referring Provider [phone] Dr. Miki Vu Attending Provider [phone] Keo Pritchett Attending Provider [phone] Cristobal Chery Attending Provider Unavailable Salazar DIRECTOR OF RESTAURANT, DIRECTOR OF RESTAURANT-C Mary Attending Provider [phone] Dr. Connie Ortega Primary Care Provider Dr. Connie Ortega Attending Provider [phone] Dr. Connie Ortega Primary Care Provider Dr. Connie Ortega Attending Provider [phone] Vick Mccoy Unavailable AMADEO PATEL Attending Unavailable Dr. Connie Ortega MD Primary Care Provider [phone] Dr. Connie Ortega MD Referring Provider Stan Sandoval Attending Provider Dr. Connie Ortega MD Attending Provider Dr. Tonia Avila MD Primary Care Provider [phone] Dr. Tonia Avila MD Attending Provider Dr. Tonia Avila MD Referring Provider Austin, Tonia Referring Unavailable Laurelton, Tonia Primary Care Unavailable Laurelton, Tonia Attending Unavailable Miya, Connie Referring Unavailable Austin, Tonia Primary Care Unavailable [place]urelton, Tonia Attending Unavailable Miya, Connie Primary Care Unavailable Miya, Connie Attending Unavailable Miya, Connie Primary Care Unavailable Miya, Connie Attending Unavailable [place]ton, Tonia Referring Unavailable [place], Tonia Primary Care Unavailable Austin, Tonia Attending Unavailable Miya, Connie Referring Unavailable Stan Sandoval Attending Unavailable Miya, Connie Primary Care Unavailable Miya, Connie Referring Unavailable Miya, Connie Primary Care Unavailable Miya, Connie Attending Unavailable Miya, Connie Primary Care Unavailable Amadeo Patel Attending Unavailable Amadeo Patel Referring Unavailable Miya, Connie Referring Unavailable Miya, Connie Attending Unavailable Austin, Tonia Primary Care Unavailable Allergies Allergy Classification Reported Allergen(s) Allergy Type Date of Onset Reaction(s) Facility (18 sources) Citalopram; Translations: [CITALOPRAM] Drug Allergy 1 Rash [facility] (3 sources) Seasonal allergy Allergy to substance 2 Unknown [facility] Work Phone: (11 sources) Seasonal Allergies: Uncoded; Translations: [Seasonal Allergies: Uncoded] Allergy to substance 2 NEEDS FOLLOW-UP [facility] (4 sources) environmental [Other] Propensity to adverse reactions 7 [facility] (1 source) OTHER; Translations: [OTHER] Propensity to adverse reactions (disorder) 7 [facility] Repository (1 source) Citalopram Drug Allergy 5 [facility] Repository Medications Current Medications Medication Drug Class(es) Dates Sig (Normalized) Sig (Original) amitriptyline hydrochloride 50 mg oral tablet (4 sources) Tricyclic Antidepressant Start: 07-23-2006 take 1 tablet by mouth once daily at bedtime amitriptyline 50 mg ORAL Tab Indications: Tension headache Take one(1) tablet daily at bedtime. 30 1 07/23/2006 Active Comment on above: Take one(1) tablet d aily at bedtime. fluticasone propionate 0.05 mg/actuat metered dose nasal spray (19 sources) Corticosteroid Start: 08-09-2024 take 50 ug nasal route once daily Fluticasone Propionate (Flonase Allergy Relief) 50 mcg/actuation spray,suspension Active 1 NMA INTRANASAL daily August 09, 2024 12:00am administer into each nostril Start: 02-03-2023 End: 05-22-2024 Fluticasone Propionate 50 mc g/actuation spray,suspension Discontinued 1 NMA INTRANASAL TWICE A DAY February 03, 2023 1:00am May 22, 2024 4:11pm Start: 09-15-2019 End: 10-12-2019 Fluticasone Propionate 1 SPR AY spray,suspension Discontinued 2 NMA NASAL DAILY September 15, 2019 12:00am October 12, 2019 3:11pm Start: 09-15-2019 End: 10-12-2019 Fluticasone Propionate Disco ntinued 2 SPRAY NASAL DAILY September 14, 2019 11:00pm October 12, 2019 2:11pm isoniazid 300 mg oral tablet (4 sources) Antimycobacterial Start: 10-26-2006 take 1 tablet by mouth once daily isoniazid 300 mg ORAL Tab Take one(1) tablet daily. 30 8 10/26/2006 Active Comment on above: Take one(1) tablet d aily. lisinopril 2.5 mg oral tablet (15 sources) Angiotensin Converting Enzyme Inhibitor Start: 08-09-2024 take 1 tablet by mouth once daily Lisinopril 2.5 mg tablet Active 2.5 mg PO daily August 09, 2024 12:00am Start: 04-28-2020 End: 10-30-2020 take 1 tablet by mouth once daily Lisinopril 20 MG tablet Discontinued 20 mg PO DAILY April 28, 2020 1:00am October 30, 2020 3:40pm loratadine 10 mg oral tablet (3 sources) Start: 08-09-2024 take 1 capsule by mouth once daily Loratadine (Allergy Relief (Loratadine)) 10 mg capsule Active 10 mg PO daily August 09, 2024 12:00am mometasone furoate 0.05 mg/actuat metered dose nasal spray (4 sources) Corticosteroid Start: 10-28-2007 take 2 spray(s) nasal route once daily mometasone furoate(NASONEX 50 MCG/ACTUATION SPRAY) TWO SPRAYS EACH NOSTRIL DAILY 1 2 10/28/2007 Active Comment on above: TWO SPRAYS EACH NOST RIL DAILY Completed/Discontinued Medications Medication Drug Class(es) Dates Sig (Normalized) Sig (Original) amoxicillin 875 mg / clavulanate 125 mg oral tablet (13 sources) Penicillin-class Antibacterial Start: 03-19-2020 End: 03-29-2020 Amoxicillin-Pot Clavulanate (Augmentin) 875-125 mg tablet Discontinued 1 {tbl} PO Q12H 20 March 19, 2020 1:00am March 28, 2020 1:00am March 29, 2020 1:03am atorvastatin 20 mg oral tablet (20 sources) HMG-CoA Reductase Inhibitor Start: 10-17-2020 End: 03-30-2022 take 1 tablet by mouth at bedtime Atorvastatin 20 mg tablet Discontinued 20 mg PO AT BEDTIME July 15, 2021 4:20pm March 30, 2022 1:53pm azelastine hydrochloride 0.137 mg/actuat metered dose nasal spray (3 sources) Histamine-1 Receptor Antagonist Start: 02-03-2023 End: 05-22-2024 Azelastine 137 mcg (0.1 %) aerosol,spray Discontinued 1 NMA INTRANASAL TWICE A DAY February 03, 2023 1:00am May 22, 2024 4:11pm cetirizine hydrochloride 10 mg oral tablet (13 sources) Histamine-1 Receptor Antagonist Start: 09-15-2019 End: 10-12-2019 take 1 tablet by mouth once daily Cetirizine 10 MG tablet Discontinued 10 mg PO DAILY September 15, 2019 12:00am October 12, 2019 3:11pm cholecalciferol 0.025 mg oral capsule (8 sources) Vitamin D Start: 01-14-2022 End: 02-03-2023 take 1 capsule by mouth once daily Cholecalciferol (Vitamin D3) 25 mcg (1,000 unit) capsule Discontinued 25 ug PO DAILY January 14, 2022 1:00am February 03, 2023 4:59pm cyclobenzaprine hydrochloride 10 mg oral tablet (10 sources) Muscle Relaxant Start: 11-30-2021 End: 03-30-2022 take 1 tablet by mouth twice daily as needed for muscle spasms Cyclobenzaprine 10 mg tablet Discontinued 10 mg PO TWICE A DAY as needed for muscle spasm November 30, 2021 12:00am March 30, 2022 1:53pm dextromethorphan hydrobromide 2 mg/ml / guaiFENesin 20 mg/ml oral solution (6 sources) Uncompetitive D-szakjm-P-asparta te Receptor Antagonist, Sigma-1 Agonist Start: 03-30-2022 End: 09-22-2022 take 1 mL by mouth every four hours as needed for cough Dextromethorphan-Gu aifenesin 10-100 mg/5 mL liquid Discontinued 10 mL PO Q4H as needed for cough 200 March 30, 2022 1:00am September 22, 2022 12:07am Start: 03-30-2022 End: 09-22-2022 take 1 mL by mouth every four hours Dextromethorphan-Guaifenesin Discontinue d 10 ML PO Q4H 200 March 30, 2022 12:00am September 21, 2022 11:07pm fenofibrate 145 mg oral tablet (13 sources) Peroxisome Proliferator Receptor alpha Agonist Start: 10-17-2020 End: 06-04-2021 take 1 tablet by mouth once daily Fenofibrate Nanocrystallized 145 mg tablet Discontinued 145 mg PO DAILY October 17, 2020 12:00am June 04, 2021 3:32pm finasteride 1 mg oral tablet (13 sources) 5-alpha Reductase Inhibitor Start: 05-12-2021 End: 02-03-2023 take 1 tablet by mouth once daily Finasteride 1 mg tablet Discontinued 1 mg PO DAILY May 12, 2021 12:00am February 03, 2023 4:59pm minoxidil 2.5 mg oral tablet (9 sources) Arteriolar Vasodilator Start: 02-03-2023 End: 05-22-2024 take 1 tablet by mouth once daily Minoxidil 2.5 mg tablet Discontinued 2.5 mg PO DAILY February 03, 2023 1:00am May 22, 2024 4:10pm Start: 07-30-2022 End: 08-01-2023 take 1 tablet by mouth once daily Minoxidil 2.5 mg tablet Discontinued 2.5 mg PO DAILY July 30, 2022 12:00am September 22, 2022 12:07am naproxen 500 mg oral tablet (10 sources) Nonsteroidal Anti-inflammatory Drug Start: 11-30-2021 End: 03-30-2022 take 1 tablet by mouth twice daily as needed for pain Naproxen (Naprosyn) 500 mg tablet Discontinued 500 mg PO TWICE A DAY as needed for pain November 30, 2021 12:00am March 30, 2022 1:54pm polymyxin b [id number] unt/ml / trimethoprim 1 mg/ml ophthalmic solution (10 sources) Dihydrofolate Reductase Inhibitor Antibacterial, Polymyxin-class Antibacterial Start: 11-30-2021 End: 03-30-2022 Polymyxin B Sulf-Trimethoprim 10,000 unit- 1 mg/mL drops Discontinued 1 NMA LEFT EYE EVERY 4 HOURS NEEDED 10 November 30, 2021 6:15pm March 30, 2022 1:54pm while awake; do not exceed 6 doses in 24 hours Problems Problem Classification Problem Date Documented Da te Episodic/Chronic Administrative/social admission (3 sources) First encounter by subject; Translations: [Persons encountering health services in other specified circumstances] 08-09-2024 Episodic Conditions associated with dizziness or vertigo (9 sources) Dizziness; Translations: [Dizziness and giddiness] Onset: 09-23-2024 05-22-2024 Episodic Diabetes mellitus without complication (11 sources) High hemoglobin A1c level; Translations: [Other abnormal glucose] 03-30-2022 Episodic Disorders of lipid metabolism (20 sources) Familial hypertriglyceridemia ; 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 E Codes: Fall (10 sources) Fall; Translations: [Unspecified fall, initial encounter] 12-08-2021 Episodic Headache; including migraine (4 sources) Tension-type headache; Translations: [Tension-type headache, unspecified, not intractable] Onset: 05-05-2006 05-05-2006 Chronic Headache; including migraine (20 sources) Headache; Translations: [Headache] Episodic Inflammation; infection of eye (except that caused by tuberculosis or sexually transmitteddisease) (10 sources) Conjunctivitis; Translations: [Unspecified conjunctivitis] 12-08-2021 Episodic Nutritional deficiencies (14 sources) Vitamin D deficiency; Translations: [Vitamin D [...] Episodic Other ear and sense organ disorders (13 sources) Tinnitus; Translations: [Tinnitus, unspecified ear] 03-19-2020 Episodic Other ear and sense organ disorders (3 sources) Tinnitus, unspecified ear; Translations: [Tinnitus, unspecified] Episodic Other nervous system disorders (1 source) Other chronic pain; Translations: [Other chronic pain] Onset: 08-09-2024 Chronic Other nutritional; endocrine; and metabolic disorders (3 sources) Insulin resistance; Translations: [Metabolic syndrome] 03-30-2022 Chronic Other nutritional; endocrine; and metabolic disorders (3 sources) Metabolic syndrome; Translations: [Dysmetabolic syndrome X] Onset: 10-26-2023 07-30-2022 Chronic Other screening for suspected conditions (not mental disorders or infectious disease) (6 sources) Raised TSH level; Translations: [Other specified abnormal findings of blood chemistry] Onset: 08-10-2024 08-08-2024 Episodic Other upper respiratory disease (13 sources) Seasonal allergy; Translations: [Other seasonal allergic rhinitis] 10-17-2020 Chronic Other upper respiratory disease (2 sources) Other seasonal allergic rhinitis; Translations: [Allergic rhinitis, cause unspecified] 07-30-2022 Chronic Otitis media and related conditions (13 sources) Acute secretory otitis media; Translations: [Other acute nonsuppurative otitis media, right ear] 03-19-2020 Episodic Residual codes; unclassified (8 sources) Sleep apnea; Translations: [Sleep apnea, unspecified] 06-04-2021 Chronic Residual codes; unclassified (4 sources) Sleep apnea, unspecified; Translations: [Unspecified sleep apnea] Chronic Residual codes; unclassified (14 sources) Obstructive sleep apnea syndrome; Translations: [Obstructive sleep apnea (adult) (pediatric)] 01-14-2022 Chronic Residual codes; unclassified (4 sources) Obstructive sleep apnea (adult) (pediatric); Translations: [Obstructive sleep apnea (adult)(pediatric)] Chronic Residual codes; unclassified (9 sources) Reduced libido; Translations: [Decreased libido] 12-25-2021 Episodic Residual codes; unclassified (3 sources) Decreased libido; Translations: [Decreased libido] Episodic Residual codes; unclassified (6 sources) H/O: respiratory disease; Translations: [Personal history of other specified conditions] 08-08-2024 Episodic Residual codes; unclassified (2 sources) Medication refused; Translations: [Immunization not carried out because of patient refusal] 08-09-2024 Episodic Screening and history of mental health and substance abuse codes (2 sources) Patient encounter status; Translations: [Encounter for screening for depression] 08-09-2024 Episodic Spondylosis; intervertebral disc disorders; other back problems (13 sources) Herniation of nucleus pulposus; Translations: [Other cervical disc displacement, unspecified cervical region] Chronic Spondylosis; intervertebral disc disorders; other back problems (20 sources) Neck pain; Translations: [Cervicalgia] Onset: 05-05-2006 10-05-2019 Episodic Superficial injury; contusion (10 sources) Contusion of lower back; Translations: [Contusion of lower back and pelvis, initial encounter] 12-08-2021 Episodic Unclassified (4 sources) Encounter for screening for malignant neoplasm of colon; Translations: [Z12.11 - Encounter for screening for malignant neoplasm of colon] Viral infection (6 sources) Disease caused by 2019-nCoV; Translations: [COVID-19] 03-30-2022 Episodic Results Test Name Value Interpretation Reference Range Facility Basic Metabolic Profile (BMP )on 09-23-2024 BUN/CRE 14.7 RATIO Normal - [facility] Comment on above: Performed By: #### L 500.2500, L100.0100 ####[facility] [address] [place], [place], [id number] Calcium [Mass/Vol] 9.2 mg/dL Normal 7.6-11.0 [facility] Comment on above: Performed By: #### L 500.2500, L100.0100 ####[facility] [address] [place], [address] Chloride [Moles/Vol] 105 mmol/L Normal 98-108 [facility] Comment on above: Performed By: #### L 500.2500, L100.0100 ####[facility] [address] [place], [address] CO2 [Moles/Vol] 21.5 mmol/L Normal 21.0-32.0 [facility] Comment on above: Performed By: #### L 500.2500, L100.0100 ####[facility] [address] [place], [address] Creatinine [Mass/Vol] 0.97 mg/dL Normal 0.70-1.20 [facility] Comment on above: Performed By: #### L 500.2500, L100.0100 ####[facility] [address] [place], [address] GAP 12 Normal 5-15 [facility] Comment on above: Performed By: #### L 500.2500, L100.0100 ####[facility] [address] [place], [address] GFR/1.73 sq M.predicted among non-blacks MDRD (S/P/Bld) [Vol rate/Area] 98 mL/min/{1.73_m2} Normal >60 [facility] Comment on above: Result Comment: mL/m in/1.73m2 CKD-EPI Creatinine Equation (2020) Performed By: #### L 500.2500, L100.0100 ####[facility] [address] [place], [address] Glucose [Mass/Vol] 102 mg/dL High 70-99 [facility] Comment on above: Performed By: #### L 500.2500, L100.0100 ####[facility] [address] [place], [address] Potassium [Moles/Vol] 3.9 mmol/L Normal 3.3-5.1 [facility] Comment on above: Performed By: #### L 500.2500, L100.0100 ####[facility] [address] [place], [address] Sodium [Moles/Vol] 139 mmol/L Normal 133-145 [facility] Comment on above: Performed By: #### L 500.2500, L100.0100 ####[facility] [address] [place], [address] Urea nitrogen [Mass/Vol] 14 mg/dL Normal 4-19 [facility] Comment on above: Performed By: #### L 500.2500, L100.0100 ####[facility] [address] [place], [address] CBC W/Diff, Automatedon 08-0 2-2024 Absolute Lymph 1.92 X10 3/uL Normal 0.83-4.51 [facility] Comment on above: Performed By: #### L 500.2500, L100.0100 ####[facility] [address] [place], [address] Absolute Neut 2.9 X10 3/uL Normal 2.0-7.7 [facility] Comment on above: Performed By: #### L 500.2500, L100.0100 ####[facility] [address] [place], [address] Basophils/100 WBC (Bld) 0.7 % Normal 0-1 [facility] Comment on above: Performed By: #### L 500.2500, L100.0100 ####[facility] [address] [place], [address] Eosinophils/100 WBC (Bld) 4.1 % Normal 0-5 [facility] Comment on above: Performed By: #### L 500.2500, L100.0100 ####[facility] [address] [place], [address] Erythrocyte distribution width (RBC) [Ratio] 13.1 % Normal 11.6-14.6 [facility] Comment on above: Performed By: #### L 500.2500, L100.0100 ####[facility] [address] [place], [address] Hematocrit (Bld) [Volume fraction] 44.3 % Normal 40-54 [facility] Comment on above: Performed By: #### L 500.2500, L100.0100 ####[facility] [address] [place], [address] Hemoglobin (Bld) [Mass/Vol] 15.2 g/dL Normal 13.0-16.5 [facility] Comment on above: Performed By: #### L 500.2500, L100.0100 ####[facility] [address] [place], [address] IG% 0.900 Normal 0.0-0.9 [facility] Comment on above: Result Comment: IG% - Immature Granulocytes (promyelocytes, myelocytes and metamyelocytes) > 1% indicates that a LEFT SHIFT is Present. Performed By: #### L 500.2500, L100.0100 ####[facility] [address] [place], [address] Lymphocytes/100 WBC (Bld) 34.5 % Normal 19-41 [facility] Comment on above: Performed By: #### L 500.2500, L100.0100 ####[facility] [address] [place], [address] MCH (RBC) [Entitic mass] 28.6 pg Normal 27.0-32.0 [facility] Comment on above: Performed By: #### L 500.2500, L100.0100 ####[facility] [address] [place], [address] MCHC (RBC) [Mass/Vol] 34.3 g/dL Normal 32-36 [facility] Comment on above: Performed By: #### L 500.2500, L100.0100 ####[facility] [address] [place], [address] MCV (RBC) [Entitic vol] 83.4 fL Normal 80-94 [facility] Comment on above: Performed By: #### L 500.2500, L100.0100 ####[facility] [address] [place], [address] Monocytes/100 WBC (Bld) 8.5 % Normal 0-10 [facility] Comment on above: Performed By: #### L 500.2500, L100.0100 ####[facility] [address] [place], [address] Neutrophils/100 WBC (Bld) 51.3 % Normal 47-70 [facility] Comment on above: Performed By: #### L 500.2500, L100.0100 ####[facility] [address] [place], [address] Nucleated RBC (Bld) [#/Vol] 0 10*3/uL Normal 0-5 [facility] Comment on above: Performed By: #### L 500.2500, L100.0100 ####[facility] [address] [place], [address] Platelet mean volume (Bld) [Entitic vol] 10.9 fL Normal 6.2-12.0 [facility] Comment on above: Performed By: #### L 500.2500, L100.0100 ####[facility] [address] [place], [address] Platelets (Bld) [#/Vol] 229 10*3/uL Normal 150-450 [facility] Comment on above: Performed By: #### L 500.2500, L100.0100 ####[facility] [address] [place], [address] RBC (Bld) [#/Vol] 5.31 10*6/uL Normal 4.6-6.2 [facility] Comment on above: Performed By: #### L 500.2500, L100.0100 ####[facility] [address] [place], [address] RDW SD 39.5 fl Normal 35.1-43.9 [facility] Comment on above: Performed By: #### L 500.2500, L100.0100 ####[facility] [address] [place], [address] WBC (Bld) [#/Vol] 5.6 10*3/uL Normal 4.4-11.0 [facility] Comment on above: Performed By: #### L 500.2500, L100.0100 ####[facility] [address] [place], [address] CCP IgG Antibodieson 025 CCP IgG Ab. 12 units Normal 0-19 [facility] Comment on above: Result Comment: Nega tive <20 Weak positive 20 - 39 Moderate positive 40 - 59 Strong positive >59 Performed at: [address] [place] [id number] Media Marketing Specialist: Alexa Trimble PhD, Phone: [phone] Performed at: [facility] [id number] Media Marketing Specialist: Sesar Yepez PhD, Phone: [phone] Performed By: #### L 3410.1400, L101.9900, L3100.5440, L505.7010, L3100.5475, L501.6710, L4600.0100 ####[facility] [address] [place], [address] HLA B27on 08-17-2024 HLA B27 Negative Normal . [facility] Comment on above: Result Comment: HLA- B*27 Negative B27 allele interpretation for all loci based on IMGT/HLA database version 3.58 This test was developed and its performance characteristics determined by [facility]. It has not been cleared or approved by the Food and Drug Administration. The FDA has determined that such clearance or approval is not necessary. [facility] CLIA ID Number [id number] HISTOCOMPATIBILITY SECTION DIRECTOR: Caron Cheema, PhD, F([facility]) This test was performed using Polymerase Chain Reaction (PCR) and Sequence Specific Oligonucleotide Probes (SSOP) technique. Sequence Based Typing (SBT) may be used as a supplemental method when necessary. If you have questions, please call [facility] service at or email at [email or web address]. Performed By: #### L 3410.1400, L101.9900, L3100.5440, L505.7010, L3100.5475, L501.6710, L4600.0100 ####[facility] [address] [place], [place], [id number] [facility] Comprehensive Panelon ANTI-DNA (DS)AB <1 Normal 0-9 [facility] Comment on above: Result Comment: Nega tive <5 Equivocal 5 - 9 Positive >9 Performed By: #### L 3410.1400, L101.9900, L3100.5440, L505.7010, L3100.5475, L501.6710, L4600.0100 ####[facility] [address] [place], [place], [id number] ANTI-SS-A < 0.2 Normal 0.0-0.9 [facility] Comment on above: Performed By: #### L 3410.1400, L101.9900, L3100.5440, L505.7010, L3100.5475, L501.6710, L4600.0100 ####[facility] [address] [place], [place], [id number] ANTI-SS-B < 0.2 Normal 0.0-0.9 [facility] Comment on above: Performed By: #### L 3410.1400, L101.9900, L3100.5440, L505.7010, L3100.5475, L501.6710, L4600.0100 ####[facility] [address] [place], [place], [id number] ANTINUCLEAR ANTIBODIES DIREC Ton 08-11-2024 ELMER,DIRECT Negative Normal Negative [facility] Comment on above: Result Comment: Perf ormed at: - [facility] [address] [id number] Media Marketing Specialist: Sesar Yepez PhD, Phone: [phone] Performed By: #### L 3410.1400, L101.9900, L3100.5440, L505.7010, L3100.5475, L501.6710, L4600.0100 ####[facility] [address] [place], [place], [id number] CRPon 08-09-2024 C-REACTIVE PROT < 3.00 Normal 0.0-3.0 [facility] Comment on above: Performed By: #### L 3410.1400, L101.9900, L3100.5440, L505.7010, L3100.5475, L501.6710, L4600.0100 ####[facility] [address] [place], [place], [id number] Erythrocyte Sed Rateon 08-09 SED RATE 6 mm/hr Normal 0- [facility] Comment on above: Performed By: #### L 3410.1400, L101.9900, L3100.5440, L505.7010, L3100.5475, L501.6710, L4600.0100 ####[facility] [address] [place], [place], [id number] Erythrocyte sedimentation ra teOrdered By: Tonia Avila on 08-09-2024 ESR (Bld) [Velocity] 6 mm/h 0-20 [facility] Rheumatoid Factoron 06-18-20 25 RHEUMATOID FAC < 10.0 Normal <15 [facility] Comment on above: Performed By: #### L 3410.1400, L101.9900, L3100.5440, L505.7010, L3100.5475, L501.6710, L4600.0100 ####[facility] [address] [place], [address] Serum DNA double strand anti body assay (units/volume)Ordered By: Tonia Avila on 08-09-2024 DNA double strand Ab Qn (S) [IU]/mL 0-9 [facility] Comment on above: Negative <5 Equivoca l 5 - 9 Positive >9 Serum Scl-70 antibody assay (units/volume)Ordered By: Tonia Avila on 08-09-2024 SCL-70 extractable nuclear Ab Qn (S) TNP [facility] Comment on above: Test not performed SCL-70 extractable nuclear Ab Qn (S) <0.2 AI 0.0-0.9 [facility] Comment on above: Previous reported re sult: TNP AIEdited by: FERNANDEZ on 08/11/24:0908 AMENDED REPORT 08/11/24 0908 ANTISCLER previously reported as: Test not performed Serum or plasma C reactive p rotein measurement (mass/volume)Ordered By: Tonia Avila on 08-09-2024 CRP [Mass/Vol] mg/L 0.0-3.0 [facility] Serum rheumatoid factor dete ctionOrdered By: Tonia Avila on 08-09-2024 Rheumatoid factor Ql (S) < 10.0 IU/mL <15 [facility] Internal Medicine Office Vis iton 08-08-2024 Internal Medicine Office Visit [facility] [address] [place], [place] [address] OFFICE VISIT Date of Service: 08/09/24 MR#: [id number] Acct: [id number] Name: ZAK HELM Rep #: [id number] : 1975 Provider: Dr. 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 Accompanied by: Is patient in pain?: No Allergies Seasonal Allergies: Uncoded Allergy (Unknown, Verified 08/09/24 11:22) NEEDS FOLLOW-UP citalopram (From Celexa) Allergy (Verified 08/09/24 11:22) Rash Medications ???Medication ???Instructions ???Recorded ???Confirmed ???Type fluticasone propionate 50 1 spray intranasal QDAY 08/09/24 0 08/09/24 History mcg/actuation nasal spray,suspension (Flonase Allergy Relief) lisinopril 2.5 mg tablet 2.5 mg PO QDAY #30 tabs 08/09/24 0 08/09/24 Rx loratadine 10 mg capsule (Allergy 10 mg PO QDAY 08/09/24 08/09/24 H istory Relief (loratadine)) Have you fallen in the past year?: No PFSH Medical History COVID-19 Dizziness History of snoring Elevated TSH Seasonal allergies Migraines High cholesterol Surgical History History of shoulder surgery History of rotator cuff surgery Family History (Updated 08/09/24 @ 11:[address] Tonia Avila MD) Father Diabetes Myocardial infarction, Onset Age: 80 CVA (cerebral vascular accident) Mother Hyperlipemia Tremor Social History (Updated 08/09/24 @ 11:[address] 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 1. Little interest or pleasure in doing things: not at all 2. Feeling down, depressed, or hopeless: not at all 3. Trouble falling or staying asleep, or sleeping too much: not at all 4. Feeling tired or having little energy: several days 5. Poor appetite or overeating: not at all 6. Feeling bad about yourself - or that you are a failure or have let yourself and your family down: not at all 7. Trouble concentrating on things, such as reading the newspaper or watching television: not at all 8. Moving or speaking so slowly that other people could have noticed? - Or the opposite - being so fidgety or restless that you have been moving around a lot more than usual: not at all 9. Thoughts that you would be better off or of hurting yourself in some way: not at all Total score: 1 If you checked off any problems, how difficult have these problems made it for you to do your work, take care of things at home, or get along with other people?: not difficult at all Source: Developed by Drs. Rupert Jin, Nithya Bautista, Onofre March and colleagues, with an educational seth from [employer] [facility] HPI Chief Complaint: establishing Details: ZAK HELM, is a 48 M who presents to the office today to transition care. He was seeing Dr. Ortega and last saw him in October. He is not due for any routine blood work. He is due for colon cancer screening. He doesn't want any immunizations. He doesn't smoke and doesn't take any prescription medications. He reports he is eating healthy stating he doesn't eat a lot of fast food. He admits that he likes his pepsi and candy. He is staying active. 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 He doesn't wear a CPAP stating he didn't tolerate it. He reports he switched to a mouthguard and seems to be doing well with it. He states he is due to get a new one. The patient has a history of prediabetes. He doesn't check his sugars at home and doesn't take any medications. He doesn't really monitor his carbohydrate and sugar intake, as above, stating he likes pepsi and candy. The patient has chronic neck pain. He reports that he has been having problems with it f (more content not included)... Normal [facility] Absolute lymphocyte countOrd ered By: Connie Ortega on 08-05-2024 Lymphocytes Auto (Unsp spec) [#/Vol] 1.76 10*3/uL 0.83-4.51 [facility] Absolute neutrophil countOrd ered By: Connie Ortega on 08-05-2024 Neutrophils (Bld) [#/Vol] 2.8 10*3/uL 2.0-7.7 [facility] Anion gap in Serum or Plasma Ordered By: Connie Ortega on 08-05-2024 Anion gap [Moles/Vol] 11 mmol/L 5-15 [facility] Automated lymphocyte count a s percentage of total leukocytesOrdered By: Connie Ortega on 08-05-2024 Lymphocytes/100 WBC Auto (Unsp spec) 32.8 % 19-41 [facility] BUN/creatinine ratioOrdered By: Connie Ortega on 08-05-2024 Urea nitrogen/Creatinine [Mass ratio] 16.2 mg/mg 10-20 [facility] Basophil percentageOrdered B y: Connie Ortega on 08-05-2024 Basophils/100 WBC (Bld) 0.7 % 0-1 [facility] Bilirubin, totalOrdered By: Connie Ortega on 08-05-2024 Bilirubin [Mass/Vol] 0.31 mg/dL 0.00-1.30 [facility] CBC W/Diff, Automatedon 07-23 Absolute Lymph 1.76 X10 3/uL Normal 0.83-4.51 [facility] Comment on above: Performed By: #### L 501.9520, L500.4100, L100.0100, L506.0400, L506.1001, L501.73002, L500.4050, L501.9985 #### [facility] [address] [place], [address] Absolute Neut 2.8 X10 3/uL Normal 2.0-7.7 [facility] Comment on above: Performed By: #### L 501.9520, L500.4100, L100.0100, L506.0400, L506.1001, L501.95113, L500.4050, L501.9985 #### [facility] [address] [facility] [place], [address] Basophils/100 WBC (Bld) 0.7 % Normal 0-1 [facility] Comment on above: Performed By: #### L 501.9520, L500.4100, L100.0100, L506.0400, L506.1001, L501.00918, L500.4050, L501.9985 #### [facility] [address] [facility] [place], [address] Eosinophils/100 WBC (Bld) 4.3 % Normal 0-5 [facility] Comment on above: Performed By: #### L 501.9520, L500.4100, L100.0100, L506.0400, L506.1001, L501.52831, L500.4050, L501.9985 #### [facility] [address] [place], [address] Erythrocyte distribution width (RBC) [Ratio] 13.0 % Normal 11.6-14.6 [facility] Comment on above: Performed By: #### L 501.9520, L500.4100, L100.0100, L506.0400, L506.1001, L501.67224, L500.4050, L501.9985 #### [facility] [address] [place], [address] Hematocrit (Bld) [Volume fraction] 42.7 % Normal 40-54 [facility] Comment on above: Performed By: #### L 501.9520, L500.4100, L100.0100, L506.0400, L506.1001, L501.11245, L500.4050, L501.9985 #### [facility] [address] [place], [address] Hemoglobin (Bld) [Mass/Vol] 14.5 g/dL Normal 13.0-16.5 [facility] Comment on above: Performed By: #### L 501.9520, L500.4100, L100.0100, L506.0400, L506.1001, L501.30836, L500.4050, L501.9985 #### [facility] [address] [place], [address] IG% 0.400 Normal 0.0-0.9 [facility] Comment on above: Result Comment: IG% - Immature Granulocytes (promyelocytes, myelocytes and metamyelocytes) > 1% indicates that a LEFT SHIFT is Present. Performed By: #### L 501.9520, L500.4100, L100.0100, L506.0400, L506.1001, L501.77943, L500.4050, L501.9985 #### [facility] [address] [place], [address] Lymphocytes/100 WBC (Bld) 32.8 % Normal 19-41 [facility] Comment on above: Performed By: #### L 501.9520, L500.4100, L100.0100, L506.0400, L506.1001, L501.26246, L500.4050, L501.9985 #### [facility] [address] [place], [address] MCH (RBC) [Entitic mass] 28.5 pg Normal 27.0-32.0 [facility] Comment on above: Performed By: #### L 501.9520, L500.4100, L100.0100, L506.0400, L506.1001, L501.58088, L500.4050, L501.9985 #### [facility] [address] [place], [address] MCHC (RBC) [Mass/Vol] 34.0 g/dL Normal 32-36 [facility] Comment on above: Performed By: #### L 501.9520, L500.4100, L100.0100, L506.0400, L506.1001, L501.92689, L500.4050, L501.9985 #### [facility] [address] [place], [address] MCV (RBC) [Entitic vol] 83.9 fL Normal 80-94 [facility] Comment on above: Performed By: #### L 501.9520, L500.4100, L100.0100, L506.0400, L506.1001, L501.42295, L500.4050, L501.9985 #### [facility] [address] [place], [address] Monocytes/100 WBC (Bld) 9.1 % Normal 0-10 [facility] Comment on above: Performed By: #### L 501.9520, L500.4100, L100.0100, L506.0400, L506.1001, L501.19719, L500.4050, L501.9985 #### [facility] [address] [place], [address] Neutrophils/100 WBC (Bld) 52.7 % Normal 47-70 [facility] Comment on above: Performed By: #### L 501.9520, L500.4100, L100.0100, L506.0400, L506.1001, L501.17805, L500.4050, L501.9985 #### [facility] [address] [place], [address] Nucleated RBC (Bld) [#/Vol] 0 10*3/uL Normal 0-5 [facility] Comment on above: Performed By: #### L 501.9520, L500.4100, L100.0100, L506.0400, L506.1001, L501.36923, L500.4050, L501.9985 #### [facility] [address] [place], [address] Platelet mean volume (Bld) [Entitic vol] 10.5 fL Normal 6.2-12.0 [facility] Comment on above: Performed By: #### L 501.9520, L500.4100, L100.0100, L506.0400, L506.1001, L501.12617, L500.4050, L501.9985 #### [facility] [address] [place], [address] Platelets (Bld) [#/Vol] 209 10*3/uL Normal 150-450 [facility] Comment on above: Performed By: #### L 501.9520, L500.4100, L100.0100, L506.0400, L506.1001, L501.50535, L500.4050, L501.9985 #### [facility] [address] [place], [address] RBC (Bld) [#/Vol] 5.09 10*6/uL Normal 4.6-6.2 [facility] Comment on above: Performed By: #### L 501.9520, L500.4100, L100.0100, L506.0400, L506.1001, L501.51613, L500.4050, L501.9985 #### [facility] [address] [place], [place], [address] RDW SD 39.7 fl Normal 35.1-43.9 [facility] Comment on above: Performed By: #### L 501.9520, L500.4100, L100.0100, L506.0400, L506.1001, L501.31677, L500.4050, L501.9985 #### [facility] [address] [place], [address] WBC (Bld) [#/Vol] 5.4 10*3/uL Normal 4.4-11.0 [facility] Comment on above: Performed By: #### L 501.9520, L500.4100, L100.0100, L506.0400, L506.1001, L501.53506, L500.4050, L501.9985 #### [facility] [address] [place], [place], [id number] Calculated very low density lipoprotein (VLDL) cholesterol measurementOrdered By: Connie Ortega on 08-05-2024 Calculated very low density lipoprotein (VLDL) cholesterol measurement 48 mg/dL High 5-40 [facility] Carbon dioxide, total [Moles /volume] in Central venous bloodOrdered By: Connie Ortega on 08-05-2024 CO2 [Moles/Vol] 20.1 mmol/L Low 21.0-32.0 [facility] Chloride assayOrdered By: Savana Ortega on 08-05-2024 Chloride [Moles/Vol] 108 mmol/L 98-108 [facility] Comprehensive Metabolic Prof ilon 08-05-2024 Albumin [Mass/Vol] 4.2 g/dL Normal 3.5-5.0 [facility] Comment on above: Performed By: #### L 501.9520, L500.4100, L100.0100, L506.0400, L506.1001, L501.97472, L500.4050, L501.9985 #### [facility] [address] [place], [address] Albumin/Globulin [Mass ratio] 1.5 {ratio} Normal 0.9-2.4 [facility] Comment on above: Performed By: #### L 501.9520, L500.4100, L100.0100, L506.0400, L506.1001, L501.78976, L500.4050, L501.9985 #### [facility] [address] [place], [address] ALK PHOS 78 U/L Normal 40-129 [facility] Comment on above: Performed By: #### L 501.9520, L500.4100, L100.0100, L506.0400, L506.1001, L501.84416, L500.4050, L501.9985 #### [facility] [address] [place], [address] ALT [Catalytic activity/Vol] 54 U/L High <=46 [facility] Comment on above: Performed By: #### L 501.9520, L500.4100, L100.0100, L506.0400, L506.1001, L501.24397, L500.4050, L501.9985 #### [facility] [address] [place], [address] AST [Catalytic activity/Vol] 33 U/L Normal <=37 [facility] Comment on above: Performed By: #### L 501.9520, L500.4100, L100.0100, L506.0400, L506.1001, L501.60259, L500.4050, L501.9985 #### [facility] [address] [place], [address] Bilirubin [Mass/Vol] 0.31 mg/dL Normal 0.00-1.30 [facility] Comment on above: Performed By: #### L 501.9520, L500.4100, L100.0100, L506.0400, L506.1001, L501.30383, L500.4050, L501.9985 #### [facility] [address] [place], [address] BUN/CRE 16.2 RATIO Normal 10-20 [facility] Comment on above: Performed By: #### L 501.9520, L500.4100, L100.0100, L506.0400, L506.1001, L501.77455, L500.4050, L501.9985 #### [facility] [address] [place], [address] Calcium [Mass/Vol] 9.0 mg/dL Normal 7.6-11.0 [facility] Comment on above: Performed By: #### L 501.9520, L500.4100, L100.0100, L506.0400, L506.1001, L501.82372, L500.4050, L501.9985 #### [facility] [address] [place], [address] Chloride [Moles/Vol] 108 mmol/L Normal 98-108 [facility] Comment on above: Performed By: #### L 501.9520, L500.4100, L100.0100, L506.0400, L506.1001, L501.64205, L500.4050, L501.9985 #### [facility] [address] [place], [address] CO2 [Moles/Vol] 20.1 mmol/L Low 21.0-32.0 [facility] Comment on above: Performed By: #### L 501.9520, L500.4100, L100.0100, L506.0400, L506.1001, L501.11908, L500.4050, L501.9985 #### [facility] [address] [place], [address] Creatinine [Mass/Vol] 1.00 mg/dL Normal 0.70-1.20 [facility] Comment on above: Performed By: #### L 501.9520, L500.4100, L100.0100, L506.0400, L506.1001, L501.31710, L500.4050, L501.9985 #### [facility] [address] [place], [address] GAP 11 Normal 5-15 [facility] Comment on above: Performed By: #### L 501.9520, L500.4100, L100.0100, L506.0400, L506.1001, L501.57756, L500.4050, L501.9985 #### [facility] [address] [place], [place], [id number] (406) GFR/1.73 sq M.predicted among non-blacks MDRD (S/P/Bld) [Vol rate/Area] 94 mL/min/{1.73_m2} Normal >60 [facility] Comment on above: Result Comment: mL/m in/1.73m2 CKD-EPI Creatinine Equation (2020) Performed By: #### L 501.9520, L500.4100, L100.0100, L506.0400, L506.1001, L501.68174, L500.4050, L501.9985 #### [facility] [address] [place], [address] Globulin (S) [Mass/Vol] 2.9 g/dL Normal 2.2-4.2 [facility] Comment on above: Performed By: #### L 501.9520, L500.4100, L100.0100, L506.0400, L506.1001, L501.18953, L500.4050, L501.9985 #### [facility] [address] [place], [address] Glucose [Mass/Vol] 113 mg/dL High 70-99 [facility] Comment on above: Performed By: #### L 501.9520, L500.4100, L100.0100, L506.0400, L506.1001, L501.96098, L500.4050, L501.9985 #### [facility] [address] [place], [address] Potassium [Moles/Vol] 4.1 mmol/L Normal 3.3-5.1 [facility] Comment on above: Performed By: #### L 501.9520, L500.4100, L100.0100, L506.0400, L506.1001, L501.51702, L500.4050, L501.9985 #### [facility] [address] [place], [address] Sodium [Moles/Vol] 139 mmol/L Normal 133-145 [facility] Comment on above: Performed By: #### L 501.9520, L500.4100, L100.0100, L506.0400, L506.1001, L501.32224, L500.4050, L501.9985 #### [facility] [address] [place], [address] T PROT 7.1 g/dL Normal 5.9-8.4 [facility] Comment on above: Performed By: #### L 501.9520, L500.4100, L100.0100, L506.0400, L506.1001, L501.56735, L500.4050, L501.9985 #### [facility] [address] [place], [address] Urea nitrogen [Mass/Vol] 16 mg/dL Normal 4-19 [facility] Comment on above: Performed By: #### L 501.9520, L500.4100, L100.0100, L506.0400, L506.1001, L501.36656, L500.4050, L501.9985 #### [facility] [address] [place], [place], [id number] Eosinophil percentageOrdered By: Connie Ortega on 08-05-2024 Eosinophils/100 WBC (Bld) 4.3 % 0-5 [facility] Erythrocyte distribution wid th ratioOrdered By: Connie Ortega on 08-05-2024 Erythrocyte distribution width (RBC) [Ratio] 13.0 % 11.6-14.6 [facility] Erythrocyte distribution wid th standard deviationOrdered By: Connie Ortega on 08-05-2024 Erythrocyte distribution width (RBC) [Ratio] 39.7 fl 35.1-43.9 [facility] Free T3on 08-05-2024 Free T3 [Mass/Vol] 3.3 pg/mL Normal 2.18-3.98 [facility] Comment on above: Performed By: #### L 501.9520, L500.4100, L100.0100, L506.0400, L506.1001, L501.72163, L500.4050, L501.9985 #### [facility] [address] [place], [place], [id number] Free T8Hsdjyhv By: Connie osborne on 08-05-2024 Free T3 [Mass/Vol] 3.3 pg/mL 2.18-3.98 [facility] Glomerular filtration rate ( GFR) estimation/1.73 sq m using serum, plasma, or whole bOrdered By: Connie Ortega on 08-05-2024 GFR/1.73 sq M.predicted among non-blacks MDRD (S/P/Bld) [Vol rate/Area] 94 mL/min/{1.73_m2} >60 [facility] Comment on above: mL/min/1.73m2 CKD-EP I Creatinine Equation (2020) Hematocrit Auto (Bld) [Volum e fraction]Ordered By: Connie Ortega on 08-05-2024 Hematocrit (Bld) [Volume fraction] 42.7 % 40-54 [facility] Hemoglobin A1con 08-05-2024 HbA1c (Bld) [Mass fraction] 6.0 % High <=5.6 [facility] Comment on above: Result Comment: Norm al < 5.7 % Prediabetic 5.7 - 6.4 % Diabetic >or= 6.5 % Please note range changes. Performed By: #### L 501.9520, L500.4100, L100.0100, L506.0400, L506.1001, L501.85034, L500.4050, L501.9985 #### [facility] [address] [place], [address] Hemoglobin A1c percentageOrd ered By: Connie Ortega on 08-05-2024 HbA1c (Bld) [Mass fraction] 6.0 % High <5.7 [facility] Comment on above: Normal < 5.7 % Predi abetic 5.7 - 6.4 % Diabetic >or= 6.5 % Please note range changes. Hemoglobin measurementOrdere d By: Connie Ortega on 08-05-2024 Hemoglobin (Bld) [Mass/Vol] 14.5 g/dL 13.0-16.5 [facility] Immature granulocytes/100 WB C Auto (Bld)Ordered By: Connie Ortega on 08-05-2024 Immature granulocytes/100 WBC (Bld) 0.400 % 0.0-0.9 [facility] Comment on above: IG% - Immature Granu locytes (promyelocytes, myelocytes and metamyelocytes) > 1% indicates that a LEFT SHIFT is Present. LDL calc ser/plasOrdered By: Connie Ortega on 08-05-2024 Cholesterol in LDL [Mass/Vol] 165 mg/dL [facility] Comment on above: Erbeypcxtf=088-014 m g/dL & Higher Dsdh=948 mg/dL or greater Laboratory - Chemistry and C hemistry - challengeOrdered By: Connie Ortega on 08-05-2024 AST [Catalytic activity/Vol] 33 U/L <38 [facility] Lipid Profileon 06-14-2025 CHOL:HDL 6.61 Normal [facility] Comment on above: Performed By: #### L 501.9520, L500.4100, L100.0100, L506.0400, L506.1001, L501.12636, L500.4050, L501.9985 #### [facility] [address] [place], [address] Cholesterol [Mass/Vol] 251 mg/dL High <=200 [facility] Comment on above: Result Comment: Chol esterol level, Desirable <200 mg/dL Borderline high cholesterol 200-239 mg/dL High cholesterol >=240 mg/dL Recommendations of the NCEP Adult Treatment Panel for the following risk-cutoff thresholds for the [place] population. Performed By: #### L 501.9520, L500.4100, L100.0100, L506.0400, L506.1001, L501.48306, L500.4050, L501.9985 #### [facility] [address] [place], [address] Cholesterol in HDL [Mass/Vol] 38 mg/dL Low [facility] Comment on above: Result Comment: [place] on[place] Cholesterol Education Program (NCEP) guidelines: <40 mg/dL: Low HDL-cholesterol (major risk factor for CHD) >= 60 mg/dL: High HDL-cholesterol (negative risk factor for CHD) HDL-cholesterol is affected by a number of factors, e.g. smoking, exercise, hormones, sex and age. Performed By: #### L 501.9520, L500.4100, L100.0100, L506.0400, L506.1001, L501.47175, L500.4050, L501.9985 #### [facility] [address] [place], [address] Cholesterol in LDL [Mass/Vol] 165 mg/dL Normal [facility] Comment on above: Result Comment: Bord vudjcg=413-847 mg/dL Higher Iwjz=532 mg/dL or greater Performed By: #### L 501.9520, L500.4100, L100.0100, L506.0400, L506.1001, L501.81916, L500.4050, L501.9985 #### [facility] [address] [place], [address] Cholesterol in VLDL [Mass/Vol] 48 mg/dL High 5-40 [facility] Comment on above: Performed By: #### L 501.9520, L500.4100, L100.0100, L506.0400, L506.1001, L501.77064, L500.4050, L501.9985 #### [facility] [address] [place], [place], [id number] (752) Triglyceride [Mass/Vol] 239 mg/dL High [facility] Comment on above: Result Comment: The drugs N-Acetylcysteine and Metamizole may falsely depress this assay. Normal range: <150 mg/dL Borderline High: 150-199 mg/dL High: 200-499 mg/dL Very High: >500 mg/dL Performed By: #### L 501.9520, L500.4100, L100.0100, L506.0400, L506.1001, L501.40268, L500.4050, L501.9985 #### [facility] [address] [place], [place], [id number] MCV (mean corpuscular volume ) determinationOrdered By: Connie Ortega on 08-05-2024 MCV (RBC) [Entitic vol] 83.9 fL 80-94 [facility] Mean corpuscular hemoglobin (MCH) determinationOrdered By: Connie Ortega on 08-05-2024 MCH (RBC) [Entitic mass] 28.5 pg 27.0-32.0 [facility] Mean corpuscular hemoglobin concentration (MCHC) determinationOrdered By: Connie Ortega on 08-05-2024 MCHC (RBC) [Mass/Vol] 34.0 g/dL 32-36 [facility] Mean platelet volume determi nationOrdered By: Connie Ortega on 08-05-2024 Platelet mean volume (Bld) [Entitic vol] 10.5 fL 6.2-12.0 [facility] Monocyte percentageOrdered B y: Connie Ortega on 08-05-2024 Monocytes/100 WBC (Bld) 9.1 % 0-10 [facility] Neutrophil percentageOrdered By: Connie Ortega on 08-05-2024 Neutrophils/100 WBC (Bld) 52.7 % 47-70 [facility] Nucleated red blood cell per centageOrdered By: Connie Ortega on 08-05-2024 Nucleated RBC/100 WBC (Bld) [Ratio] 0 % 0-5 [facility] Platelet countOrdered By: Savana Ortega on 08-05-2024 Platelets (Bld) [#/Vol] 209 10*3/uL 150-450 [facility] Potassium measurement (mass/ volume)Ordered By: Connie Ortega on 08-05-2024 Potassium (Unsp spec) [Mass/Vol] 4.1 mmol/L 3.3-5.1 [facility] RBC Auto (Bld) [#/Vol]Ordere d By: Connie Ortega on 08-05-2024 RBC (Bld) [#/Vol] 5.09 10*6/uL 4.6-6.2 [facility] Screening total cholesterol/ high density lipoprotein (HDL) cholesterol ratioOrdered By: Connie Ortega on 08-05-2024 Cholesterol.total/Jessica sterol in HDL [Mass ratio] 6.61 {ratio} [facility] Serum creatinine measurement (mass/volume)Ordered By: Connie Ortega on 08-05-2024 Creatinine [Mass/Vol] 1.00 mg/dL 0.70-1.20 [facility] Serum globulin measurementOr dered By: Connie Ortega on 08-05-2024 Globulin (S) [Mass/Vol] 2.9 g/dL 2.2-4.2 [facility] Serum glucose measurement (m ass/volume)Ordered By: Connie Ortega on 08-05-2024 Glucose [Mass/Vol] 113 mg/dL High 70-99 [facility] Serum or plasma alanine joseph otransferase (ALT) measurementOrdered By: Connie Ortega on 08-05-2024 ALT [Catalytic activity/Vol] 54 U/L High <47 [facility] Serum or plasma albumin awilda urement (mass/volume)Ordered By: Connie Ortega on 08-05-2024 Albumin [Mass/Vol] 4.2 g/dL 3.5-5.0 [facility] Serum or plasma albumin/glob ulin mass ratioOrdered By: Connie Ortega on 08-05-2024 Albumin/Globulin [Mass ratio] 1.5 {ratio} 0.9-2.4 [facility] Serum or plasma alkaline letty sphatase measurementOrdered By: Connie Ortega on 08-05-2024 ALP [Catalytic activity/Vol] 78 U/L 40-129 [facility] Serum or plasma calcium awilda urement (mass/volume)Ordered By: Connie Ortega on 08-05-2024 Calcium [Mass/Vol] 9.0 mg/dL 7.6-11.0 [facility] Serum or plasma cholesterol in HDL measurement (mass/volume)Ordered By: Connie Ortega on 08-05-2024 Cholesterol in HDL [Mass/Vol] 38 mg/dL Low >40 [facility] Comment on above: National Cholesterol Education Program (NCEP) guidelines:<40 mg/dL: Low HDL-cholesterol (major risk factor for CHD)>= 60 mg/dL: High HDL-cholesterol (negative risk factor for CHD)HDL-cholesterol is affected by a number of factors, e.g. smoking, exercise, hormones, sex and age. Serum or plasma cholesterol measurement (mass/volume)Ordered By: Connie Ortega on 08-05-2024 Cholesterol [Mass/Vol] 251 mg/dL High <201 [facility] Comment on above: Cholesterol level, D esirable <200 mg/dLBorderline high cholesterol 200-239 mg/dLHigh cholesterol >=240 mg/dLRecommendations of the NCEP Adult Treatment Panel for the following risk-cutoff thresholds for the [place] population. Serum or plasma urea nitroge n measurement (mass/volume)Ordered By: Connie Ortega on 08-05-2024 Urea nitrogen [Mass/Vol] 16 mg/dL 4-19 [facility] Sodium levelOrdered By: Denise Ortega on 08-05-2024 Sodium [Moles/Vol] 139 mmol/L 133-145 [facility] T4 Free Directon 08-05-2024 T4 FREE DIRECT 1.00 ng/dL Normal 0.76-1.46 [facility] Comment on above: Performed By: #### L 501.9520, L500.4100, L100.0100, L506.0400, L506.1001, L501.14362, L500.4050, L501.9985 ####[facility] [address] [place], [address] T4 freeOrdered By: Connie osborne on 08-05-2024 Free T4 [Mass/Vol] 1.00 ng/dL 0.76-1.46 [facility] TSH DL <= 0.005 mIU/L QnOrde red By: Connie Ortega on 08-05-2024 TSH Qn 3.970 uIU/mL 0.300-4.200 [facility] Thyroid Stim Hormone (TSH)on 08-05-2024 TSH 3.970 uIU/mL Normal 0.300-4.200 [facility] Comment on above: Performed By: #### L 501.9520, L500.4100, L100.0100, L506.0400, L506.1001, L501.86871, L500.4050, L501.9985 #### [facility] [address] [place], [place], [id number] Total proteinOrdered By: Amanda Ortega on 08-05-2024 Protein [Mass/Vol] 7.1 g/dL 5.9-8.4 [facility] Triglycerides measurementOrd ered By: Connie Ortega on 08-05-2024 Triglyceride [Mass/Vol] 239 mg/dL High <199 [facility] Comment on above: The drugs N-Acetylcy steine and Metamizole may falsely depress this assay. Normal range: <150 mg/dLBorderline High: 150-199 mg/dLHigh: 200-499 mg/dLVery High: >500 mg/dL Vitamin D,25 Hydroxyon 08-05 Vitamin D 25-OH 21.7 ng/mL Low 30-100 [facility] Comment on above: Result Comment: Inez min D Status Deficiency: <20 ng/mL (50nmol/L) Insufficiency: 20-30 ng/mL (50-75 nmol/L) Sufficiency: 30-100 ng/mL (75-250 nmol/L) Toxicity: >100 ng/mL (>250 nmol/L) Performed By: #### L 501.9520, L500.4100, L100.0100, L506.0400, L506.1001, L501.01917, L500.4050, L501.9985 ####[facility] [address] [place], [place], [id number] White blood cell (WBC) count Ordered By: Connie Ortega on 08-05-2024 WBC (Bld) [#/Vol] 5.4 10*3/uL 4.4-11.0 [facility] Urgent Care Visit Reporton 0 05-22-2024 Urgent Care Visit Report [facility] [address], [address] [place] [address] OFFICE VISIT Date of Service: 05/22/24 MR#: [id number] Acct: [id number] Name: ALICJAZAKAbdirahman GAN Rep #: [id number] : 1975 Provider: DEANNA Naqvi Age/Sex: 48/M Location: [facility] [place] Status: Signed Intake Vital [...] anywhere from 140-145 to 90-95 on average. [facility] Medical History (Updated 05/22/24 @ 16:37 by Stan HUERTA PA) Dizziness History of snoring Elevated TSH [...] breath/dyspnea on exertion. He has taken no fmyo-cmu-gfggamq products to assist with symptoms. He has no other associated symptoms and no other alleviating/aggravatin g factors. ROS Const Constitutional: No other (As above) Exam Const General: cooperative, healthy appearing and no acute distress Orientation: alert and awake [facility] Head: normal to inspection Ears: hearing grossly [...] and movem (more content not included)... Normal [facility] Spine Cervical (Routine)on 03-20-2023 Spine Cervical (Routine) [facility] [address] [place] [address] Spine Cervical (Routine) MR#: [id number] Acct: [id number] Name: ZAK HELM Rep #: [id number] : 1975 M 48 From: Manpreet Pal MD PCP: Dr. Connie Ortega MD Status: REG CLI Study: Spine Cervical (Routine) Date of Exam: Exam# [id number] Ordering Dr: Amadeo Patel [place] [id number] EXAM: MR CERVICAL SPINE WITHOUT INTRAVENOUS CONTRAST [...] Connie Ortega MD; Dr. Amadeo Patel MD Senior Project Accountant: Signed Normal [facility] 12-15-2023 [facility] ZAK HELM ([id number]) 1975 M Date Time Provider Department 12/15/23 [...] Please give me a call back - [phone]. Thanks. Office to await MRI denial email from Pre-Access Denials Support Team. Glenna Moses RN 12/20/2023 9:28 AM Signed Secure email sent to [facility] for MRI denial/denial rationale. Awaiting response. Glenna Moses RN 12/20/2023 11:48 AM Signed Per Pre-Access Denials Support Team: We submitted the precertification request trough [employer] and faxed clinical information (TN: [phone]). Related Referral Number: [id number] Awaiting determination. Allergies As of Date: 12/15/2023 [...] have been reviewed today /10/26/2006 Karlee Patel [facility] Problem List As Of Date 12/15/2023 Noted Resolved 2.3.1 Chronic tension-type headache associated *05/05/2006 CERVICALGIA [M54.2] 05/05/2006 Encounter Status:Closed by GLENNA MOSES on 12/15/23 Normal [facility] CNOVon 11-15-2023 CNOV Office Visit (PNMDNA ) ZAK HELM Alma ([id number]) 1975 M Date Time Provider Department 11/15/23 3:30 PM AMADEO PATEL PNNA During your visit today, we recorded the following information about you: Amadeo Patel MD 12/15/2023 7:40 AM Signed [facility] Date: November 15, 2023 [...] has included: Medication(s): ibuprofen, Tylenol Physical therapy: [facility] in [place], [place] Chiropractic: Last year Acupuncture: 1 month ago with no relief. Injection(s): Cervical facet injections with Dr. Ruiz in [place] with no relief. ALLERGIES Allergen Reactions Celexa [...] Panel: No results found for: UQCANN, UQBNZL, GQP3EVV, UQAMPH, UQMAMP, UQBUPRE, UQNORBUP, UQMTHD, UQEDDP, UQTRAM, [...] conservative optio (more content not included)... Normal [facility] MR/BMS.IMBon 10-28-2023 MR/BMS.IMB [facility] [address] [place], [place] [address] OFFICE VISIT Date of Service: 10/28/23 MR#: [id number] Acct: [id number] Name: ZAK HELM Rep #: [id number] : 1975 Provider: Dr. 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 [...] grossly unremarkable (more content not included)... Normal [facility] Insulin Levelon 10-26-2023 INSULIN,FASTING 16.5 uIU/mL Normal 2.6-24.9 [facility] Comment on above: Result Comment: Perf ormed at: - [facility] [address] [id number] Media Marketing Specialist: Sesar Yepez PhD, Phone: [phone] Performed By: #### L 500.4100, L100.0100, L3300.3500, L501.9520, L501.9985, L501.9910, L500.4050, L506.1000 ####[facility] [address] [place], [place], [id number] Vitamin D,25 Hydroxyon 10-25 Vitamin D 25-OH 21.2 ng/mL Normal [facility] Comment on above: Result Comment: Inez min D 25(OH) Status Range Deficiency <20 ng/mL (50nmol/L) Insufficiency 20 - 30 ng/mL (50 - 75 nmol/L) Sufficiency 30 - 100 ng/mL (75 - 250 nmol/L) Toxicity >100 ng/mL (>250 nmol/L) Performed By: #### L 500.4100, L100.0100, L3300.3500, L501.9520, L501.9985, L501.9910, L500.4050, L506.1000 ####[facility] [address] [place], [place], [id number] CBC W/Diff, Automatedon - Absolute Lymph 2.25 X10 3/uL Normal 0.83-4.51 [facility] Comment on above: Performed By: #### L 500.4100, L100.0100, L3300.3500, L501.9520, L501.9985, L501.9910, L500.4050, L506.1000 ####[facility] [address] [place], [place], [id number] Absolute Neut 3.3 X10 3/uL Normal 2.0-7.7 [facility] Comment on above: Performed By: #### L 500.4100, L100.0100, L3300.3500, L501.9520, L501.9985, L501.9910, L500.4050, L506.1000 ####[facility] [address] [place], [address] Basophils/100 WBC (Bld) 0.8 % Normal 0-1 [facility] Comment on above: Performed By: #### L 500.4100, L100.0100, L3300.3500, L501.9520, L501.9985, L501.9910, L500.4050, L506.1000 ####[facility] [address] [place], [address] Eosinophils/100 WBC (Bld) 4.8 % Normal 0-5 [facility] Comment on above: Performed By: #### L 500.4100, L100.0100, L3300.3500, L501.9520, L501.9985, L501.9910, L500.4050, L506.1000 ####[facility] [address] [place], [address] Erythrocyte distribution width (RBC) [Ratio] 13.0 % Normal 11.6-14.6 [facility] Comment on above: Performed By: #### L 500.4100, L100.0100, L3300.3500, L501.9520, L501.9985, L501.9910, L500.4050, L506.1000 ####[facility] [address] [place], [address] Hematocrit (Bld) [Volume fraction] 44.9 % Normal 40-54 [facility] Comment on above: Performed By: #### L 500.4100, L100.0100, L3300.3500, L501.9520, L501.9985, L501.9910, L500.4050, L506.1000 ####[facility] [address] [place], [address] Hemoglobin (Bld) [Mass/Vol] 15.4 g/dL Normal 13.0-16.5 [facility] Comment on above: Performed By: #### L 500.4100, L100.0100, L3300.3500, L501.9520, L501.9985, L501.9910, L500.4050, L506.1000 ####[facility] [address] [place], [address] IG% 0.600 Normal 0.0-0.9 [facility] Comment on above: Result Comment: IG% - Immature Granulocytes (promyelocytes, myelocytes and metamyelocytes) > 1% indicates that a LEFT SHIFT is Present. Performed By: #### L 500.4100, L100.0100, L3300.3500, L501.9520, L501.9985, L501.9910, L500.4050, L506.1000 ####[facility] [address] [place], [address] Lymphocytes/100 WBC (Bld) 34.0 % Normal 19-41 [facility] Comment on above: Performed By: #### L 500.4100, L100.0100, L3300.3500, L501.9520, L501.9985, L501.9910, L500.4050, L506.1000 ####[facility] [address] [place], [address] MCH (RBC) [Entitic mass] 28.4 pg Normal 27.0-32.0 [facility] Comment on above: Performed By: #### L 500.4100, L100.0100, L3300.3500, L501.9520, L501.9985, L501.9910, L500.4050, L506.1000 ####[facility] [address] [place], [address] MCHC (RBC) [Mass/Vol] 34.3 g/dL Normal 32-36 [facility] Comment on above: Performed By: #### L 500.4100, L100.0100, L3300.3500, L501.9520, L501.9985, L501.9910, L500.4050, L506.1000 ####[facility] [address] [place], [address] MCV (RBC) [Entitic vol] 82.8 fL Normal 80-94 [facility] Comment on above: Performed By: #### L 500.4100, L100.0100, L3300.3500, L501.9520, L501.9985, L501.9910, L500.4050, L506.1000 ####[facility] [address] [place], [address] Monocytes/100 WBC (Bld) 9.4 % Normal 0-10 [facility] Comment on above: Performed By: #### L 500.4100, L100.0100, L3300.3500, L501.9520, L501.9985, L501.9910, L500.4050, L506.1000 ####[facility] [address] [place], [address] Neutrophils/100 WBC (Bld) 50.4 % Normal 47-70 [facility] Comment on above: Performed By: #### L 500.4100, L100.0100, L3300.3500, L501.9520, L501.9985, L501.9910, L500.4050, L506.1000 ####[facility] [address] [place], [address] Nucleated RBC (Bld) [#/Vol] 0 10*3/uL Normal 0-5 [facility] Comment on above: Performed By: #### L 500.4100, L100.0100, L3300.3500, L501.9520, L501.9985, L501.9910, L500.4050, L506.1000 ####[facility] [address] [place], [address] Platelet mean volume (Bld) [Entitic vol] 10.9 fL Normal 6.2-12.0 [facility] Comment on above: Performed By: #### L 500.4100, L100.0100, L3300.3500, L501.9520, L501.9985, L501.9910, L500.4050, L506.1000 ####[facility] [address] [place], [address] Platelets (Bld) [#/Vol] 220 10*3/uL Normal 150-450 [facility] Comment on above: Performed By: #### L 500.4100, L100.0100, L3300.3500, L501.9520, L501.9985, L501.9910, L500.4050, L506.1000 ####[facility] [address] [place], [address] RBC (Bld) [#/Vol] 5.42 10*6/uL Normal 4.6-6.2 [facility] Comment on above: Performed By: #### L 500.4100, L100.0100, L3300.3500, L501.9520, L501.9985, L501.9910, L500.4050, L506.1000 ####[facility] [address] [place], [address] RDW SD 39.1 fl Normal 35.1-43.9 [facility] Comment on above: Performed By: #### L 500.4100, L100.0100, L3300.3500, L501.9520, L501.9985, L501.9910, L500.4050, L506.1000 ####[facility] [address] [place], [address] WBC (Bld) [#/Vol] 6.6 10*3/uL Normal 4.4-11.0 [facility] Comment on above: Performed By: #### L 500.4100, L100.0100, L3300.3500, L501.9520, L501.9985, L501.9910, L500.4050, L506.1000 ####[facility] [address] [place], [address] Comprehensive Metabolic Prof ilon 10-23-2023 Albumin [Mass/Vol] 3.6 g/dL Normal 3.2-5.0 [facility] Comment on above: Performed By: #### L 500.4100, L100.0100, L3300.3500, L501.9520, L501.9985, L501.9910, L500.4050, L506.1000 ####[facility] [address] [place], [address] Albumin/Globulin [Mass ratio] 0.9 {ratio} Normal 0.9-2.4 [facility] Comment on above: Performed By: #### L 500.4100, L100.0100, L3300.3500, L501.9520, L501.9985, L501.9910, L500.4050, L506.1000 ####[facility] [address] [place], [address] ALK P 84 U/L Normal 45-117 [facility] Comment on above: Performed By: #### L 500.4100, L100.0100, L3300.3500, L501.9520, L501.9985, L501.9910, L500.4050, L506.1000 ####[facility] [address] [place], [address] ALT [Catalytic activity/Vol] 82 U/L High 16-61 [facility] Comment on above: Performed By: #### L 500.4100, L100.0100, L3300.3500, L501.9520, L501.9985, L501.9910, L500.4050, L506.1000 ####[facility] [address] [place], [address] AST [Catalytic activity/Vol] 42 U/L High 15-37 [facility] Comment on above: Result Comment: Slig ht Hemolysis, Result may be falsely increased. Performed By: #### L 500.4100, L100.0100, L3300.3500, L501.9520, L501.9985, L501.9910, L500.4050, L506.1000 ####[facility] [address] [place], [address] Bilirubin [Mass/Vol] 0.30 mg/dL Normal 0.20-1.00 [facility] Comment on above: Result Comment: For patients on eltrombopag therapy, use of Dimension [place] TBIL is not recommended. Performed By: #### L 500.4100, L100.0100, L3300.3500, L501.9520, L501.9985, L501.9910, L500.4050, L506.1000 ####[facility] [address] [place], [address] BUN/CRE 15.9 RATIO Normal 10-20 [facility] Comment on above: Performed By: #### L 500.4100, L100.0100, L3300.3500, L501.9520, L501.9985, L501.9910, L500.4050, L506.1000 ####[facility] [address] [place], [address] CA,Total 8.9 mg/dL Normal 8.5-10.1 [facility] Comment on above: Performed By: #### L 500.4100, L100.0100, L3300.3500, L501.9520, L501.9985, L501.9910, L500.4050, L506.1000 ####[facility] [address] [place], [address] Chloride [Moles/Vol] 109 mmol/L High 98-107 [facility] Comment on above: Performed By: #### L 500.4100, L100.0100, L3300.3500, L501.9520, L501.9985, L501.9910, L500.4050, L506.1000 ####[facility] [address] [place], [address] CO2 [Moles/Vol] 24.0 mmol/L Normal 21.0-32.0 [facility] Comment on above: Performed By: #### L 500.4100, L100.0100, L3300.3500, L501.9520, L501.9985, L501.9910, L500.4050, L506.1000 ####[facility] [address] [place], [address] Creatinine [Mass/Vol] 1.07 mg/dL Normal 0.70-1.30 [facility] Comment on above: Result Comment: The validity of the calculated GFR GFRAA in patients over 70 years has not been determined. Clinical correlation is essential. Performed By: #### L 500.4100, L100.0100, L3300.3500, L501.9520, L501.9985, L501.9910, L500.4050, L506.1000 ####[facility] [address] [place], [address] EST GFR - AA 96 mL/min Normal >60 [facility] Comment on above: Result Comment: Afri can Nigerien GFR Calc Performed By: #### L 500.4100, L100.0100, L3300.3500, L501.9520, L501.9985, L501.9910, L500.4050, L506.1000 ####[facility] [address] [place], [address] GAP 7 Normal 5-15 [facility] Comment on above: Performed By: #### L 500.4100, L100.0100, L3300.3500, L501.9520, L501.9985, L501.9910, L500.4050, L506.1000 ####[facility] [address] [place], [address] GFR/1.73 sq M.predicted among non-blacks MDRD (S/P/Bld) [Vol rate/Area] 79 mL/min/{1.73_m2} Normal >60 [facility] Comment on above: Result Comment: Non- GFR Calc Performed By: #### L 500.4100, L100.0100, L3300.3500, L501.9520, L501.9985, L501.9910, L500.4050, L506.1000 ####[facility] [address] [place], [address] Globulin (S) [Mass/Vol] 3.9 g/dL Normal 2.2-4.2 [facility] Comment on above: Performed By: #### L 500.4100, L100.0100, L3300.3500, L501.9520, L501.9985, L501.9910, L500.4050, L506.1000 ####[facility] [address] [place], [address] Glucose [Mass/Vol] 109 mg/dL High 74-106 [facility] Comment on above: Result Comment: Fast ing Glucose result from 100 to 125 mg/dL suggests IMPAIRED HOMEOSTASIS per A.D.A. criteria. Performed By: #### L 500.4100, L100.0100, L3300.3500, L501.9520, L501.9985, L501.9910, L500.4050, L506.1000 ####[facility] [address] [place], [address] Potassium [Moles/Vol] 3.7 mmol/L Normal 3.5-5.1 [facility] Comment on above: Result Comment: Slig ht Hemolysis, Result may be falsely increased. Performed By: #### L 500.4100, L100.0100, L3300.3500, L501.9520, L501.9985, L501.9910, L500.4050, L506.1000 ####[facility] [address] [place], [address] Sodium [Moles/Vol] 140 mmol/L Normal 136-145 [facility] Comment on above: Performed By: #### L 500.4100, L100.0100, L3300.3500, L501.9520, L501.9985, L501.9910, L500.4050, L506.1000 ####[facility] [address] [place], [address] T PROT 7.5 g/dL Normal 6.4-8.2 [facility] Comment on above: Performed By: #### L 500.4100, L100.0100, L3300.3500, L501.9520, L501.9985, L501.9910, L500.4050, L506.1000 ####[facility] [address] [place], [address] Urea nitrogen [Mass/Vol] 17 mg/dL Normal 7-18 [facility] Comment on above: Performed By: #### L 500.4100, L100.0100, L3300.3500, L501.9520, L501.9985, L501.9910, L500.4050, L506.1000 ####[facility] [address] [place], [address] Hemoglobin A1con 10-23-2023 HbA1c (Bld) [Mass fraction] 5.8 % High 3.8-5.6 [facility] Comment on above: Result Comment: Norm al < 5.7 % Prediabetic 5.7 - 6.4 % Diabetic >or= 6.5 % Please note range changes. Performed By: #### L 500.4100, L100.0100, L3300.3500, L501.9520, L501.9985, L501.9910, L500.4050, L506.1000 ####[facility] [address] [place], [address] Lipid Profileon 10-23-2023 Cholesterol [Mass/Vol] 254 mg/dL High 200 [facility] Comment on above: Result Comment: <200 mg/dL Desirable 200-240 mg/dL Borderline >240 mg/dL High Risk Performed By: #### L 500.4100, L100.0100, L3300.3500, L501.9520, L501.9985, L501.9910, L500.4050, L506.1000 ####[facility] [address] [place], [address] Cholesterol in HDL [Mass/Vol] 39 mg/dL Low [facility] Comment on above: Result Comment: The drugs N-Acetylcysteine and Metamizole may falsely depress this assay. Reference Range HDL <40 mg/dL Low HDL Cholesterol HDL >or= 60 mg/dL High HDL Cholesterol Performed By: #### L 500.4100, L100.0100, L3300.3500, L501.9520, L501.9985, L501.9910, L500.4050, L506.1000 ####[facility] [address] [place], [address] LDL TNP Normal 0-130 [facility] Comment on above: Performed By: #### L 500.4100, L100.0100, L3300.3500, L501.9520, L501.9985, L501.9910, L500.4050, L506.1000 ####[facility] [address] [place], [address] Triglyceride [Mass/Vol] 433 mg/dL High [facility] Comment on above: Result Comment: The drugs N-Acetylcysteine and Metamizole may falsely depress this assay. TRIGLYCERIDE IS GREATER THAN 400 mg/dL. LDL RESULT IS INVALID AND WILL NOT BE REPORTED. Serum Triglycerides Reference Interval Normal <150 mg/dL Borderline high 150 - 199 mg/dL High 200 - 499 mg/dL Very High > or = 500 mg/dL Performed By: #### L 500.4100, L100.0100, L3300.3500, L501.9520, L501.9985, L501.9910, L500.4050, L506.1000 ####[facility] [address] [place], [address] VLDL TNP Normal 5-40 [facility] Comment on above: Performed By: #### L 500.4100, L100.0100, L3300.3500, L501.9520, L501.9985, L501.9910, L500.4050, L506.1000 ####[facility] [address] [place], [address] PSA,Total - Annual Screenon 10-23-2023 PSA,TOT SCREEN 0.29 ng/mL Normal 0.00-4.00 [facility] Comment on above: Result Comment: This test was performed using the TPSA assay method for the [employer] chemistry system. Values obtained with different assay methods cannot be used interchangably. When changing PSA assays in the course of monitoring a patient, additional sequential testing should be carried out to confirm baseline values. Performed By: #### L 500.4100, L100.0100, L3300.3500, L501.9520, L501.9985, L501.9910, L500.4050, L506.1000 ####[facility] [address] [place], [address] Thyroid Stim Hormone (TSH)on 10-23-2023 TSH 5.230 uIU/mL High 0.358-3.740 [facility] Comment on above: Performed By: #### L 500.4100, L100.0100, L3300.3500, L501.9520, L501.9985, L501.9910, L500.4050, L506.1000 ####[facility] [address] [place], [address] Basophil percentageOrdered B y: Connie Ortega on 01-30-2023 Bilirubin [Mass/Vol] 0.30 mg/dL 0.20-1.00 [facility] Comment on above: For patients on eltr ombopag therapy, use of Dimension [place] TBIL is not recommended. Chloride [Moles/Vol] 110 mmol/L 98-107 [facility] Cholesterol [Mass/Vol] 248 mg/dL <200 [facility] Comment on above: <200 mg/dL Desirable 200-240 mg/dL Borderline >240 mg/dL High Risk Glucose [Mass/Vol] 105 mg/dL 74-106 [facility] Comment on above: Fasting Glucose resu lt from 100 to 125 mg/dL suggests IMPAIRED HOMEOSTASIS per A.D.A. criteria. Potassium [Moles/Vol] 3.7 mmol/L 3.5-5.1 [facility] Protein [Mass/Vol] 7.4 g/dL 6.4-8.2 [facility] Sodium [Moles/Vol] 139 mmol/L 136-145 [facility] Triglyceride [Mass/Vol] 249 mg/dL <199 [facility] Comment on above: The drugs N-Acetylcy steine and Metamizole may falsely depress this assay.Serum Triglycerides Reference Interval Normal <150 mg/dL Borderline high 150 - 199 mg/dL High 200 - 499 mg/dL Very High > or = 500 mg/dL Laboratory - Chemistry and C hemistry - challengeOrdered By: Connie Ortega on 01-30-2023 ALP [Catalytic activity/Vol] 82 U/L 45-117 [facility] ALT [Catalytic activity/Vol] 41 U/L 16-61 [facility] CO2 [Moles/Vol] 28.0 mmol/L 21.0-32.0 [facility] Globulin (S) [Mass/Vol] 3.6 g/dL 2.2-4.2 [facility] Urea nitrogen/Creatinine [Mass ratio] 15.3 mg/mg 10-20 [facility] No Panel InformationOrdered By: Connie Ortega on 01-30-2023 Estimated GFR (MDRD) Amer 106 mL/min >60 [facility] Comment on above: GFR Calc Estimated GFR (MDRD) Non-Af Amer 88 mL/min >60 [facility] Comment on above: Non- GFR Calc Vitamin D 25-Hydroxy 30.6 ng/mL [facility] Comment on above: Vitamin D 25(OH) Sta tus Range Deficiency <20 ng/mL (50nmol/L) Insufficiency 20 - 30 ng/mL (50 - 75 nmol/L) Sufficiency 30 - 100 ng/mL (75 - 250 nmol/L) Toxicity >100 ng/mL (>250 nmol/L) Serum or plasma albumin awilda urement (mass/volume)Ordered By: Connie Ortega on 01-30-2023 Albumin [Mass/Vol] 3.8 g/dL 3.2-5.0 [facility] Serum or plasma albumin/glob ulin mass ratioOrdered By: Connie Ortega on 01-30-2023 Albumin/Globulin [Mass ratio] 1.1 {ratio} 0.9-2.4 [facility] Serum or plasma calcium awilda urement (mass/volume)Ordered By: Connie Ortega on 01-30-2023 Calcium [Mass/Vol] 9.1 mg/dL 8.5-10.1 [facility] Serum or plasma cholesterol in HDL measurement (mass/volume)Ordered By: Connie Ortega on 01-30-2023 Cholesterol in HDL [Mass/Vol] 38 mg/dL >40 [facility] Comment on above: The drugs N-Acetylcy steine and Metamizole may falsely depress this assay. Reference Range HDL <40 mg/dL Low HDL Cholesterol HDL >or= 60 mg/dL High HDL Cholesterol Serum or plasma cholesterol in VLDL measurement (mass/volume)Ordered By: Connie Ortega on 01-30-2023 Cholesterol in VLDL [Mass/Vol] 50 mg/dL 5-40 [facility] Serum or plasma creatinine m easurement (mass/volume)Ordered By: Connie Ortega on 01-30-2023 Creatinine [Mass/Vol] 0.98 mg/dL 0.70-1.30 [facility] Comment on above: The validity of the calculated GFR & GFRAA in patients over 70 years has not been determined. Clinical correlation is essential. Serum or plasma low density lipoprotein (LDL) cholesterol measurement (mass/volume)Ordered By: Connie Ortega on 01-30-2023 Cholesterol in LDL [Mass/Vol] 160 mg/dL 0-130 [facility] Serum or plasma urea nitroge n measurement (mass/volume)Ordered By: Connie Ortega on 01-30-2023 Urea nitrogen [Mass/Vol] 15 mg/dL 7-18 [facility] Thin prep Papanicolaou smear with manual screeningOrdered By: Connie Ortega on 01-30-2023 Thin prep Papanicolaou smear with manual screening 19 U/L 15-37 [facility] Thin prep Papanicolaou smear with manual screening 1 5-15 [facility] Whole blood hemoglobin A1c/t otal hemoglobin ratio (mass fraction)Ordered By: Connie Ortega on 01-30-2023 HbA1c (Bld) [Mass fraction] 5.7 % 3.8-5.6 [facility] Comment on above: Normal < 5.7 % Predi abetic 5.7 - 6.4 % Diabetic >or= 6.5 % Please note range changes. Absolute lymphocyte countOrd ered By: Dr. Ortega on 07-25-2022 Lymphocytes Auto (Unsp spec) [#/Vol] 1.88 10*3/uL 0.83-4.51 [facility] Basophil percentageOrdered B y: Dr. Ortega on 07-25-2022 Basophils/100 WBC (Bld) 0.7 % 0-1 [facility] Bilirubin [Mass/Vol] 0.50 mg/dL 0.20-1.00 [facility] Comment on above: For patients on eltr ombopag therapy, use of Dimension [place] TBIL is not recommended. Chloride [Moles/Vol] 107 mmol/L 98-107 [facility] Cholesterol [Mass/Vol] 269 mg/dL <200 [facility] Comment on above: <200 mg/dL Desirable 200-240 mg/dL Borderline >240 mg/dL High Risk Eosinophils/100 WBC (Bld) 4.5 % 0-5 [facility] Glucose [Mass/Vol] 102 mg/dL 74-106 [facility] Comment on above: Fasting Glucose resu lt from 100 to 125 mg/dL suggests IMPAIRED HOMEOSTASIS per A.D.A. criteria. Neutrophils (Bld) [#/Vol] 2.9 10*3/uL 2.0-7.7 [facility] Neutrophils/100 WBC (Bld) 52.3 % 47-70 [facility] Potassium [Moles/Vol] 3.9 mmol/L 3.5-5.1 [facility] Protein [Mass/Vol] 7.6 g/dL 6.4-8.2 [facility] Sodium [Moles/Vol] 141 mmol/L 136-145 [facility] Triglyceride [Mass/Vol] 256 mg/dL <199 [facility] Comment on above: The drugs N-Acetylcy steine and Metamizole may falsely depress this assay.Serum Triglycerides Reference Interval Normal <150 mg/dL Borderline high 150 - 199 mg/dL High 200 - 499 mg/dL Very High > or = 500 mg/dL WBC (Bld) [#/Vol] 5.6 10*3/uL 4.4-11.0 [facility] Blood erythrocytes count (nu mber/volume)Ordered By: Dr. Ortega on 07-25-2022 RBC (Bld) [#/Vol] 5.45 10*6/uL 4.6-6.2 [facility] Blood hemoglobin measurement (mass/volume)Ordered By: Dr. Ortega on 07-25-2022 Hemoglobin (Bld) [Mass/Vol] 15.6 g/dL 13.0-16.5 [facility] Blood lymphocytes/100 leukoc ytesOrdered By: Dr. Ortega on 07-25-2022 Lymphocytes/100 WBC (Bld) 33.6 % 19-41 [facility] Blood monocytes/100 leukocyt esOrdered By: Dr. Ortega on 07-25-2022 Monocytes/100 WBC (Bld) 8.4 % 0-10 [facility] Blood platelet mean volumeOr dered By: Dr. Ortega on 07-25-2022 Platelet mean volume (Bld) [Entitic vol] 10.8 fL 6.2-12.0 [facility] Determination of erythrocyte mean corpuscular volume (MCV)Ordered By: Dr. Ortega on 07-25-2022 MCV (RBC) [Entitic vol] 83.5 fL 80-94 [facility] Hematocrit Auto (Bld) [Volum e fraction]Ordered By: Dr. Ortega on 07-25-2022 Hematocrit (Bld) [Volume fraction] 45.5 % 40-54 [facility] Laboratory - Chemistry and C hemistry - challengeOrdered By: Dr. Ortega on 07-25-2022 ALP [Catalytic activity/Vol] 75 U/L 45-117 [facility] ALT [Catalytic activity/Vol] 47 U/L 16-61 [facility] CO2 [Moles/Vol] 25.0 mmol/L 21.0-32.0 [facility] Globulin (S) [Mass/Vol] 3.7 g/dL 2.2-4.2 [facility] Urea nitrogen/Creatinine [Mass ratio] 17.6 mg/mg 10-20 [facility] Laboratory - Hematology and Cell countsOrdered By: Dr. Ortega on 07-25-2022 Erythrocyte distribution width (RBC) [Entitic vol] 38.3 fL 35.1-43.9 [facility] Erythrocyte distribution width (RBC) [Ratio] 12.7 % 11.6-14.6 [facility] Immature granulocytes/100 WBC (Bld) 0.500 % 0.0-0.9 [facility] Comment on above: IG% - Immature Granu locytes (promyelocytes, myelocytes and metamyelocytes) > 1% indicates that a LEFT SHIFT is Present. MCH (RBC) [Entitic mass] 28.6 pg 27.0-32.0 [facility] Nucleated RBC/100 WBC (Bld) [Ratio] 0 % 0-5 [facility] MCHC Auto (RBC) [Mass/Vol]Or dered By: Dr. Ortega on 07-25-2022 MCHC (RBC) [Mass/Vol] 34.3 g/dL 32-36 [facility] No Panel InformationOrdered By: Dr. Ortega on 07-25-2022 Estimated GFR (MDRD) Amer 95 mL/min >60 [facility] Comment on above: GFR Calc Estimated GFR (MDRD) Non-Af Amer 79 mL/min >60 [facility] Comment on above: Non- GFR Calc Insulin Level 15.5 mU/L 2.6-37.6 [facility] Platelets bldOrdered By: Dr. Ortega on 07-25-2022 Platelets (Bld) [#/Vol] 221 10*3/uL 150-450 [facility] Serum or plasma albumin awilda urement (mass/volume)Ordered By: Dr. Ortega on 07-25-2022 Albumin [Mass/Vol] 3.9 g/dL 3.2-5.0 [facility] Serum or plasma albumin/glob ulin mass ratioOrdered By: Dr. Ortega on 07-25-2022 Albumin/Globulin [Mass ratio] 1.1 {ratio} 0.9-2.4 [facility] Serum or plasma calcium awilda urement (mass/volume)Ordered By: Dr. Ortega on 07-25-2022 Calcium [Mass/Vol] 9.1 mg/dL 8.5-10.1 [facility] Serum or plasma cholesterol in HDL measurement (mass/volume)Ordered By: Dr. Ortega on 07-25-2022 Cholesterol in HDL [Mass/Vol] 41 mg/dL >40 [facility] Comment on above: The drugs N-Acetylcy steine and Metamizole may falsely depress this assay. Reference Range HDL <40 mg/dL Low HDL Cholesterol HDL >or= 60 mg/dL High HDL Cholesterol Serum or plasma cholesterol in VLDL measurement (mass/volume)Ordered By: Dr. Ortega on 07-25-2022 Cholesterol in VLDL [Mass/Vol] 51 mg/dL 5-40 [facility] Serum or plasma creatinine m easurement (mass/volume)Ordered By: Dr. Ortega on 07-25-2022 Creatinine [Mass/Vol] 1.08 mg/dL 0.70-1.30 [facility] Comment on above: The validity of the calculated GFR & GFRAA in patients over 70 years has not been determined. Clinical correlation is essential. Serum or plasma low density lipoprotein (LDL) cholesterol measurement (mass/volume)Ordered By: Dr. Ortega on 07-25-2022 Cholesterol in LDL [Mass/Vol] 177 mg/dL 0-130 [facility] Serum or plasma urea nitroge n measurement (mass/volume)Ordered By: Dr. Ortega on 07-25-2022 Urea nitrogen [Mass/Vol] 19 mg/dL 7-18 [facility] Thin prep Papanicolaou smear with manual screeningOrdered By: Dr. Ortega on 07-25-2022 Thin prep Papanicolaou smear with manual screening 22 U/L 15-37 [facility] Thin prep Papanicolaou smear with manual screening 9 5-15 [facility] Whole blood hemoglobin A1c/t otal hemoglobin ratio (mass fraction)Ordered By: Dr. Ortega on 07-25-2022 HbA1c (Bld) [Mass fraction] 5.6 % 3.8-5.6 [facility] Comment on above: Normal < 5.7 % Predi abetic 5.7 - 6.4 % Diabetic >or= 6.5 % Please note range changes. Basophil percentageon 2021 Testosterone [Mass/Vol] 349 ng/dL 264-916 [facility] Work Phone: Comment on above: Adult male reference interval is based on a population ofhealthy nonobese males (BMI <30) between 19 and 39 yearsold. Briana, et.al. JCEM 2017,102;[id number]. PMID:[id number]. Free testosterone percentage on 01-08-2022 Testosterone Free/Testosterone.total [Mass fraction] 3.11 % 1.50-4.20 [facility] Work Phone: Comment on above: Performed at: [facility] [place] [address] [id number] Director: Sesar Yepez PhD, Phone: [phone] at: - [facility] [address] [id number] Director: Nuzhat Harkins MD, Phone: [phone] Laboratory - Chemistry and C hemistry - challengeon 01-08-2022 Free T4 [Mass/Vol] 0.90 ng/dL 0.76-1.46 [facility] Work Phone: No Panel Informationon 01-08 Free Triiodothyronine (T3) pg/dL 2.9 pg/mL 2.18-3.98 [facility] Work Phone: Thyroid Stimulating Hormone (TSH) 3.76 uIU/mL 0.358-3.74 [facility] Work Phone: Vitamin D 25-Hydroxy 15.5 ng/mL [facility] Work Phone: Comment on above: Vitamin D 25(OH) Sta tus Range Deficiency <20 ng/mL (50nmol/L) Insufficiency 20 - 30 ng/mL (50 - 75 nmol/L) Sufficiency 30 - 100 ng/mL (75 - 250 nmol/L) Toxicity >100 ng/mL (>250 nmol/L) Serum or plasma testosterone free measurement (mass/volume)on 01-08-2022 Testosterone Free [Mass/Vol] 10.85 ng/dL 5.00-21.00 [facility] Work Phone: Absolute lymphocyte counton 12-20-2021 Lymphocytes Auto (Unsp spec) [#/Vol] 2.16 10*3/uL 0.83-4.51 [facility] Work Phone: Basophil percentageon 2021 Basophils/100 WBC (Bld) 0.6 % 0-1 [facility] Work Phone: Bilirubin [Mass/Vol] 0.50 mg/dL 0.20-1.00 [facility] Work Phone: Comment on above: For patients on eltr ombopag therapy, use of Dimension [place] TBIL is not recommended. Chloride [Moles/Vol] 108 mmol/L 98-107 [facility] Work Phone: Cholesterol [Mass/Vol] 257 mg/dL <200 [facility] Work Phone: Comment on above: <200 mg/dL Desirable 200-240 mg/dL Borderline >240 mg/dL High Risk Eosinophils/100 WBC (Bld) 4.2 % 0-5 [facility] Work Phone: Glucose [Mass/Vol] 106 mg/dL 74-106 [facility] Work Phone: Comment on above: Fasting Glucose resu lt from 100 to 125 mg/dL suggests IMPAIRED HOMEOSTASIS per A.D.A. criteria. Neutrophils (Bld) [#/Vol] 3.6 10*3/uL 2.0-7.7 [facility] Work Phone: Neutrophils/100 WBC (Bld) 54.0 % 47-70 [facility] Work Phone: Potassium [Moles/Vol] 4.3 mmol/L 3.5-5.1 [facility] Work Phone: Protein [Mass/Vol] 7.3 g/dL 6.4-8.2 [facility] Work Phone: Sodium [Moles/Vol] 139 mmol/L 136-145 [facility] Work Phone: Triglyceride [Mass/Vol] 259 mg/dL <199 [facility] Work Phone: Comment on above: The drugs N-Acetylcy steine and Metamizole may falsely depress this assay.Serum Triglycerides Reference Interval Normal <150 mg/dL Borderline high 150 - 199 mg/dL High 200 - 499 mg/dL Very High > or = 500 mg/dL WBC (Bld) [#/Vol] 6.7 10*3/uL 4.4-11.0 [facility] Work Phone: Blood erythrocytes count (nu mber/volume)on 12-20-2021 RBC (Bld) [#/Vol] 5.26 10*6/uL 4.6-6.2 [facility] Work Phone: Blood hemoglobin measurement (mass/volume)on 12-20-2021 Hemoglobin (Bld) [Mass/Vol] 15.4 g/dL 13.0-16.5 [facility] Work Phone: Blood lymphocytes/100 leukoc yteson 12-20-2021 Lymphocytes/100 WBC (Bld) 32.3 % 19-41 [facility] Work Phone: Blood monocytes/100 leukocyt eson 12-20-2021 Monocytes/100 WBC (Bld) 8.5 % 0-10 [facility] Work Phone: Blood platelet mean volumeon 12-20-2021 Platelet mean volume (Bld) [Entitic vol] 10.6 fL 6.2-12.0 [facility] Work Phone: Determination of erythrocyte mean corpuscular volume (MCV)on 12-20-2021 MCV (RBC) [Entitic vol] 84.4 fL 80-94 [facility] Work Phone: Hematocrit Auto (Bld) [Volum e fraction]on 12-20-2021 Hematocrit (Bld) [Volume fraction] 44.4 % 40-54 [facility] Work Phone: Laboratory - Chemistry and C hemistry - challengeon 12-20-2021 ALP [Catalytic activity/Vol] 79 U/L 45-117 [facility] Work Phone: ALT [Catalytic activity/Vol] 76 U/L 16-61 [facility] Work Phone: CO2 [Moles/Vol] 26.0 mmol/L 21.0-32.0 [facility] Work Phone: Globulin (S) [Mass/Vol] 3.6 g/dL 2.2-4.2 [facility] Work Phone: Urea nitrogen/Creatinine [Mass ratio] 18.6 mg/mg 10-20 [facility] Work Phone: Laboratory - Hematology and Cell countson 12-20-2021 Erythrocyte distribution width (RBC) [Entitic vol] 39.9 fL 35.1-43.9 [facility] Work Phone: Erythrocyte distribution width (RBC) [Ratio] 13.0 % 11.6-14.6 [facility] Work Phone: Immature granulocytes/100 WBC (Bld) 0.400 % 0.0-0.9 [facility] Work Phone: Comment on above: IG% - Immature Granu locytes (promyelocytes, myelocytes and metamyelocytes) > 1% indicates that a LEFT SHIFT is Present. MCH (RBC) [Entitic mass] 29.3 pg 27.0-32.0 [facility] Work Phone: Nucleated RBC/100 WBC (Bld) [Ratio] 0 % 0-5 [facility] Work Phone: MCHC Auto (RBC) [Mass/Vol]on 12-20-2021 MCHC (RBC) [Mass/Vol] 34.7 g/dL 32-36 [facility] Work Phone: No Panel Informationon 12-20 Estimated GFR (MDRD) Amer 91 mL/min >60 [facility] Work Phone: Comment on above: GFR Calc Estimated GFR (MDRD) Non-Af Amer 75 mL/min >60 [facility] Work Phone: Comment on above: Non- GFR Calc Prostate Specific Antigen Screen 0.14 ng/mL 0.00-4.00 [facility] Work Phone: Comment on above: This test was perfor med using the TPSA assay method for the[employer]OV[employer] chemistry system. Values obtained with differentassay methods cannot be used interchangably.When changing PSA assays in the course of monitoring apatient, additional sequential testing should be carriedout to confirm baseline values. Platelets bldon 12-20-2021 Platelets (Bld) [#/Vol] 208 10*3/uL 150-450 [facility] Work Phone: Serum or plasma albumin awilda urement (mass/volume)on 12-20-2021 Albumin [Mass/Vol] 3.7 g/dL 3.2-5.0 [facility] Work Phone: Serum or plasma albumin/glob ulin mass ratioon 12-20-2021 Albumin/Globulin [Mass ratio] 1.0 {ratio} 0.9-2.4 [facility] Work Phone: Serum or plasma calcium awilda urement (mass/volume)on 12-20-2021 Calcium [Mass/Vol] 8.8 mg/dL 8.5-10.1 [facility] Work Phone: Serum or plasma cholesterol in HDL measurement (mass/volume)on 12-20-2021 Cholesterol in HDL [Mass/Vol] 41 mg/dL >40 [facility] Work Phone: Comment on above: The drugs N-Acetylcy steine and Metamizole may falsely depress this assay. Reference Range HDL <40 mg/dL Low HDL Cholesterol HDL >or= 60 mg/dL High HDL Cholesterol Serum or plasma cholesterol in VLDL measurement (mass/volume)on 12-20-2021 Cholesterol in VLDL [Mass/Vol] 52 mg/dL 5-40 [facility] Work Phone: Serum or plasma creatinine m easurement (mass/volume)on 12-20-2021 Creatinine [Mass/Vol] 1.13 mg/dL 0.70-1.30 [facility] Work Phone: Comment on above: The validity of the calculated GFR & GFRAA in patients over 70 years has not been determined. Clinical correlation is essential. Serum or plasma low density lipoprotein (LDL) cholesterol measurement (mass/volume)on 12-20-2021 Cholesterol in LDL [Mass/Vol] 164 mg/dL 0-130 [facility] Work Phone: Serum or plasma urea nitroge n measurement (mass/volume)on 12-20-2021 Urea nitrogen [Mass/Vol] 21 mg/dL 7-18 [facility] Work Phone: Thin prep Papanicolaou smear with manual screeningon 12-20-2021 Thin prep Papanicolaou smear with manual screening 33 U/L 15-37 [facility] Work Phone: Thin prep Papanicolaou smear with manual screening 5 5-15 [facility] Work Phone: Whole blood hemoglobin A1c/t otal hemoglobin ratio (mass fraction)on 12-20-2021 HbA1c (Bld) [Mass fraction] 5.8 % 3.8-5.6 [facility] Work Phone: Comment on above: Normal < 5.7 % Predi abetic 5.7 - 6.4 % Diabetic >or= 6.5 % Please note range changes. Basophil percentageon 2021 Bilirubin [Mass/Vol] 0.50 mg/dL 0.20-1.00 [facility] Work Phone: Comment on above: For patients on eltr ombopag therapy, use of Dim[place] TBIL is not recommended. Chloride [Moles/Vol] 109 mmol/L 98-107 [facility] Work Phone: Cholesterol [Mass/Vol] 176 mg/dL <200 [facility] Work Phone: Comment on above: <200 mg/dL Desirable 200-240 mg/dL Borderline >240 mg/dL High Risk Glucose [Mass/Vol] 97 mg/dL 74-106 [facility] Work Phone: Potassium [Moles/Vol] 3.8 mmol/L 3.5-5.1 [facility] Work Phone: Protein [Mass/Vol] 7.4 g/dL 6.4-8.2 [facility] Work Phone: Sodium [Moles/Vol] 140 mmol/L 136-145 [facility] Work Phone: Triglyceride [Mass/Vol] 131 mg/dL <199 [facility] Work Phone: Comment on above: The drugs N-Acetylcy steine and Metamizole may falsely depress this assay.Serum Triglycerides Reference Interval Normal <150 mg/dL Borderline high 150 - 199 mg/dL High 200 - 499 mg/dL Very High > or = 500 mg/dL Laboratory - Chemistry and C hemistry - challengeon 05-24-2021 ALP [Catalytic activity/Vol] 74 U/L 45-117 [facility] Work Phone: ALT [Catalytic activity/Vol] 58 U/L 16-61 [facility] Work Phone: CO2 [Moles/Vol] 25.0 mmol/L 21.0-32.0 [facility] Work Phone: Globulin (S) [Mass/Vol] 3.8 g/dL 2.2-4.2 [facility] Work Phone: Urea nitrogen/Creatinine [Mass ratio] 14.3 mg/mg 10-20 [facility] Work Phone: No Panel Informationon 05-24 Estimated GFR (MDRD) Amer 92 mL/min >60 [facility] Work Phone: Comment on above: GFR Calc Estimated GFR (MDRD) Non-Af Amer 76 mL/min >60 [facility] Work Phone: Comment on above: Non- GFR Calc Serum or plasma albumin awilda urement (mass/volume)on 05-24-2021 Albumin [Mass/Vol] 3.6 g/dL 3.2-5.0 [facility] Work Phone: Serum or plasma albumin/glob ulin mass ratioon 05-24-2021 Albumin/Globulin [Mass ratio] 0.9 {ratio} 0.9-2.4 [facility] Work Phone: Serum or plasma calcium awilda urement (mass/volume)on 05-24-2021 Calcium [Mass/Vol] 8.8 mg/dL 8.5-10.1 [facility] Work Phone: Serum or plasma cholesterol in HDL measurement (mass/volume)on 05-24-2021 Cholesterol in HDL [Mass/Vol] 49 mg/dL >40 [facility] Work Phone: Comment on above: The drugs N-Acetylcy steine and Metamizole may falsely depress this assay. Reference Range HDL <40 mg/dL Low HDL Cholesterol HDL >or= 60 mg/dL High HDL Cholesterol Serum or plasma cholesterol in VLDL measurement (mass/volume)on 05-24-2021 Cholesterol in VLDL [Mass/Vol] 26 mg/dL 5-40 [facility] Work Phone: Serum or plasma creatinine m easurement (mass/volume)on 05-24-2021 Creatinine [Mass/Vol] 1.12 mg/dL 0.70-1.30 [facility] Work Phone: Comment on above: The validity of the calculated GFR & GFRAA in patients over 70 years has not been determined. Clinical correlation is essential. Serum or plasma low density lipoprotein (LDL) cholesterol measurement (mass/volume)on 05-24-2021 Cholesterol in LDL [Mass/Vol] 101 mg/dL 0-130 [facility] Work Phone: Serum or plasma urea nitroge n measurement (mass/volume)on 05-24-2021 Urea nitrogen [Mass/Vol] 16 mg/dL 7-18 [facility] Work Phone: Thin prep Papanicolaou smear with manual screeningon 05-24-2021 Thin prep Papanicolaou smear with manual screening 26 U/L 15-37 [facility] Work Phone: Thin prep Papanicolaou smear with manual screening 6 5-15 [facility] Work Phone: Whole blood hemoglobin A1c/t otal hemoglobin ratio (mass fraction)on 05-24-2021 HbA1c (Bld) [Mass fraction] 5.8 % 3.8-5.6 [facility] Work Phone: Comment on above: Normal < 5.7 % Predi abetic 5.7 - 6.4 % Diabetic >or= 6.5 % Please note range changes. Absolute lymphocyte counton 05-12-2021 Lymphocytes Auto (Unsp spec) [#/Vol] 1.86 10*3/uL 0.83-4.51 [facility] Work Phone: Basophil percentageon 2021 Basophils/100 WBC (Bld) 0.8 % 0-1 [facility] Work Phone: Chloride [Moles/Vol] 109 mmol/L 98-107 [facility] Work Phone: Eosinophils/100 WBC (Bld) 3.4 % 0-5 [facility] Work Phone: Glucose [Mass/Vol] 99 mg/dL 74-106 [facility] Work Phone: Neutrophils (Bld) [#/Vol] 3.7 10*3/uL 2.0-7.7 [facility] Work Phone: Neutrophils/100 WBC (Bld) 55.9 % 47-70 [facility] Work Phone: Potassium [Moles/Vol] 3.7 mmol/L 3.5-5.1 [facility] Work [facility]: Sodium [Moles/Vol] 140 mmol/L 136-145 [facility] Work Phone: WBC (Bld) [#/Vol] 6.6 10*3/uL 4.4-11.0 [facility] Work Phone: Blood erythrocytes count (nu mber/volume)on 05-12-2021 RBC (Bld) [#/Vol] 5.44 10*6/uL 4.6-6.[facility]: Blood hemoglobin measurement (mass/volume)on 05-12-2021 Hemoglobin (Bld) [Mass/Vol] 16.0 g/dL 13.0-16.5 [facility] Work Phone: Blood lymphocytes/100 leukoc yteson 05-12-2021 Lymphocytes/100 WBC (Bld) 28.4 % 19-41 [facility] Work Phone: Blood monocytes/100 leukocyt eson 05-12-2021 Monocytes/100 WBC (Bld) 11.0 % 0-10 [facility] Work Phone: Blood platelet mean volumeon 05-12-2021 Platelet mean volume (Bld) [Entitic vol] 10.8 fL 6.2-12.0 [facility] Work Phone: Determination of erythrocyte mean corpuscular volume (MCV)on 05-12-2021 MCV (RBC) [Entitic vol] 83.8 fL 80-94 [facility] Work Phone: Hematocrit Auto (Bld) [Volum e fraction]on 05-12-2021 Hematocrit (Bld) [Volume fraction] 45.6 % 40-54 [facility] Work Phone: Laboratory - Chemistry and C hemistry - challengeon 05-12-2021 CO2 [Moles/Vol] 27.0 mmol/L 21.0-32.0 [facility] Work Phone: Urea nitrogen/Creatinine [Mass ratio] 18.6 mg/mg 10-20 [facility] Work Phone: Laboratory - Hematology and Cell countson 05-12-2021 Erythrocyte distribution width (RBC) [Entitic vol] 37.8 fL 35.1-43.9 [facility] Work Phone: Erythrocyte distribution width (RBC) [Ratio] 12.5 % 11.6-14.6 [facility] Work Phone: Immature granulocytes/100 WBC (Bld) 0.500 % 0.0-0.9 [facility] Work Phone: Comment on above: IG% - Immature Granu locytes (promyelocytes, myelocytes and metamyelocytes) > 1% indicates that a LEFT SHIFT is Present. MCH (RBC) [Entitic mass] 29.4 pg 27.0-32.0 [facility] Work Phone: Nucleated RBC/100 WBC (Bld) [Ratio] 0 % 0-5 [facility] Work Phone: MCHC Auto (RBC) [Mass/Vol]on 05-12-2021 MCHC (RBC) [Mass/Vol] 35.1 g/dL 32-36 [facility] Work Phone: No Panel Informationon 05-12 Estimated Creatinine Clearance Calc 75.47 ml/min [facility] Work Phone: Estimated GFR (MDRD) Amer 86 mL/min >60 [facility] Work Phone: Comment on above: GFR Calc Estimated GFR (MDRD) Non-Af Amer 71 mL/min >60 [facility] Work Phone: Comment on above: Non- GFR Calc Platelets bldon 05-12-2021 Platelets (Bld) [#/Vol] 222 10*3/uL 150-450 [facility] Work Phone: Serum or plasma calcium awilda urement (mass/volume)on 05-12-2021 Calcium [Mass/Vol] 9.3 mg/dL 8.5-10.1 [facility] Work Phone: Serum or plasma creatinine m easurement (mass/volume)on 05-12-2021 Creatinine [Mass/Vol] 1.18 mg/dL 0.70-1.30 [facility] Work Phone: Comment on above: The validity of the calculated GFR & GFRAA in patients over 70 years has not been determined. Clinical correlation is essential. Serum or plasma urea nitroge n measurement (mass/volume)on 05-12-2021 Urea nitrogen [Mass/Vol] 22 mg/dL 7-18 [facility] Work Phone: Thin prep Papanicolaou smear with manual screeningon 05-12-2021 Thin prep Papanicolaou smear with manual screening 4 5-15 [facility] Work Phone: HFPon 10-14-2018 Bili Indirect 0.3 mg/dL Normal [facility] ([place] Comment on above: Result Comment: Calc ulated by Rule Performed By: #### L IPID, HFP #### [address] [address] Albumin [Mass/Vol] 3.8 G/dL Normal 3.5-5.0 [facility] ([place]) Comment on above: Performed By: #### L IPID, HFP #### [address] [address] Albumin/Globulin [Mass ratio] 1.2 {ratio} Normal 1.1-2.5 [facility] ([place] Comment on above: Performed By: #### L IPID, HFP #### [address] [address] ALP [Catalytic activity/Vol] 80 U/L Normal 40-135 [facility] ([place] Comment on above: Performed By: #### L IPID, HFP #### [address] [address] ALT [Catalytic activity/Vol] 74 U/L High 10-35 [facility] ([place] Comment on above: Performed By: #### L IPID, HFP #### [address] [address] AST [Catalytic activity/Vol] 34 U/L Normal 10-40 [facility] ([place] Comment on above: Performed By: #### L IPID, HFP #### [address] [address] Bili Direct 0.1 mg/dL Normal 0.0-0.2 [facility] ([place] Comment on above: Performed By: #### L IPID, HFP #### [address] [address] Bili Total 0.4 mg/dL Normal 0.2-1.0 [facility] ([place] Comment on above: Performed By: #### L IPID, HFP #### [address] [address] Globulin (S) [Mass/Vol] 3.3 G/dL Normal [facility] ([place]) Comment on above: Performed By: #### L IPID, HFP #### [address] [address] Protein [Mass/Vol] 7.1 G/dL Normal 6.4-8.2 [facility] ([place] Comment on above: Performed By: #### L IPID, HFP #### [address] [address] LIPIDon 10-14-2018 Cholesterol [Mass/Vol] 209 mg/dL High 0-200 [facility] ([place]) Comment on above: Result Comment: Chol esterol Reference Interval: Less than 200 Desirable 200-239 Borderline high risk 240 and above High risk Performed By: #### L IPID, HFP #### [address] [address] Cholesterol in HDL [Mass/Vol] 32 mg/dL Low 40-60 [facility] ([place] Comment on above: Performed By: #### L IPID, HFP #### [address] [address] Cholesterol in LDL [Mass/Vol] Not Valid Normal 0-130 [facility] ([place] Comment on above: Result Comment: Trig lyceride >400 invalidates the calculated LDL. Performed By: #### L IPID, HFP #### [address] [address] Triglyceride [Mass/Vol] 562 mg/dL High 0-150 [facility] ([place]) Comment on above: Result Comment: Trig lyceride Reference Interval: Less than 150 Normal 150-199 Borderline high risk 200-499 High risk 500 or higher Very high risk Performed By: #### L IPID, HFP #### [address] [address] HFPon 04-18-2018 Bili Indirect 0.5 mg/dL Normal [facility] ([place] Comment on above: Result Comment: Calc ulated by Rule Performed By: #### L IPID, HFP #### [address] [address] Albumin [Mass/Vol] 3.9 G/dL Normal 3.5-5.0 [facility] ([place]) Comment on above: Performed By: #### L IPID, HFP #### [address] [address] Albumin/Globulin [Mass ratio] 1.1 {ratio} Normal 1.1-2.5 [facility] ([place] Comment on above: Performed By: #### L IPID, HFP #### [address] [address] ALP [Catalytic activity/Vol] 70 U/L Normal 40-135 [facility] ([place] Comment on above: Performed By: #### L IPID, HFP #### [address] [address] ALT [Catalytic activity/Vol] 85 U/L High 10-35 [facility] ([place] Comment on above: Performed By: #### L IPID, HFP #### [address] [address] AST [Catalytic activity/Vol] 36 U/L Normal 10-40 [facility] ([place] Comment on above: Performed By: #### L IPID, HFP #### [address] [address] Bili Direct 0.1 mg/dL Normal 0.0-0.2 [facility] [place] Comment on above: Performed By: #### L IPID, HFP #### [address] [address] Bili Total 0.6 mg/dL Normal 0.2-1.0 [facility] [place] Comment on above: Performed By: #### L IPID, HFP #### [address] [address] Globulin (S) [Mass/Vol] 3.4 G/dL Normal [facility] [place] Comment on above: Performed By: #### L IPID, HFP #### [address] [address] Protein [Mass/Vol] 7.3 G/dL Normal 6.4-8.2 [facility] ([place] Comment on above: Performed By: #### L IPID, HFP #### [address] [address] LIPIDon 04-18-2018 Cholesterol [Mass/Vol] 201 mg/dL High 0-200 [facility] [place] Comment on above: Result Comment: Chol esterol Reference Interval: Less than 200 Desirable 200-239 Borderline high risk 240 and above High risk Performed By: #### L IPID, HFP #### [address] [address] Cholesterol in HDL [Mass/Vol] 44 mg/dL Normal 40-60 [facility] ([place] Comment on above: Performed By: #### L IPID, HFP #### [address] [address] Cholesterol in LDL [Mass/Vol] 122 mg/dL Normal 0-130 [facility] [place] Comment on above: Performed By: #### L IPID, HFP #### [address] [address] Triglyceride [Mass/Vol] 175 mg/dL High 0-150 [facility] [place] Comment on above: Result Comment: Trig lyceride Reference Interval: Less than 150 Normal 150-199 Borderline high risk 200-499 High risk 500 or higher Very high risk Performed By: #### L IPID, HFP #### [address] [address] LIPIDon 01-07-2018 Cholesterol [Mass/Vol] 229 mg/dL High 0-200 [facility] [place] Comment on above: Result Comment: Chol esterol Reference Interval: Less than 200 Desirable 200-239 Borderline high risk 240 and above High risk Performed By: #### L IPID #### [address] [address] Cholesterol in HDL [Mass/Vol] 37 mg/dL Low 40-60 [facility] ([place] Comment on above: Performed By: #### L IPID #### [address] [address] Cholesterol in LDL [Mass/Vol] 151 mg/dL High 0-130 [facility] ([place] Comment on above: Performed By: #### L IPID #### [address] [address] Triglyceride [Mass/Vol] 206 mg/dL High 0-150 [facility] ([place]) Comment on above: Result Comment: Trig lyceride Reference Interval: Less than 150 Normal 150-199 Borderline high risk 200-499 High risk 500 or higher Very high risk Performed By: #### L IPID #### [address] [address] Vital Signs Date Time Vital Sign Value Performing Clinician Geovani baptiste 08-09-2024 13:05-0400 Diastolic blood pressure 80 mm[Hg] Dr. Connie Ortega MD Work Phone: [facility] 08-09-2024 13:05-0400 Heart rate 97 /min Dr. Connie Ortega MD Work Phone: [facility] 08-09-2024 13:05-0400 SaO2% (BldA) [Mass fraction] 97 % Dr. Connie Ortega MD Work Phone: [facility] 08-09-2024 13:05-0400 Systolic blood pressure 112 mm[Hg] Dr. Connie Ortega MD Work Phone: [facility] 08-09-2024 11:27-0400 Body height 172.[address] Connie Ortega MD Work Phone: [facility] 08-09-2024 11:27-0400 Body mass index (BMI) [Ratio] 28.9 kg/m2 Dr. Connie Ortega MD Work Phone: [facility] 08-09-2024 11:27-0400 Body temperature 97.6 [degF] Dr. Connie Ortega MD Work Phone: [facility] 08-09-2024 11:27-0400 Body weight 86.[address] Connie Ortega MD Work Phone: [facility] 08-09-2024 11:27-0400 Diastolic blood pressure 78 mm[Hg] Dr. Connie Ortega MD Work Phone: [facility] 08-09-2024 11:27-0400 Heart rate 97 /min Dr. Connie Ortega MD Work Phone: [facility] 08-09-2024 11:27-0400 Respiratory rate 16 /min Dr. Connie Ortega MD Work Phone: [facility] 08-09-2024 11:27-0400 SaO2% (BldA) [Mass fraction] 98 % Dr. Connie Ortega MD Work Phone: [facility] 08-09-2024 11:27-0400 Systolic blood pressure 128 mm[Hg] Dr. Connie Ortega MD Work Phone: [facility] 05-22-2024 16:05-0400 Body mass index (BMI) [Ratio] 28.8 kg/m2 Dr. Connie Ortega MD Work Phone: [facility] 05-22-2024 16:05-0400 Body temperature 98.1 [degF] Dr. Connie Ortega MD Work Phone: [facility] 05-22-2024 16:05-0400 Body weight 85.[address] Connie Ortega MD Work Phone: [facility] 05-22-2024 16:05-0400 Diastolic blood pressure 60 mm[Hg] Dr. Connie Ortega MD Work Phone: [facility] 05-22-2024 16:05-0400 Heart rate 75 /min Dr. Connie Ortega MD Work Phone: [facility] 05-22-2024 16:05-0400 SaO2% (BldA) [Mass fraction] 97 % Dr. Connie Ortega MD Work Phone: [facility] 05-22-2024 16:05-0400 Systolic blood pressure 120 mm[Hg] Dr. Connie Ortega MD Work Phone: [facility] 09-21-2022 22:08-0400 Body height 172.[address] Connie Ortega Work Phone: [facility] 09-21-2022 22:08-0400 Body mass index (BMI) [Ratio] 27.8 kg/m2 Dr. Connie Ortega Work Phone: [facility] 09-21-2022 22:08-0400 Body temperature 97.3 [degF] Dr. Connie Ortega Work Phone: [facility] 09-21-2022 22:08-0400 Body weight 82.[address] Connie Ortega Work Phone: [facility] 09-21-2022 22:08-0400 Diastolic blood pressure 94 mm[Hg] Dr. Connie Ortega Work Phone: [facility] 09-21-2022 22:08-0400 Heart rate 82 /min Dr. Connie Ortega Work Phone: [facility] 09-21-2022 22:08-0400 Respiratory rate 18 /min Dr. Connie Ortega Work Phone: [facility] 09-21-2022 22:08-0400 SaO2% (BldA) [Mass fraction] 96 % Dr. Connie Ortega Work Phone: [facility] 09-21-2022 22:08-0400 Systolic blood pressure 136 mm[Hg] Dr. Connie Ortega Work Phone: [facility] 07-30-2022 15:53-0400 Body height 172.[address] Connie Ortega Work Phone: [facility] 07-30-2022 15:53-0400 Body mass index (BMI) [Ratio] 27.2 kg/m2 Dr. Connie Ortega Work Phone: [facility] 07-30-2022 15:53-0400 Body temperature 98.4 [degF] Dr. Connie Ortega Work Phone: [facility] 07-30-2022 15:53-0400 Body weight 81.[address] Connie Ortega Work Phone: [facility] 07-30-2022 15:53-0400 Diastolic blood pressure 87 mm[Hg] Dr. Connie Ortega Work Phone: [facility] 07-30-2022 15:53-0400 Heart rate 110 /min Dr. Connie Ortega Work Phone: [facility] 07-30-2022 15:53-0400 Respiratory rate 16 /min Dr. Connie Ortega Work Phone: [facility] 07-30-2022 15:53-0400 SaO2% (BldA) [Mass fraction] 97 % Dr. Connie Ortega Work Phone: [facility] 07-30-2022 15:53-0400 Systolic blood pressure 129 mm[Hg] Dr. Connie Ortega Work Phone: [facility] 01-14-2022 14:01-0500 Body height 172.[address] Connie Ortega Work Phone: [facility] Work Phone: 01-14-2022 14:01-0500 Body mass index (BMI) [Ratio] 28 kg/m2 Dr. Connie Ortega Work Phone: [facility] Work Phone: 01-14-2022 14:01-0500 Body temperature 97.2 [degF] Dr. Connie Ortega Work Phone: [facility] Work Phone: 01-14-2022 14:01-0500 Body weight 83.[address] Connie Ortega Work Phone: [facility] Work Phone: 01-14-2022 14:01-0500 Diastolic blood pressure 89 mm[Hg] Dr. Connie Ortega Work Phone: [facility] Work Phone: 01-14-2022 14:01-0500 Heart rate 72 /min Dr. Connie Ortega Work Phone: [facility] Work Phone: 01-14-2022 14:01-0500 Respiratory rate 18 /min Dr. Connie Ortega Work Phone: [facility] Work Phone: 01-14-2022 14:01-0500 SaO2% (BldA) [Mass fraction] 96 % Dr. Connie Ortega Work Phone: [facility] Work Phone: 01-14-2022 14:01-0500 Systolic blood pressure 139 mm[Hg] Dr. Connie Ortega Work Phone: [facility] Work Phone: 12-29-2021 15:03-0500 Body height 170.[address] Connie Ortega Work Phone: [facility] Work Phone: 12-25-2021 15:53-0400 Body temperature 97.4 [degF] Dr. Connie Ortega Work Phone: [facility] Work Phone: 12-25-2021 15:53-0400 Body weight 85.[address] Connie Ortega Work Phone: [facility] Work Phone: 12-25-2021 15:53-0400 Diastolic blood pressure 78 mm[Hg] Dr. Connie Ortega Work Phone: [facility] Work Phone: 12-25-2021 15:53-0400 Heart rate 78 /min Dr. Connie Ortega Work Phone: [facility] Work Phone: 12-25-2021 15:53-0400 Respiratory rate 18 /min Dr. Connie Ortega Work Phone: [facility] Work Phone: 12-25-2021 15:53-0400 SaO2% (BldA) [Mass fraction] 97 % Dr. Connie Ortega Work Phone: [facility] Work Phone: 12-25-2021 15:53-0400 Systolic blood pressure 117 mm[Hg] Dr. Connie Ortega Work Phone: [facility] Work Phone: 11-30-2021 17:35-0400 Body height 170.18 cm [facility] Work Phone: 11-30-2021 17:35-0400 Body mass index (BMI) [Ratio] 29.1 kg/m2 [facility] Work Phone: 11-30-2021 17:35-0400 Body temperature 98.2 [degF] [facility] Work Phone: 11-30-2021 17:35-0400 Body weight 84.3 kg [facility] Work Phone: 11-30-2021 17:35-0400 Diastolic blood pressure 90 mm[Hg] [facility] Work Phone: 11-30-2021 17:35-0400 Heart rate 95 /min [facility] Work Phone: 11-30-2021 17:35-0400 Respiratory rate 14 /min [facility] Work Phone: 11-30-2021 17:35-0400 SaO2% (BldA) [Mass fraction] 97 % [facility] Work Phone: 11-30-2021 17:35-0400 Systolic blood pressure 142 mm[Hg] [facility] Work Phone: 06-04-2021 15:26-0400 Body height 170.[address] Brayden Leon Work Phone: [facility] Work Phone: 06-04-2021 15:26-0400 Body mass index (BMI) [Ratio] 29.1 kg/m2 Dr. Brayden Leon Work Phone: [facility] Work Phone: 06-04-2021 15:26-0400 Body temperature 97.4 [degF] Dr. Brayden Leon Work Phone: [facility] Work Phone: 06-04-2021 15:26-0400 Body weight 84.[address] Brayden Leon Work Phone: [facility] Work Phone: 06-04-2021 15:26-0400 Diastolic blood pressure 82 mm[Hg] Dr. Brayden Leon Work Phone: [facility] Work Phone: 06-04-2021 15:26-0400 Heart rate 89 /min Dr. Brayden Leon Work Phone: [facility] Work Phone: 06-04-2021 15:26-0400 Respiratory rate 16 /min Dr. Brayden Leon Work Phone: [facility] Work Phone: 06-04-2021 15:26-0400 SaO2% (BldA) [Mass fraction] 98 % Dr. Brayden Leon Work Phone: [facility] Work Phone: 06-04-2021 15:26-0400 Systolic blood pressure 122 mm[Hg] Dr. Brayden Leon Work Phone: [facility] Work Phone: 05-13-2021 01:19-0400 Diastolic blood pressure 88 mm[Hg] [facility] Work Phone: 05-13-2021 01:19-0400 Heart rate 83 /min [facility] Work Phone: 05-13-2021 01:19-0400 Respiratory rate 20 /min [facility] Work Phone: 05-13-2021 01:19-0400 SaO2% (BldA) [Mass fraction] 99 % [facility] Work Phone: 05-13-2021 01:19-0400 Systolic blood pressure 127 mm[Hg] [facility] Work Phone: 05-12-2021 22:12-0400 Body height 170.18 cm [facility] Work Phone: 05-12-2021 22:12-0400 Body mass index (BMI) [Ratio] 27.8 kg/m2 [facility] Work Phone: 05-12-2021 22:12-0400 Body temperature 97.6 [degF] [facility] Work Phone: 05-12-2021 22:12-0400 Body weight 80.73 kg [facility] Work Phone: Encounters Encounter Date Encounter Type Care Provider Facility Start: 09-26-2024 ambulatory [facility] Facility :[facility] Start: 08-09-2024 End: 08-09-[address] Tonia Avila MD -[facility] Work Phone: Start: 08-09-2024 End: 08-09-[address] Connie Ortega MD Work Phone: [facility] Work Phone: Start: 08-09-2024 End: 08-[facility] Start: 08-05-2024 End: 08-05-[address] Connie Ortega MD Work Phone: [facility] Work Phone: Start: 08-05-2024 End: 08-05-[address] Connie Ortega MD -Laboratory Work Phone: Start: 08-05-2024 End: 08-05-2024 ambulatory [facility] Facility:[facility] Start: 05-22-2024 End: 05-22-2024 Patient encounter procedure Stan Lino MD -[facility] Work Phone: Start: 05-22-2024 End: 05-22-2024 ambulatory [facility] Facility:[facility] Start: 01-27-2024 ambulatory [facility] Facility :[facility] Start: 01-19-2024 End: 01-19-2024 ambulatory [facility] Facility:[facility] Start: 12-15-2023 End: 12-15-2023 Telephone encounter Amadeo Patel MD Work Phone: Pain Management Comment on above: Insurance Authorizat ion (MRI Denial ) Start: 11-15-2023 End: 11-15-2023 ambulatory AMADEO PATEL Facility:[facility] Start: 11-15-2023 End: 11-15-2023 Patient encounter procedure [...] upcoming appointment Start: 10-28-2023 End: 10-28-2023 ambulatory [facility] Facility:[facility] Start: 10-23-2023 End: 10-23-2023 ambulatory [facility] Facility:[facility] Start: 01-30-2023 End: 01-30-2023 ambulatory [facility] Work Phone: Start: 01-30-2023 End: 01-30-2023 Patient encounter procedure [facility] Work Phone: Start: 10-21-2022 Telephone encounter Hudson Guevara on DO Work Phone: Neurology Comment on above: Received Outside Med [facility] Records ([facility]) Start: 09-21-2022 End: 09-22-2022 Emergency department patient visit Dr. Connie Ortega Work Phone: [facility] Work Phone: Start: 07-30-2022 End: 07-30-[address] Connie Ortega Work Phone: [facility] Start: 07-25-2022 End: 07-25-[address] Connie Ortega Work Phone: [facility] Work Phone: Start: 07-25-2022 End: 07-25-[address] Cnonie Ortega Work Phone: [facility] Start: 03-04-2022 End: 03-04-[address] Connie Ortega Work Phone: [facility] Work Phone: Start: 03-04-2022 End: 03-04-[address] oCnnie Ortega Work Phone: [facility]Sleep Lab Start: 02-11-2022 End: 02-11-[address] Connie Ortega Work Phone: [facility] Work Phone: Start: 02-11-2022 End: 02-11-[address] Connie Ortega Work Phone: [facility] Start: 01-14-2022 End: 01-14-[address] Connie Ortega Work Phone: [facility]Pulmonary Medicine [facility] Start: 01-14-2022 Non-patient / Non-visit Dr. Savana Ortega Work Phone: [facility] Internal Medicine Start: 01-08-2022 End: 01-08-[address] Connie Ortega Work Phone: [facility]Laboratory, [facility] Start: 12-29-2021 End: 12-29-[address] Connie Ortega Work Phone: [facility] Orthopaedic [facility] Start: 12-25-2021 End: 12-25-[address] Connie Ortega Work Phone: [facility] Start: 12-20-2021 End: 12-20-[address] Connie Ortega Work Phone: [facility] Work Phone: Start: 12-20-2021 End: 12-20-[address] Connie Ortega Work Phone: [facility] Start: 11-30-2021 End: 11-30-2021 [facility] Start: 08-29-2021 End: 08-29-[address] Brayden Leon Work Phone: [facility]Sleep [facility] Start: 06-04-2021 End: 06-04-[address] Brayden Leon Work Phone: [facility] Internal Medicine Start: 05-24-2021 End: 05-24-2021 Patient encounter procedure [facility] Start: 05-12-2021 End: 05-13-2021 Emergency department patient visit [facility] Procedures Date Procedure Procedure Detail Performing Clinician Start: 08-09-[address] Amanda Ortega MD Work Phone: Comment on above: Performed at: [address] [id number] Director: Sesar Yepez PhD, Phone: [phone] Start: 08-09-2024 Antibody to centrome re measurement Dr. Connie Ortega MD Work Phone: Comment on above: Test not performed Previous reported re sult: TNP AIEdited by: INFCE on 08/11/24:0908 AMENDED REPORT 08/11/24 0908 ANTI-CENT B previously reported as: Test not performed Start: 08-09-2024 Antibody to extracta ble nuclear antigen measurement Dr. Connie Ortega MD Work Phone: Comment on above: Test not performed Previous reported re sult: TNP AIEdited by: INFCE on 08/11/24:0908 AMENDED REPORT 08/11/24 0908 MAYES Ab previously reported as: Test not performed Start: 08-09-2024 Antibody to STEVO-[address] Connie Ortega MD Work Phone: Comment on above: Test not performed Previous reported re sult: TNP AIEdited by: INFCE on 08/11/24:0908 AMENDED REPORT 08/11/24 09 ANTI-STEVO previously reported as: Test not performed Start: 08-09-2024 Antibody to lupus La protein measurement Dr. Connie Ortega MD Work Phone: Start: 08-09-2024 Antibody to SS-A measurement Dr. Connie Ortega MD Work Phone: Start: 08-09-[address] Connie Ortega MD Work Phone: Comment on above: Test not performed Previous reported re sult: TNP AIEdited by: INFCE on 08/11/24:0908 AMENDED REPORT 08/11/24 0908 ANTICHROMATIN previously reported as: Test not performed Start: 08-09-2024 FLAKER OPERATOR antibody measurement Dr. Connie Ortega MD Work Phone: Comment on above: Test not performed Previous reported re sult: TNP AIEdited by: INFCE on 08/11/24:0908 AMENDED REPORT 08/11/24 09 FLAKER OPERATOR Ab previously reported as: Test not performed Start: 08-05-2024 Vitamin D, 25-hydrox y measurement Dr. Connie Ortega MD Work Phone: Comment on above: Vitamin D StatusDefi ciency: <20 ng/mL (50nmol/L)Insufficiency: 20-30 ng/mL (50-75 nmol/L)Sufficiency: 30-100 ng/mL (75-250 nmol/L)Toxicity: >100 ng/mL (>250 nmol/L) Start: 02-11-2022 MRI of cervical spine Lee [...] Treatment Date Care Activity Detail Author Start: 08-09-2024 Patient referral [facility] Work Phone: Start: 08-09-2024 C reactive protein [Mass/volume] in Serum or Plasma [facility] Start: 08-09-2024 Cyclic citrullinated peptide IgG Ab [Units/volume] in Serum or Plasma [facility] Start: 08-09-2024 Erythrocyte sedimentation rate [facility] Start: 08-09-2024 Human leukocyte anti gen B27 antigen phenotyping [facility] Start: 08-09-2024 Nuclear Ab [Presence ] in Serum [facility] Start: 08-09-2024 Rheumatoid factor [Presence] in Serum [facility] Start: 08-09-2024 [facility] Start: 11-15-2023 End: 11-15-2023 Patient encounter procedure 11/15/2023 3:30 PM EDT Office Visit Pain Management [address] [address] Amadeo Patel MD [address] [facility] [id number] [place] [address] NECK PAIN Pain Management Comment on above: NECK PAIN Start: 10-24-2023 Covid-19 Vaccine ( season) Covid-19 Vaccine ( season) [facility] Start: 10-24-2023 Covid-19 Vaccine ( season) Covid-19 Vaccine ( season) [facility] Start: 10-24-2023 Influenza vaccination Influenza Vacc ine (#1) [facility] Start: 2022 Diabetes Screening Diabetes Screenin g [facility] Start: 2022 Screening for malign ant neoplasm of colon [facility] Start: 10-23-2022 Influenza vaccination INFLUENZA (#1) [facility] Start: 02-22-2022 DEPRESSION ASSESSMENT DEPRESSION ASS ESSMENT [facility] Start: 12-29-2021 X-ray of cervical spine Cerv S pine 2 or 3 Views [facility] Work Phone: Start: 12-29-2021 XR Cervical spine 2 or 3 Views [facility] Work Phone: Start: 11-30-2021 X-ray of lumbar spin e, two or three views Lumbar Spine 2 or 3 Views [facility] Work Phone: Start: 11-30-2021 XR Lumbar spine 2 or 3 Views [facility] Work Phone: Start: 2012 Lipid panel Lipid Screening [facility] Start: 2012 LIPID SCREEN LIPID SCREEN [facility] Start: 1996 Hepatitis B Vaccine (1 of 3 - 19+ 3-dose series) Hepatitis B Vaccine (1 of 3 - 19+ 3-dose series) [facility] Start: 1996 Urine microalbumin profile [facility] Start: 11-07-1995 Anxiety Screening Anxiety Screening [facility] Start: 11-07-1995 Depression Screening Depression Scre ening [facility] Start: 11-07-1995 HEPATITIS C SCREENING HEPATITIS C [facility] Start: 11-07-1995 Hepatitis C screening Hepatitis C [facility] Start: 11-07-1995 HIV SCREENING HIV SCREENING [facility] Start: 11-07-1995 HIV screening HIV Screening [facility] Start: 05-06-1978 COVID-19 VACCINE (#1) COVID-19 VACCI NE (#1) [facility] Start: 1977 HEPATITIS B (1 of 3 - 3-dose series) HEPATITIS B (1 of 3 - 3-dose series) [facility] Antibody to lupus La protein measurement [facility] Antibody to SS-A measurement [facility] CBC W Auto Different ial panel - Blood [facility] Work Phone: DNA double strand Ab [Units/volume] in Serum [facility] Hemoglobin A1c/Hemoglobin.total in Blood [facility] Work Phone: Hemoglobin A1c/Hemoglobin.total in Blood [facility] HLA-B27 [Presence] b y PERICO with probe detection [facility] Lipid 1995 panel - S linda or Plasma [facility] Work Phone: Lipid [facility] panel - S linda or Plasma [facility] MR Brain WO and W contrast IV [facility] Work Phone: MR Cervical spine [facility] Work Phone: End: 12-14-2024 MR Cervical spine WO contrast MRI CERVICAL SPINE WO IVCON Radiology Routine Spinal stenosis of cervical region 1 Occurrences starting 11/15/2023 until 12/14/2024 [facility] Work Phone: Comment on above: 1 Occurrences starti ng 11/15/2023 until 12/14/2024 Patient Education [facility] Work Phone: Patient referral [facility] Work Phone: Prostate specific antigen measurement [facility] Work Phone: T4 free measurement [facility] Work Phone: Testosterone measurement [facility] Work Phone: Thyroid stimulating hormone measurement [facility] Work Phone: Tilt table test [facility] Triiodothyronine, fr ee measurement [facility] Work Phone: Vitamin D, 25-hydrox y measurement [facility] Work Phone: Vitamin D, 25-hydrox y measurement [facility] Immunizations Immunization Date Immunization Notes Care Provider Fa rajeevty 06-14-2020 Covid (Moderna) Dr. Connie marquez MD Work Phone: [facility] 05-17-2020 Covid (Moderna) Dr. Connie marquez MD Work Phone: [facility] 09-06-2012 hepatitis A vaccine, unspecified formulation Hudson Velazquez DO Work Phone: [facility] Work Phone: 12-12-2011 influenza virus vaccine, unspecified formulation Hudson Velazquez DO Work Phone: [facility] Work Phone: 12-19-2009 influenza virus vaccine, unspecified formulation Hudson Velazquez DO Work Phone: [facility] Work Phone: Payers Date Payer Category Payer Self-pay [id number] 2020 Private Health Insurance [facility] [id number] 2020-Present [phone] [address] [place] [address] O [id number] 2020 Unknown [id number] Private Health Insurance [id number] Unknown [id number] Unknown [id number] Unknown [id number] Unknown [id number] Unknown [id number] Unknown [id number] Unknown [id number] Unknown [id number] Unknown [id number] Unknown [id number] Social History Date Type Detail Facility Start: 05-12-2021 End: 09-22-2022 Tobacco smoking status MIIS Unknown if ever smoked [facility] Start: 09-15-2019 None [facility] Start: 09-15-2019 Spouse/ Signif icant Other [facility] Start: 1975 Sex Assigned At Male [facility] Start: 08-09-2024 Tobacco smoking stat [facility] Never smoked tobacco [facility] Start: 04-05-2006 Alcohol intake Current non-dr crusher dry ground mica of alcohol (finding) [facility] Start: 07-18-2020 End: 01-29-2023 History of Social function [facility] Start: 07-18-2020 End: 01-29-2023 Area Deprivation Index [facility] National Score (1-10 0), lower number is lower risk Not on file [facility] Start: 1975 Sex Assigned At Not on file [facility] Goals Date Patient Goal Desired Activity /State Mental Status Date Assessment Result Facility 09-21-2022 Cognitive function Level Of Cons ciousness Awake;Alert;Appropriate;Follow s Commands [facility] Work Phone: 05-12-2021 Cognitive function Level Of Cons ciousness Awake;Alert;Appropriate;Follow s Commands [facility] Work Phone: Clinical Notes 10-21-2022 to 05-22-2024 Note Date & Type Note Facility 05-22-2024 Evaluation note Diagnosis Onset Date Resolution Dizziness acute May 22 4:04pm SG (obstructive sleep apnea) acute May 22, 2024 4:04pm History of snoring resolved May 22, 2024 4:04pm Cephalgia inactive May 22 4:04pm Neck pain acute August 09 11:22am SG (obstructive sleep apnea) acute August 09, 2024 11:22am Prediabetes acute August 09 11:22am Establishing care with new doctor, encounter for noneactive August 09, 2024 11:22am [facility] Work Phone: 1(649) 795-209203-31-2025 Evaluation note* Diagnosis Onset Date Resolution Status Admit Date Dizziness acute May 22 4:04pm SG (obstructive sleep apnea) acute May 22, 2024 4:04pm History of snoring resolved May 22, 2024 4:04pm Cephalgia inactive May 22 4:04pm Dizziness acute August 09 11:22am Neck pain acute August 09 11:22am SG (obstructive sleep apnea) acute August 09, 2024 11:22am Prediabetes acute August 09 11:22am Vitamin D deficiency acute August 09, 2024 11:22am Screening for depression noneactive August 09, 2024 11:22am Immunization declined noneactive Jul 11:22am Encounter for screening for malignant neoplasm of colon noneactive August 09, 2024 11:22am Establishing care with new doctor, encounter for noneactive August 09, 2024 11:22am Mixed hyperlipidemia noneactive August 09, 2024 11:22am [facility] Work Phone: 1(224) 193-777410-23-2024 Telephone encounter Note* Telephone Encounter - Glenna Moses RN - 12/15/2023 10:26 AM EDT Received voicemail on 12/15/2023 at 0949: Denzel, my name is Zak Alicja. [address] Amadeo Patel's patient. He ordered an MRI of my neck, and it looks like the insurance denied it. They asked me to call back and see what the office and Dr. Patel is going to do or next steps. That's why I'm calling. Please give me a call back - [phone]. Thanks. Office to await MRI denial email from Pre-Access Denials Support Team. [facility]10-23-2024 Miscellaneous Notes* Telephone Encounter - Glenna Moses RN - 12/15/2023 10:26 AM EDT Received voicemail on 12/15/2023 at 0949: Denzel, [...] Please give me a call back - [phone]. Thanks. Office to await MRI denial email from Pre-Access Denials Support Team. documented in this encounterC[facility]24 NoteHNO ID: [id number] Author: AMADEO PATEL MD Service: ? Author Type: Physician Type: Progress Notes Filed: 12/15/2023 07:40 Note Text: [facility] Date: November 15, 2023 [...] has included: Medication(s): ibuprofen, Tylenol Physical therapy: [facility] in [place], [place] Chiropractic: Last year Acupuncture: 1 month ago with no relief. Injection(s): Cervical facet injections with Dr. Ruiz in [place] with no relief. ALLERGIES Allergen Reactions Celexa [...] Panel: No results found for: UQCANN, UQBNZL, [id number], UQAMPH, UQMAMP, UQBUPRE, UQNORBUP, UQMTHD, UQEDDP, UQTRAM, [...] diagnostic tests reviewed for today's visit: The [facility] EMR was reviewed during the visit IMAGING [...] facilitate improvement of p (more content not included)...[facility]09-23-2024 History of Present illness Narrative* Amadeo Patel MD - 11/15/2023 3:21 PM EDT [facility] Date: November 15, 2023 [...] has included: Medication(s): ibuprofen, Tylenol Physical therapy: [facility] in [place], [place] Chiropractic: Last year Acupuncture: 1 month ago with no relief. Injection(s): Cervical facet injections with Dr. Ruiz in [place] with no relief. ALLERGIES Allergen Reactions Celexa [...] Panel: No results found for: UQCANN, UQBNZL, XTT6QBK, UQAMPH, UQMAMP, UQBUPRE, UQNORBUP, UQMTHD, UQEDDP, UQTRAM, [...] diagnostic tests reviewed for today's visit: The [facility] EMR was reviewed during thevisit IMAGING STUDIES: No new imaging studies were [...] but also diagnostic information that procedures provide. intermediate teacher use of any opioid pain medication is [...] with patient. The patient is in agreement withthe above and verbalized understanding. I have discussed [...] treatment plans will be discussed during your follow- up appointment. If you do not have a follow-up appointment and wish to discuss any issues, please set up an appointment. 3. It is my practice to not fill disability or any other insurance-related forms/documentation. Allof the office notes, study results, and other [...] record for those providers who practice within [facility] or with access to [facility] via MD Connect, or via letter. documented in this encounterC[facility] Miscellaneous Notes* Telephone Encounter - Zena Martinezria - 10/21/2022 3:46 PM EDT Received faxed report of medical records done at [facility] on 09/24/2022. Uploaded via [employer], will be available in [employer] for review shortly. documented in this encounterCleveland Clinic [facility] HospitalEvaluation noteNo assessment information availableWWayne HealthCare [facility] Work Phone: Evaluation note* Diagnosis Onset Date Resolution Status Cervicogenic headache acute High cholesterol acute Hypertriglyceridemia, familial acute Sleep apnea in adult acute [facility] Work Phone: Evaluation note* Diagnosis Onset Date Resolution Status Cervicogenic headache acute High cholesterol acute Hypertriglyceridemia, familial acute Loss of libido acute Segmental and somatic dysfunction of cervical region acute Sleep apnea in adult acute Tinnitus acute Vitamin D deficiency acute Cervicogenic headache acute HNP (herniated nucleus pulposus), cervical acute [facility] Work Phone: Evaluation note* Diagnosis Onset Date Resolution Status Cervicogenic headache acute High cholesterol acute Hypertriglyceridemia, familial acute Loss of libido acute Segmental and somatic dysfunction of cervical region acute Sleep apnea in adult acute Tinnitus acute Vitamin D deficiency acute Cervicogenic headache acute HNP (herniated nucleus pulposus), cervical acute SG (obstructive sleep apnea) acute [facility] Work Phone: Evaluation note* Diagnosis Onset Date Resolution Status Elevated hemoglobin A1c acut e Hypertriglyceridemia, familial acute Insulin resistance acute SG (obstructive sleep apnea) acute Seasonal allergies acute [facility] Work Phone: Evaluation note* Diagnosis Spinal stenosis of cervical region- Primary Spinal stenosis in cervical region Displacement of cervical intervertebral disc without myelopathy Cervical myofascial pain syndrome Mylagia and myositis, unspecified [facility] Additional Instructions Continue to ice, perform gentle stretching. Use naproxen, Flexeril for your back pain. Use the eyedrops for 7 days every 4 hours while awake.[facility] Work Phone: Hospital Discharge instructions Additional Instructions Please follow-up with neurology for repeat evaluation of your recurrent headaches. If you have any further concerns or worsening of symptoms please return to the ER for repeat evaluationWWayne [facility] Work Phone: Reason for referral (narrative)No reason for referral information availableBloomington Meadows [facility] Work Phone: Summary Purpose Family History No Family History Records Found Relationship Condition Age at Onset Recorded Date/T lazara father Diabetes mellitus Unknown Myocardial infarction 80 mother Hyperlipidemia Unknown Relationship Condition Age at Onset Recorded Date/T lazara father Diabetes mellitus Unknown Myocardial infarction 80 Cerebrovascular accident (CVA) Unknown mother Hyperlipidemia Unknown Tremor Unknown Advance Directives No Advanced Directives Records Found Advance Directive Response Recorded Date/ Time Living Will No May 12, 2021 10:37pm Power of Felt Finisher No May 12 10:37pm Advance Directive Response Recorded Date/ Time Living Will No November 30 2 5:53pm Power of Felt Finisher No November 30 022 5:53pm Advance Directive Response Recorded Date/ Time Living Will No November 30 2 4:53pm Power of Felt Finisher No November 30 2 022 4:53pm Advance Directive Response Recorded Date/ Time Living Will No September 21, 2022 11:50pm Power of Felt Finisher No September 21 3 11:50pm Advance Directive Response Recorded Date/ Time Living Will No September 21, 2022 10:50pm Power of Felt Finisher No September 21 3 10:50pm Chief Complaint [...] sleep apnea) Seasonal allergies Chief Complaint eorder Chief Complaint Admit Date TINNITUS/ HEADACHE May 22, 2024 4:0 4pm INT LAB ORDERS August 05, 2024 8:02 am DIRECTOR OF RESTAURANT. EST CARE - EX MIYA PT August 09, 2024 11:22am Reason for Visit Admit Date Dizziness May 22, 2024 4:0 4pm SG (obstructive sleep apnea) April 4:04pm History of snoring May 22, 2024 4:0 4pm Cephalgia May 22, 2024 4:0 4pm Neck pain August 09, 2024 11:2 2am SG (obstructive sleep apnea) August 09, 2024 11:22am Prediabetes August 09, 2024 11:2 2am Establishing care with new doctormaria a for August 09, 2024 11:22am Reason for Visit Admit Date Dizziness May 22, 2024 4:0 4pm SG (obstructive sleep apnea) April 4:04pm History of snoring May 22, 2024 4:0 4pm Cephalgia May 22, 2024 4:0 4pm Dizziness August 09, 2024 11:2 2am Neck pain August 09, 2024 11:2 2am SG (obstructive sleep apnea) August 09, 2024 11:22am Prediabetes August 09, 2024 11:2 2am Vitamin D deficiency August 09, 2024 11: 22am Screening for depression August 09, 2024 11:22am Immunization declined August 09, 2024 11 :22am Encounter for screening for malignant ne oplasm of colon August 09, 2024 11:22am Establishing care with new doctor, maria a nter for August 09, 2024 11:22am Mixed hyperlipidemia August 09, 2024 11: 22am Reason for Referral Specialty Diagnoses / Procedures Referred By Contac t Referred To Contact MR IMAGING Diagnoses Spinal stenosis of cervical region Procedures MRI CERVICAL SPINE WO IVCON MRI SPINAL CANAL CERVICAL W/O CONTRAST MATRL Amadeo Patel MD [facility] [place] [address] [place] [address] Referral ID Status Reason Start Date Expiration Date Visits Requested Visits Authorized [id number] New Request Auto-Generat ed Referral 11/15/2023 12/14/2024 1 1 Additional Source Comments (unrecognized sect ion and content) No Status Records FoundNo Status Records FoundNo Status Records Found INFORMATION SOURCE (unrecogn ized section and content) DATE CREATED AUTHOR 11/10/2018 [facility] ([place]) DATE CREATED AUTHOR AUTHOR'S ORGANIZ ATION 12/20/2023 [facility] DATE CREATED AUTHOR AUTHOR'S ORGANIZ ATION 09/25/2024 [facility] Care Teams (unrecognized sec tion and [...] Primary Care Provider Active Dr. Clarence Prasad DO Emergency Provider Active Educational Director Relationship Specialty Start Date End Date [address] [place] [address] Referring Ophthalmology 09/29/22 Educational Director Relationship Specialty Start Date End Date [address] [place] [address] Referring Ophthalmology 09/29/22 Educational Director Relationship Specialty Start Date End Date [address] [place] [address] Referring Ophthalmology 09/29/22 Educational Director Relationship Specialty Start Date End Date [address] [place] [address] Referring Ophthalmology 09/29/22 Team Status: Active Member Role Status Dates Dr. Tonia Avila MD Primary Care Provider Active Team Status: Inactive Member Role Status Dates Dr. Connie Ortega MD Primary Care Provider Active Start: May 22, 2024 End: May 22, 2024 Dr. Connie Ortega MD Referring Provider Active Start: May 22, 2024 End: May 22, 2024 Stan HUERTA, PA Attending Provider Active Start: May 22, 2024 End: May 22, 2024 Team Status: Active Member Role Status Dates Dr. Connie Ortega MD Attending Provider Active Start: August 05, 2024 Dr. Connie Ortega MD Referring Provider Active Start: August 05, 2024 Dr. Tonia Avila MD Primary Care Provider Active Start: August 05, 2024 Team Status: Inactive Member Role Status Dates Dr. Connie Ortega MD Referring Provider Active Start: August 09, 2024 End: August 09, 2024 Dr. Tonia Avila MD Primary Care Provider Active Start: August 09, 2024 End: August 09, 2024 Dr. Tonia Avila MD Attending Provider Active Start: August 09, 2024 End: August 09, 2024 Team Status: Active Member Role Status Dates Dr. Tonia Avila MD Primary Care Provider Active Start: August 09, 2024 Dr. Tonia Avila MD Attending Provider Active Start: August 09, 2024 Dr. Tonia Avila MD Referring Provider Active Start: August 09, 2024 Team Status: Inactive Member Role Status Dates Dr. Connie Ortega MD Attending Provider Active Start: August 05, 2024 End: August 05, 2024 Dr. Connie Ortega MD Referring Provider Active Start: August 05, 2024 End: August 05, 2024 Dr. Tonia Avila MD Primary Care Provider Active Start: August 05, 2024 End: August 05, 2024 Team Status: Inactive Member Role Status Dates Dr. Tonia Avila MD Primary Care Provider Active Start: August 09, 2024 End: August 09, 2024 Dr. Tonia Avila MD Attending Provider Active Start: August 09, 2024 End: August 09, 2024 Dr. Tonia Avila MD Referring Provider Active Start: August 09, 2024 End: August 09, 2024 Source Comments (unrecognize d section and content) In the event this informatio n is protected by the Federal Confidentiality of Alcohol and Drug Abuse Patient Records regulations: The Federal rules restrict any use of the information to criminally investigate or prosecute any alcohol or drug abuse patient.[facility] HospitalIn the event this information is protected by the Federal Confidentiality of Alcohol and Drug Abuse Patient Records regulations: The Federal rules restrict any use of the information to criminally investigate or prosecute any alcohol or drug abuse patient.[facility] Hospital[facility] the event this information is protected by the Federal Confidentiality of Alcohol and Drug Abuse Patient Records regulations: The Federal rules restrict any use of the information to criminally investigate or prosecute any alcohol or drug abuse patient.[facility] Hospital[facility] the event this information is protected by the Federal Confidentiality of Alcohol and Drug Abuse Patient Records regulations: The Federal rules restrict any use of the information to criminally investigate or prosecute any alcohol or drug abuse patient.[facility] Reason for Visit (unrecogniz ed section and content) Reason Comments Received Outside Medical Records [facility] Reason Comments Neck Pain Reason Comments Insurance [...] BE BASED ON THE PRIMARY CLINICAL RECORDS. [employer] [facility]. provides no warranty or guarantee of the accuracy or completeness of information in this document.
--- NOTE | 2024-09-26 16:58 | PCM.TILTTABL ---
Staff Staff: Ramya Santamaria and Rasheeda Bautista Summary Pre Test Resting HR: 70 Pre Test Resting BP: 127/84 Minimum Test HR: 62 Maximum Test HR: 80 Minimum Test BP: 112/93 Maximum Test BP: 133/95 Reason for Test Termination: Reached Maximum Test Time Physician Tilt Table Report Patient's Physicians Primary Care Physician: Tonia Avila Indications/Diagnosis: Dizziness Procedure Comments: Patient was brought to the noninvasive lab in the postabsorptive nonsedated state. Informed consent was obtained. Initial heart rate on the EKG was 70 bpm with a blood pressure 127/84 mmHg. The patient was then put in the 70 degree head upright tilt position for total duration of 30 minutes. The patient had no symptomatology and heart rate and blood pressure were noted to be stable throughout the test. The patient was then put back in the recumbent position and blood pressure and heart rate recorded. Summary: Negative head upright tilt table test.
[2024-09-26 17:02] VITALS: BP 112/93; BP 127/84; BP 133/95
== END | disposition home or self-care (01) ==
PROVIDERS: PCP Internal Medicine; Referring Provider Internal Medicine; Visit Provider Internal Medicine
DX: R42 Dizziness and giddiness (principal)
CPT/HCPCS: 36415; 80048; 85025; 93660; A4216

== ENCOUNTER 2024-12-15 07:47 | Day surgery (SDC) | payer OTHER, SELFPAY ==
[2024-12-15] VITALS (8 sets, daily range): BP systolic 102–125; BP diastolic 71–93; PULSE 66–77; RESP 16; TEMP 36.1–36.3; O2SAT 95–100; BMI 26.9
[2024-12-15] MEDS: Lactated Ringers 1,000 ML 15 ML IV (08:08)
--- NOTE | 2024-12-15 09:11 | PRE.ANES_ITS ---
ASA Classification* ASA Classification ASA Classification: 2 Assessment & Plan Anesthesia* Anesthesia Assessment Anesthesia Assessment: Discussed sedation and/or anesthesia options, risks, benefits, and alternatives with patient/parents/legal guardian/POA. Questions invited. The patient/parents/legal guardian/POA seems to understand and agrees to proceed with anesthesia plan. Reviewed the physical assessment, medical history, allergy history and patient home medications list prior to surgery/procedure/anesthetic and documented any changes. Performed airway and anesthesia risk assessments. Anesthesia Type Anesthesia Type: MAC History Source History Obtained from:: Patient and Chart Anesthesia Focused Assessment* Temperature: 97.3 F Pulse Rate: 76 Blood Pressure: 125/93 Respiratory Rate: 16 Pulse Ox: 95 Oxygen Delivery Method: Room Air Airway Assessment Mouth opens: >3 cm Mallampati Score: III Teeth Condition: Caps/Crowns (Patient has a couple crowns. They are tight.) Neck Range of motion (ROM): Full ROM Labs Anesthesia Preop lab: CBC WBC, (4.4-11.0) 5.6 K/mm3 09/23/24, :39 RBC, (4.6-6.2) 5.31 M/mm3 09/23/24, 09:39 Hgb, (13.0-16.5) 15.2 g/dL 09/23/24, :39 Hct, (40-54) 44.3 % 09/23/24, :39 Plt Count, (150-450) 229 K/mm3 09/23/24, 09:39 CHEMISTRY Potassium, (3.3-5.1) 3.9 mmol/L 09/23/24, :39 Sodium, (133-145) 139 mmol/L 09/23/24, :39 BUN, (4-19) 14 mg/dL 09/23/24, 09:39 Creatinine, (0.70-1.20) 0.97 mg/dL 09/23/24, :39 Glucose, (70-99) 102 mg/dL H 09/23/24, 09:39 TSH, (0.300-4.200) 3.970 uIU/mL 08/05/24, 08:11 COAG Pre-Assessment Diagnosis/Proposed Procedure Planned Operative Procedure(s): Colonoscopy - Open Access Anesthesia History Anesthesia History - classifications officer cc/cm: Anesthesia History - classifications officer cc/cm Hx Hospitalization No 11/28/24 14:24 Any Problems With Anesthesia No 11/28/24 14:24 Cholinesterase deficiency No 11/28/24 14:24 You/Your Family Experience No 11/28/24 14:24 fever (hyperthermia) with Relationship Recent Exposure to Contagious Disease Does patient have nerve No 11/28/24 14:24 stimulator Patient instructed to have device shut off --Does patient have Pacemaker No 12/15/24 08:05 or ICD? When Was Last Pacemaker Check QUESTION #4 FULL TEXT: You/Your Family Experience fever (hyperthermia) with Anesthesia Last Oral Intake Last Oral intake: Last Oral Intake NPO since 0000 12/15/24 08:05 Meds taken in AM with sips of No 12/15/24 08:05 water? Meds patient instructed to take am of surgery Any additional information?: Yes NPO since: 00:00 PONV PONV - classifications officer cc/cm: PONV - classifications officer cc/cm Female No 11/28/24 14:24 HX of Motion Sickness No 11/28/24 14:24 HX of N/V After Surgery No 11/28/24 14:24 Non-Smoker Yes 11/28/24 14:24 Duration of Surgery greater No 11/28/24 14:24 than 60 minutes Number of Risk Factors 1 11/28/24 14:24 PONV Score Low Risk 11/28/24 14:24 Height & Weight Height & Weight: Anesthesia: Height & Weight Height 5 ft 8 in 12/15/24 08:05 Weight: 80.3 kg 12/15/24 08:05 Body Mass Index (BMI) 26.9 12/15/24 08:05 Respiratory Assessment Respiratory Assessment - classifications officer cc/cm: Respiratory Tract Infection Hx - classifications officer cc/cm Hx Respiratory Tract Infection No 11/28/24 14:24 STOP Sleep Apnea STOP Sleep Apnea - classifications officer cc/cm: STOP Sleep Apnea - classifications officer cc/cm Hx Hypertension No 11/28/24 14:24 Hx Sleep Apnea Yes 11/28/24 14:24 CPAP No 11/28/24 14:24 BIPAP No 11/28/24 14:24 Do you snore loudly (louder Yes 11/28/24 14:24 than talking or can be heard Do you often feel tired/ fatigued/ sleepy during daytime? Has anyone observed you stop breathing during sleep? STOP Results Positive 11/28/24 14:24 QUESTION #5 FULL TEXT : Do you snore loudly (louder than talking or can be heard through closed doors)? 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 Specify any problems Hx of Preganancy in last 3 N/A 11/28/24 14:24 Months Nurse Filling Out Transfusion [email or web address] 11/28/24 14:24 & Questions: Date: 11/28/24 11/28/24 14:24 Time: 14:25 11/28/24 14:24 Patient unable to answer at this time (ie. confused, unrespo /Reproduction History /Reproductive History - classifications officer cc/cm: /Reproductive Hx- classifications officer cc/cm Hx Now No 11/28/24 14:24 Gestational Age (in weeks): EDC: Hx Hx Para Hx Section SAB No 11/28/24 14:24 Active Medications Active Medications: Current Medications Generic Name Dose Route Start Last Admin Trade Name Freq PRN Reason Stop Dose Admin Lactated Ringer's 1,000 mls @ 15 mls/hr 12/15/24 08:00 12/15/24 08:08 IV 15 mls/hr .Q48H TAO Administration PFSH Medical History Non-smoker Sleep apnea Dizziness History of snoring Elevated TSH COVID-19 Seasonal allergies Migraines High cholesterol Home Medications Medication Instructions Recorded Last Taken Type fluticasone propionate 50 1 spray intranasal QDAY 07/23 10/16 Unknown History mcg/actuation nasal spray,suspension (Flonase Allergy Relief) loratadine 10 mg capsule (Allergy 10 mg PO QDAY PRN al lergy symptoms 08/09/24 Unknown History Relief (loratadine)) Allergy/AdvReac Type Severity Reaction Status Date / Time Seasonal Allergies: Uncoded Allergy Unknown NEEDS Verified 12/15/24 08:04 FOLLOW-UP citalopram (From Celexa) Allergy Rash Verified 12/15/24 08:04 Family History Father Diabetes Myocardial infarction, Onset Age: 80 CVA (cerebral vascular accident) Mother Hyperlipemia Tremor Surgical History History of shoulder surgery History of rotator cuff surgery Social History household members: spouse current occupational status: employed 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
--- NOTE | 2024-12-15 09:16 | H&P.OPEN ---
HPI - General HPI Narrative ZAK HELM, is a 49 M who presents for screening colonoscopy. Patient has never had a colonoscopy in the past. He denies abdominal pain or blood in the stool. No family history of colon cancer. [facility] Medical History Non-smoker Sleep apnea Dizziness History of snoring Elevated TSH COVID-19 Seasonal allergies Migraines High cholesterol Home Medications Medication Instructions Recorded Last Taken Type fluticasone propionate 50 1 spray intranasal QDAY 08/09/24 Unknown History mcg/actuation nasal spray,suspension (Flonase Allergy Relief) loratadine 10 mg capsule (Allergy 10 mg PO QDAY PRN allergy symptoms 08/09/24 Unknown History Relief (loratadine)) Allergy/AdvReac Type Severity Reaction Status Date / Time Seasonal Allergies: Uncoded Allergy Unknown NEEDS Verified 12/15/24 08:04 FOLLOW-UP citalopram (From Celexa) Allergy Rash Verified 12/15/24 08:04 Family History Father Diabetes Myocardial infarction, Onset Age: 80 CVA (cerebral vascular accident) Mother Hyperlipemia Tremor Surgical History History of shoulder surgery History of rotator cuff surgery Social History household members: spouse current occupational status: employed 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 Smoking Status: Never smoker alcohol intake: never substance use type: does not use what type of physical activity do you participate in: running and weight training frequency: 5-6 times per week do you feel safe at home: Yes Past Medical/Surgical History Planned Operation Planned Operative Procedure(s): Colonoscopy - Open Access Previous Hospitalizations/Surgeries HX Hospitalizations: No Any Problems With Anesthesia: No You/Your Family Experience Fever (Hyperthermia) With Anes: No Cholinesterase deficiency: No Cardiovascular Hx Hypertension: No Respiratory Hx Sleep Apnea: Yes CPAP: No BIPAP: No Hx Respiratory Tract Infection/Cold (presently): No Do You Snore Loudly (louder than talking or can be heard): Yes Result (for STOP score): Positive Smoking Status: Never smoker Neurological Does patient have nerve stimulator: No Blood Disorder Hx High Cholesterol: Yes Reproduction : No Allergies Seasonal Allergies: Uncoded Allergy (Unknown, Verified 12/15/24 08:04) NEEDS FOLLOW-UP citalopram (From Celexa) Allergy (Verified 12/15/24 08:04) Rash Discharge Is Pt Admitted From a Skilled Nursing, or a Halfway: No After D/C, Where Do you Plan to Go: Return Home Vital Signs Vital Signs Vital Signs: 12/15/24 08:05 12/15/24 08:05 Temperature 97.3 F L Temperature Source Temporal Pulse Rate 76 Respiratory Rate 16 Respiratory Pattern Normal Blood Pressure 125/93 H Blood Pressure Mean 103 Blood Pressure Source Monitor Blood Pressure Position Semi-Fowlers Blood Pressure Location Left Arm Pulse Ox 95 Oxygen Delivery Method Room Air Weight Weight: 177 lb 0.499 oz Body Mass Index (BMI) 26.9 Physical Exam Const alert and oriented x3 HEENT normocephalic Eyes PERRL Resp normal respiratory effort and normal air movement Cardio regular rate and regular rhythm GI soft to palpation, non-tender and non-distended Extremity normal to inspection Assessment & Plan Assessment/Plan (1) Screen for colon cancer: PLAN: I explained endoscopy in detail to the patient. I explained the risks including but not limited to stroke or heart attack with anesthesia, perforation of the GI tract, bleeding, infection. I explained that any of these could necessitate further emergency surgery. The patient understands and all questions were answered sufficiently. The patient wishes to proceed with procedure. Jimbo Bentley MD Pager: [facility] [address] [place] [address], [address] [place] [address] Office: Surgery Risks - Colonoscopy Risks Include but are not Limited To: Risks include but are not limited to: Bleeding, perforation requiring further surgery, inability to complete colonoscopy requiring barium enema.
--- NOTE | 2024-12-15 09:42 | OP.COLON_ITS ---
Patient Name: Vinod Banegas Procedure Date: 12/15/2024 9:23 AM Date of : 1975 Age: 49 Procedure: Colonoscopy Indications: Screening for colorectal malignant neoplasm Providers: Jimbo Bentley MD Referring MD: Toina Avila Md Medicines: Propofol per Anesthesia Patient Profile: This is a 49 year old male. Refer to note in patient chart for documentation of history and physical. Last Colonoscopy: none. The patient's first colonoscopy is today. Complications: No immediate complications. Procedure: Pre-Anesthesia Assessment: - Prior to the procedure, a History and Physical was performed, and patient medications and allergies were reviewed. The patient's tolerance of previous anesthesia was also reviewed. The risks and benefits of the procedure and the sedation options and risks were discussed with the patient. All questions were answered, and informed consent was obtained. Prior Anticoagulants: The patient has taken no anticoagulant or antiplatelet agents. ASA Grade Assessment: II - A patient with mild systemic disease. After reviewing the risks and benefits, the patient was deemed in satisfactory condition to undergo the procedure. After I obtained informed consent, the scope was passed under direct vision. Throughout the procedure, the patient's blood pressure, pulse, and oxygen saturations were monitored continuously. The pediatric colonoscope was introduced through the anus and advanced to the cecum, identified by appendiceal orifice and ileocecal valve. The colonoscopy was performed without difficulty. The patient tolerated the procedure well. The quality of the bowel preparation was good. The ileocecal valve, appendiceal orifice, and rectum were photographed. Scope In: 9:31:00 AM Scope Withdrawal Time 0 hours 6 minutes 11 seconds Scope Out: 9:39:20 AM Total Procedure Duration Time 0 hours 8 minutes 20 seconds Findings: The entire examined colon appeared normal on direct and retroflexion views. Impression: - The entire examined colon is normal on direct and retroflexion views. - No specimens collected. Recommendation: - Discharge patient to home. - Resume previous diet. - Continue present medications. - Repeat colonoscopy in 10 years for screening purposes. Procedure Code(s): --- Professional --- 33267, Colonoscopy, flexible; diagnostic, including collection of specimen(s) by brushing or washing, when performed (separate procedure) Diagnosis Code(s): --- Professional --- Z12.11, Encounter for screening for malignant neoplasm of colon CPT copyright 2021 [employer]. All rights reserved. The codes documented in this report are preliminary and upon education analyst review may be revised to meet current compliance requirements. Jimbo Bentley MD 12/15/2024 9:41:17 AM This report has been signed electronically. Number of Addenda: 0 Note Initiated On: 12/15/2024 9:23 AM
--- NOTE | 2024-12-15 09:42 | OP.PROVAT_ITS ---
12/15/2024 Tonia Avila Md Re : Colonoscopy procedure for Vinod Banegas [place] This procedure was performed on Sunday, December 15, 2024. My impressions and recommendations are as follows: Impressions : - The entire examined colon is normal on direct and retroflexion views. - No specimens collected. Recommendations : - Discharge patient to home. - Resume previous diet. - Continue present medications. - Repeat colonoscopy in 10 years for screening purposes. My findings are described in the full procedure note, which is enclosed. If I can be of further assistance, please feel free to contact me at Doctor phone number(s): , Work: . Sincerely, Jimbo Bentley MD 12/15/2024 9:41:17 AM This report has been signed electronically.
--- NOTE | 2024-12-15 09:49 | PCM.POST.ANE ---
Anesthesia: Postop Eval I Current Vital Signs Temperature: 97 F Pulse Rate: 73 Blood Pressure: 103/71 Respiratory Rate: 16 Pulse Ox: 97 Oxygen Delivery Method: Room Air Assessment Airway patent: Yes Spontaneous unlabored respirations: Yes Mental status: Asleep nausea: No Vomiting: No Anesthesia Complication: No Fluid Hydration Crystalloid volume administer (ml): 500 Total IV fluid infused: 500 Progress Note Anesthesia document: Postop Eval 1 completed: Yes
--- NOTE | 2024-12-15 12:01 | PCM.POSTANE2 ---
Anesthesia Postop Eval I Sum Postop Eval Completion status Anesthesia document: Postop Eval 1 completed: Yes Anesthesia Postop Eval I Summary Anesthesia Postop Eval I Summary: Anesthesia Postop Eval I: Assessment Summary Airway patent Yes 12/15/24 09:50 [email or web address] Spontaneous unlabored Yes 12/15/24 09:50 [email or web address] respirations Mental status Asleep 12/15/24 09:50 [email or web address] nausea No 12/15/24 09:50 [email or web address] Vomiting No 12/15/24 09:50 [email or web address] Anesthesia Postop Eval I: Fluid Summary Crystalloid volume administer 500 12/15/24 09:50 [email or web address] (ml) Colloids volume administered ( ml) Blood Product volume administered (ml) Total IV fluid infused 500 12/15/24 09:50 [email or web address] Anesthesia Postop Eval I: Summary Notes Anesthesia Complication No 12/15/24 09:50 [email or web address] Anesthesia Complication Comment: Post-operative progress note Anesthesia: Postop Eval II Evaluation Mental status: Awake Pain Level: 0 nausea: No Vomiting: No
== END 2024-12-15 10:19 | disposition home or self-care (01) ==
LOC: EN 07:48 → AC 07:49
PROVIDERS: PCP Internal Medicine; Referring Provider Internal Medicine; Visit Provider Surgery
PROC: 0DJD8ZZ Inspection of Lower Intestinal Tract, Via Natural or Artificial Opening Endoscopic (ICD-10-PCS; CPT 45378; principal; 2024-12-15 08:55)
DX: Z12.11 Encounter for screening for malignant neoplasm of colon (principal); E78.00 Pure hypercholesterolemia, unspecified
CPT/HCPCS: 45378; J2405